=== PATIENT | male | born 1940 | race Caucasian/White ===

== ENCOUNTER → 2016-11-21 | Outpatient (CLI) | payer BC ==
[~2016-11-21] MED LIST: ACET-1311 PO; INSDGI SC; LYR25 PO; NVLGIPEN SQ; OMEP20CA9 PO; OXYC-57 PO; PREG200C PO; SUCR1TAB29 PO
--- NOTE | 2016-11-22 16:23 | DIAGNOSTIC IMAGING REPORT ---
PET/CT HISTORY: PANCREATIC CANCER TECHNIQUE: PET/CT was performed from the base of the skull through the pelvis following the intravenous administration of 13.5 mCi of F18-FDG. Non-contrast CT imaging was performed over the same range without breath-hold for attenuation correction of PET images and anatomic correlation, but not for primary interpretation as it is not of standard diagnostic quality. CT DOSE: COMPARISON: Outside hospital CT 11/03/2016. Chest abdomen and pelvis CT 08/14/2016. PET CT 03/28/2015. FINDINGS: HEAD AND NECK: Symmetric FDG uptake within the brain. A few enlarged and FDG avid left cervical and left neck base/supraclavicular lymph nodes. Dominant left cervical lymph node measures 1.6 cm and demonstrates an SUV max of 4.4. Cluster of the supraclavicular/neck base lymph nodes demonstrate an SUV max of 3.5. These are new from the prior PET/CT but remain unchanged in size from the prior outside hospital chest CT. CHEST: Moderate to large partially loculated left pleural effusion does not demonstrate abnormal FDG uptake. There are no enlarged or FDG avid mediastinal or hilar lymph nodes. Right jugular Port-A-Cath terminates in the distal SVC. No FDG avid or suspicious pulmonary nodules. Linear densities and consolidation within the left upper lobe and left lower lobe favor atelectasis. ABDOMEN/PELVIS: Postoperative changes consistent with prior Whipple procedure. No abnormal FDG uptake at the resection bed. There are no FDG avid hepatic or splenic lesions. Mild fat stranding within the right side of the omentum remains unchanged. This appears to be due to postoperative changes related to a ventral mesh repair. This demonstrate mild FDG uptake suggestive of postoperative change within the SUV max of 2. Given the stability this is unlikely to represent metastatic disease. No FDG avid or enlarged lymph nodes within the abdomen or pelvis. Small amount of ascites. The prostate gland is surgically absent. MUSCULOSKELETAL: There is no FDG-avid or destructive bone lesion. IMPRESSION: 1. Interval development of left cervical and left neck base/supraclavicular FDG avid lymphadenopathy. This favors recurrent lymphoma rather than pancreatic metastatic disease. 2. Moderate to large partially loculated left pleural effusion which does not demonstrate abnormal uptake. 3. No FDG avid or suspicious pulmonary nodules. 3. No abnormal FDG uptake within the abdomen or pelvis to suggest metastatic disease. Electronically signed by: Umesh aCrr M.D. 11/22/2016 4:21 PM Dictated Date/Time: 11/21/2016 11:50 AM
== END | disposition home or self-care (01) ==
LOC: C.PET 08:50
PROVIDERS: ATTEND Nurse Practitioner Family
DX: C25.0 Malignant neoplasm of head of pancreas (principal)

== ENCOUNTER → 2016-12-17 | Outpatient (CLI) | payer BC ==
--- NOTE | 2016-12-17 09:22 | DIAGNOSTIC IMAGING REPORT ---
CHEST 2 VIEWS ROUTINE CLINICAL HISTORY: Tachycardia carcinoma. Pleural effusion. COMPARISON STUDY: 11/12/2016 FINDINGS: There is a persistent left pleural effusion with associated left lower lobe atelectasis/consolidation. There has been no change in the position of the right-sided A-Port catheter. The right lung remains clear. No right pleural effusion is visualized.[ IMPRESSION: Persistent left pleural effusion with associated left basilar atelectasis/consolidation. Electronically signed by: Howard White M.D. 12/17/2016 9:21 AM Dictated Date/Time: 12/17/2016 9:17 AM
== END | disposition home or self-care (01) ==
LOC: C.RAD 08:42
PROVIDERS: ATTEND Nurse Practitioner Family
DX: C25.0 Malignant neoplasm of head of pancreas (principal); J90 Pleural effusion, not elsewhere classified

== ENCOUNTER → 2016-12-24 | Day surgery (SDC) | payer BC ==
--- NOTE | 2016-12-24 11:46 | DIAGNOSTIC IMAGING REPORT ---
ULTRASOUND-GUIDED FINE-NEEDLE ASPIRATION OF A LEFT CERVICAL LYMPH NODE HISTORY:. CERVICAL LYMPHADENECTOMY *REQUEST DENAE* COMPARISON: PET CT 11/21/2016. PROCEDURE: Written informed consent was obtained. The neck was prepped and draped in the usual sterile fashion. 1% lidocaine was used for local anesthesia. A total of 2 passes using a 25-gauge needle were made through a 1.4 cm left cervical lymph node under ultrasound guidance. Specimens were given to the on-site pathologist who determined adequate tissue for diagnosis. The patient tolerated the procedure well. There were no immediate complications. IMPRESSION: Successful ultrasound-guided fine-needle aspiration of a left cervical lymph node. Electronically signed by: Umesh Carr M.D. 12/24/2016 11:45 AM Dictated Date/Time: 12/24/2016 11:44 AM
== END | disposition home or self-care (01) ==
LOC: C.ULTR 10:32
PROVIDERS: ATTEND Surgery
DX: C25.9 Malignant neoplasm of pancreas, unspecified (principal); R59.0 Localized enlarged lymph nodes

== ENCOUNTER → 2016-12-31 | Outpatient (CLI) | payer BC ==
--- NOTE | 2016-12-31 10:12 | DIAGNOSTIC IMAGING REPORT ---
CHEST 2 VIEWS ROUTINE CLINICAL HISTORY: PANCREATIC CANCER COMPARISON STUDY: 12/17/2016 FINDINGS: The cardiac and mediastinal contours remain stable. There is a moderate left pleural effusion with associated left lower lobe atelectasis/consolidation. There is no right pleural effusion. The right lung is clear. The right-sided central venous catheter remains unchanged in position.[ IMPRESSION: Persistent moderate left pleural effusion with associated left lower lobe atelectasis/consolidation Electronically signed by: Howard White M.D. 12/31/2016 10:10 AM Dictated Date/Time: 12/31/2016 10:10 AM
== END | disposition home or self-care (01) ==
LOC: C.RAD 09:27
PROVIDERS: ATTEND Nurse Practitioner Family
DX: C25.0 Malignant neoplasm of head of pancreas (principal); J90 Pleural effusion, not elsewhere classified

== ENCOUNTER → 2017-01-02 | Outpatient (CLI) | payer BC | END | disposition home or self-care (01) | LOC: C.CPL 11:17 | PROVIDERS: ATTEND Surgery | DX: R59.0 Localized enlarged lymph nodes (principal); I25.10 Atherosclerotic heart disease of native coronary artery without angina pectoris ==

== ENCOUNTER 2017-01-10 08:57 | Day surgery (SDC) | payer BC ==
[2017-01-03 11:40] VITALS: BMI 26.0
[~2017-01-10] VITALS: Ht 190.5 cm; Wt 95.5 kg
[~2017-01-10 08:57] MED LIST changes: -ACET-1311 PO; +LACTATED RINGER'S 1000ML 1,000 ML IV SCH; -OXYC-57 PO; -PREG200C PO
[2017-01-10 09:15] VITALS: BP 140/73; PULSE 64; TEMP 36.9; O2SAT 97; Ht 190.5 cm; Wt 95.5 kg
[2017-01-10] MEDS ORDERED: ACET-1311 PO (10:41)
[2017-01-10] MEDS ORDERED: MIDAZOLAM HCL 1 MG/ML 2ML VIAL ONE (10:55)
[2017-01-10] MEDS ORDERED: PROPOFOL IV EMULSION 10 MG/ML 20 ML VIAL IV ONE (10:55)
[2017-01-10] MEDS ORDERED: ONDANSETRON INJ 2 MG/ML 2 ML VIAL ONE (10:55)
[2017-01-10] MEDS ORDERED: DEXAMETHASONE SOD INJ 4 MG/ML VIAL ONE (10:55)
[2017-01-10] MEDS ORDERED: FENTANYL CITRATE INJ 50 MCG/1 ML 2 ML VIAL ONE (10:55)
[2017-01-10] MEDS ORDERED: LIDOCAINE HCL 2% 2 ML VIAL (20MG/ML) ONE (10:55)
--- NOTE | 2017-01-10 11:47 | DIAGNOSTIC IMAGING REPORT ---
CT GUIDED WIRE LOCALIZATION OF LEFT LEVEL [address] DOSE: 332.34 mGycm CLINICAL HISTORY: Needle localization. COMPARISON STUDY: PET/CT November 21, 2016. PROCEDURE: The procedure, risks and benefits were discussed with the patient including the risk of bleeding, infection and injury to adjacent structures. The patient agreed to the procedure and informed written consent was obtained. The procedure was performed by Dr. Kong following a timeout. The patient was placed supine on the CT table and axial unenhanced images through the neck were obtained. These images again image demonstrated the 1.7 cm left level 2 cervical lymph node which was targeted for localization. Skin was prepped and draped in sterile fashion and local anesthesia was achieved with 1% lidocaine. Under intermittent CT guidance, a Singh 2 needle was directed into the superficial aspect of this lymph node. The needle was removed and the wire was deployed. The patient tolerated the procedure well and no immediate complications were evident. IMPRESSION: Wire localization of the left level 2 cervical lymph node. Electronically signed by: Rigo Kong M.D. 01/10/2017 11:46 AM Dictated Date/Time: 01/10/2017 11:43 AM
--- NOTE | 2017-01-10 11:54 | History & Physical Bridge Note ---
H&P Re-Evaluation Bridge Note: I have examined the patient, reviewed the History & Physical and in the interval since the performance of the History & Physical I have noted the following changes of clinical significance: No changes noted imaging with wire loc left neck mass done pt marked family at bedside
[2017-01-10] MEDS ORDERED: BUPIVACAINE 0.5 % 5 MG/1 ML MPF 30ML VIAL ONE (12:03)
[2017-01-10] MEDS ORDERED: ROCURONIUM BROMIDE 10 MG/ML 5 ML VIAL ONE (12:34)
[2017-01-10] MEDS ORDERED: HYDROmorphone INJ 1 MG/ML SYR IV PRN (12:45)
[2017-01-10] MEDS ORDERED: EpHEDrine SULFATE INJ 50 MG/ML AMP IV PRN (12:45)
[2017-01-10] MEDS ORDERED: ATROPINE SULFATE 0.1 MG/ML 5ML SYR IV PRN (12:45)
[2017-01-10] MEDS ORDERED: MEPERIDINE HCL 25 MG/ML CARP IV PRN (12:45)
[2017-01-10] MEDS ORDERED: LABETALOL HCL IV 5 MG/ML 20ML IV PRN (12:45)
[2017-01-10] MEDS ORDERED: ONDANSETRON INJ 2 MG/ML 2 ML VIAL IV PRN ×2 (12:45→13:30)
[2017-01-10] MEDS ORDERED: NEOSTIGMINE METHYLSULFATE 5 MG/5 ML SYR ONE (13:13)
[2017-01-10] MEDS ORDERED: GLYCOPYRROLATE INJ 0.2 MG/ML VIAL ONE (13:13)
--- NOTE | 2017-01-10 13:25 | [facility] Post Operative Brief Note ---
Immediate Operative Summary Operative Date January 10, 2017. Pre-Operative Diagnosis Cervical Lymphadenopathy history b-cell lymphoma Post-Operative Diagnosis Same Procedure(s) Performed Excisional Biopsy of Left Cervical Lymph Node with Prior Needle Localization By Radiology Surgeon Dr Andujar Vaccinator Surgeon(s) Gretchen Aguilar PA-C Estimated Blood Loss 5ML Findings cordell 2 cm node Specimens A. Left cervical Lymph node
[2017-01-10] MEDS ORDERED: OXYC-57 PO (13:29)
[2017-01-10] MEDS ORDERED: SODIUM CHLORIDE 0.9% 1000ML 1,000 ML IV SCH (13:30)
[2017-01-10] MEDS ORDERED: OXYCODONE/ACETAMINOPHEN 5-325 TAB PO PRN ×2 (13:30)
--- NOTE | 2017-01-10 13:38 | Discharge Instructions ---
Discharge Instructions Date of Service January 10, 2017. Admission Reason for Admission: Cervical Lymphadenopathy Discharge Discharge Diagnosis / Problem: Cervical Lymphadenopathy Discharge Goals Goal(s): Decrease discomfort Activity Recommendations Activity Limitations: as noted below Lifting Limitations: gradually increase as tolerated Exercise/Sports Limitations: gradually increase as tolerated May Resume Sexual Activity: when tolerated Shower/Bathe: tomorrow Driving or Machine Use: resume 3 days after discharge . Instructions / Follow-Up Instructions / Follow-Up Please call Dr. Andujar's office at [phone] with any questions or concerns. Please follow-up with Dr. Andujar in the office in 1-2 weeks. Please call the office at [phone] to make an appointment. Current Hospital Diet Patient's current hospital diet: Discharge Diet Recommended Diet: Regular Diet Procedures Procedures Performed: Excisional Biopsy of Left Cervical Lymph Node with Prior Needle Localization By Radiology Pending Studies Studies pending at discharge: yes List of pending studies: Pathology report. Medical Emergencies . Who to Call and When: Medical Emergencies: If at any time you feel your situation is an emergency, please call 911 immediately. . Non-Emergent Contact Non-Emergency issues call your: Primary Care Provider, Surgeon Call Non-Emergent contact if: temperature is above 101.5, your pain is not controlled, wound has increased drainage, wound has increased redness . "Provider Documentation" section prepared by Gretchen Aguilar. . VTE Core Measure Inpt VTE Proph given/why not?: SCD's
[2017-01-10] MEDS: FENTANYL CITRATE INJ 50 MCG/1 ML 2 ML VIAL IV PRN ×3 (13:43→13:58)
--- NOTE | 2017-01-10 14:26 | Anesthesiology Progress Note ---
Anesthesia Post Op Note Date & Time January 10, 2017 at 14:26 Vital Signs Pain Intensity: 4 Vital Signs Past 12 Hours Date Time Temp Pulse Resp B/P Pulse Ox O2 Delivery O2 Flow Rate FiO2 01/10/17 14:21 145/64 01/10/17 14:17 52 16 94 01/10/17 14:17 51 16 01/10/17 14:15 36.3 01/10/17 14:12 52 16 01/10/17 14:12 55 16 94 01/10/17 14:11 151/74 01/10/17 14:09 54 16 01/10/17 14:09 54 16 94 01/10/17 14:07 118/72 01/10/17 14:04 65 13 94 01/10/17 14:04 70 13 01/10/17 14:03 60 14 92 01/10/17 14:03 60 14 01/10/17 13:58 61 16 94 01/10/17 13:58 58 16 01/10/17 13:56 127/90 01/10/17 13:53 60 16 94 01/10/17 13:53 60 16 01/10/17 13:51 137/93 01/10/17 13:48 59 17 01/10/17 13:48 58 17 100 01/10/17 13:47 58 14 01/10/17 13:47 58 14 156/84 100 01/10/17 13:42 59 14 01/10/17 13:42 58 14 100 01/10/17 13:41 142/78 01/10/17 13:37 55 16 100 01/10/17 13:37 59 16 01/10/17 13:36 138/86 01/10/17 13:32 62 13 126/58 100 01/10/17 13:32 62 13 01/10/17 13:28 137/82 01/10/17 13:27 67 15 01/10/17 13:27 67 15 100 01/10/17 13:27 36.1 65 16 137/82 100 Mask 10 01/10/17 09:15 36.9 64 20 140/73 97 Room Air Notes Mental Status: alert / awake / arousable, participated in evaluation Pt Amnestic to Procedure: Yes Nausea / Vomiting: adequately controlled Pain: adequately controlled Airway Patency, RR, SpO2: stable & adequate BP & HR: stable & adequate Hydration State: stable & adequate Anesthetic Complications: no major complications apparent
[2017-01-10 14:30] VITALS: BP 145/76; PULSE 52; TEMP 36.6; O2SAT 94
[2017-01-10] MEDS ORDERED: OXYCODONE/ACETAMINOPHEN 5-325 TAB ONE (14:53)
[2017-01-10 14:59] VITALS: BP 163/76; PULSE 56; O2SAT 94
[2017-01-10 15:30] VITALS: BP 144/67; PULSE 55; TEMP 36.4; O2SAT 96
--- NOTE | 2017-01-10 15:30 | OPERATIVE REPORT ---
DATE OF OPERATION: 01/10/2017 PREOPERATIVE DIAGNOSIS: Left cervical lymphadenopathy, history of adenocarcinoma of the pancreas and B cell lymphoma. POSTOPERATIVE DIAGNOSIS: Same. PROCEDURE: Excisional biopsy of left cervical lymph node with prior needle localization by radiology. SURGEON: Dr. Andujar. CAPTAIN WAITER: Gretchen Aguilar PA-C. OPERATION AND FINDINGS: SUMMARY: The patient was taken to the radiology under ultrasound guidance, a guidewire was positioned in the submandibular area of the lymph node that was less than 2 cm in size. I reviewed the x-rays with the radiologist prior to taking the patient to surgery and this seemed to be in the submandibular area as the largest one. At this point, the patient was brought into the operating room under general anesthetic. We had taken the cap off the guidewire before and had tapered it on the skin edge, but it was still intact. We at this point, prepped the area and properly draped. We made an incision just inferior to the wire as it was going underneath just parallel to the sternocleidomastoid muscle and the anterior surface. We dissected down, we got into a little fibrous tissue in that area since we were quite high. As we followed the guidewire down we got to the point that it seemed like there was some tissues reminiscent of lymph node but nothing significant, as we were seen by CAT scan. It looks like seemed to be a lot of fatty infiltration. At this point, I elected to enlarge the incision and made it approximately an inch and a half long and stayed at the edge of the sternocleidomastoid and opened up that area more and we were able then to identify the lymph node as stated in the right submandibular area. We stayed right on the lymph node and circumferentially went around it, ligating some little vessels to it. The lymph node was pretty much about 98% removed, it was about 2 cm or a little bit less in size. It was sent fresh for permanent study. The area was then checked for hemostasis and appeared satisfactory. We then closed the wound with 2-0 Vicryl and 4-0 Monocryl. Steri-Strips applied. The procedure was tolerated well by the patient. Estimated blood loss approximately 3 mL. The patient was taken to recovery room in good condition. I attest to the content of the Intraoperative Record and any orders documented therein. Any exceptio ns are noted below.
[2017-01-10 16:10] VITALS: BP 143/72; PULSE 54; TEMP 36.4; O2SAT 94
[2017-04-30] MEDS ORDERED: PREG200C PO (07:46)
== END 2017-01-10 16:25 | disposition home or self-care (01) ==
LOC: C.ACU 08:57
PROVIDERS: ATTEND Surgery
DX: R59.1 Generalized enlarged lymph nodes (principal); C83.31 Diffuse large B-cell lymphoma, lymph nodes of head, face, and neck; I25.10 Atherosclerotic heart disease of native coronary artery without angina pectoris; E11.9 Type 2 diabetes mellitus without complications; K21.9 Gastro-esophageal reflux disease without esophagitis; E11.42 Type 2 diabetes mellitus with diabetic polyneuropathy; E11.43 Type 2 diabetes mellitus with diabetic autonomic (poly)neuropathy; K31.84 Gastroparesis; I10 Essential (primary) hypertension; I73.9 Peripheral vascular disease, unspecified; G25.81 Restless legs syndrome; E78.5 Hyperlipidemia, unspecified; Z79.4 Long term (current) use of insulin; Z83.3 Family history of diabetes mellitus; Z80.3 Family history of malignant neoplasm of breast

== ENCOUNTER → 2017-01-21 | Outpatient (CLI) | payer BC ==
[~2017-01-21] MED LIST changes: +ACET-1311 PO; -LACTATED RINGER'S 1000ML 1,000 ML IV SCH; +PREG200C PO
--- NOTE | 2017-01-21 12:14 | DIAGNOSTIC IMAGING REPORT ---
CHEST 2 VIEWS ROUTINE CLINICAL HISTORY: Pleural effusion. Pancreatic cancer. Lymphoma. COMPARISON STUDY: Chest radiograph December 31, 2016. FINDINGS: A right internal jugular [id number] is in place. There is no pneumothorax. A moderate to large left pleural effusion is unchanged since prior exam. Associated left lower lung opacity is similar to prior exam. Right lung is clear. There is no evidence of pulmonary edema. IMPRESSION: No significant change in a moderate to large left pleural effusion with associated atelectasis/consolidation. Electronically signed by: Rigo Kong M.D. 01/21/2017 12:13 PM Dictated Date/Time: 01/21/2017 12:11 PM
== END ==
LOC: C.RAD 11:19
PROVIDERS: ATTEND Nurse Practitioner Family
DX: C25.0 Malignant neoplasm of head of pancreas (principal)

== ENCOUNTER → 2017-03-25 | Outpatient (CLI) | payer BC ==
--- NOTE | 2017-03-25 11:01 | DIAGNOSTIC IMAGING REPORT ---
CHEST 2 VIEWS ROUTINE CLINICAL HISTORY: PANCREATIC CA, FOLLICULAR LYMPHOMA GRADE 3 COMPARISON STUDY: 01/21/2017 FINDINGS: The cardiac and mediastinal contours remain stable. There is a right-sided A-Port catheter. There is a persistent moderate left pleural effusion with associated left lower lobe atelectasis/consolidation. The right lung remains clear.[ IMPRESSION: Persistent moderate left pleural effusion with associated left lower lobe atelectasis/consolidation. Electronically signed by: Howard White M.D. 03/25/2017 10:59 AM Dictated Date/Time: 03/25/2017 10:58 AM
== END | disposition home or self-care (01) ==
LOC: C.RAD 10:25
PROVIDERS: ATTEND Nurse Practitioner Family
DX: C82.81 Other types of follicular lymphoma, lymph nodes of head, face, and neck (principal); J90 Pleural effusion, not elsewhere classified; J98.11 Atelectasis; C25.9 Malignant neoplasm of pancreas, unspecified

== ENCOUNTER → 2017-05-01 | Day surgery (SDC) | payer BC ==
[2017-04-30 07:47] VITALS: BMI 26.0
[~2017-05-01] VITALS: Ht 190.5 cm; Wt 95.5 kg
[~2017-05-01] MED LIST changes: +FENTANYL CITRATE INJ 50 MCG/1 ML 2 ML VIAL ONE; +LIDOCAINE HCL 2% 2 ML VIAL (20MG/ML) ONE; -LYR25 PO; +ONDANSETRON INJ 2 MG/ML 2 ML VIAL IV PRN; +PROPOFOL IV EMULSION 10 MG/ML 20 ML VIAL IV ONE
[2017-05-01 08:15] VITALS: Ht 190.5 cm; Wt 95.5 kg
--- NOTE | 2017-05-01 08:21 | Endo History and Physical ---
History & Physical Date of Service: May 01, 2017. Chief Complaint: Abnormal CT Referring Physician: Dr. Navarro History of Present Illness Patient with a history of pancreatic cancer and lymphoma found to have thickening esophagus on a prior CT. The patient has been referred for endoscopic evaluation. He denies having chest pain, shortness of breath or difficulty with swallowing. Past Medical History Diabetes, Reflux, Cancer Past Surgical History Hx Cardiac Surgery: No Hx Internal Defibrillator: No Hx Pacemaker: No Hx Abdominal Surgery: No Hx of Implantable Prosthesis: No Hx Post-Op Nausea and Vomiting: No Hx Cancer Surgery: Yes (PROSTATECTOMY, WHIPPLE PROCEDURE) Hx Thoracic Surgery: Yes (THORACENTESIS) Hx Orthopedic: Yes (LOW BACK SURGERY) Hx Urinary Tract Surgery: No Family History None Social History Smoking Status: Never Smoker Hx Substance Use: No Hx Alcohol Use: No Allergies Coded Allergies: Ezetimibe (Verified Allergy, Unknown, "JUST DIDN'T FEEL RIGHT", 04/30/17) Gabapentin (Verified Allergy, Unknown, "JUST DIDN'T FEEL RIGHT", 04/30/17) Current Medications Reported Home Medications Medications Dose Route/Sig Max Daily Dose Days Date Category Dose Instructions Lyrica (Pregabalin) 200 Mg Cap 200 Mg PO BID 04/30/17 Reported Tylenol (Acetaminophen) 325 Mg Tab 650 Mg PO Q6H PRN 01/10/17 Reported Lantus (Insulin Glargine) Unknown Strength Inj Unknown Dose SC AMPM 01/03/17 Reported STATES HE USES ONLY WHEN NEEDED AND DOES NOT KNOW HOW MUCH HE GETS Novolog Flexpen (Insulin Aspart) 100 Units/Ml Inj 1 Unit SQ UD 01/03/17 Reported SLIDING SCALE Prilosec (Omeprazole) 20 Mg Cap 20 Mg PO QAM 07/05/16 Reported Carafate (Sucralfate) 1 Gm Tab 1 Gm PO QAM 07/05/16 Reported Vital Signs Weight (Kilograms): 95.45 Height (Feet): 6 Height (Inches): 3 Physical Exam General Appearance: no apparent distress Respiratory/Chest: Auscultation: breath sounds normal, no rales/crackles Abdomen: Inspection & Palpation: soft Assessment and Plan Upper endoscopy today for evaluation of an abnormal CT scan. Discussed the risks to include bleeding, infection, aspiration, perforation and discomfort.
--- NOTE | 2017-05-01 08:54 | Discharge Instructions ---
Endoscopy Patient Instructions Date / Procedure(s) Performed May 01, 2017. EGD Allergy Information Coded Allergies: Ezetimibe (Verified Allergy, Unknown, "JUST DIDN'T FEEL RIGHT", 04/30/17) Gabapentin (Verified Allergy, Unknown, "JUST DIDN'T FEEL RIGHT", 04/30/17) Discharge Date / Findings May 01, 2017. Gastritis Small hiatal hernia Medication Instructions Reported Home Medications Medications Dose Route/Sig Max Daily Dose Days Date Category Dose Instructions Lyrica (Pregabalin) 200 Mg Cap 200 Mg PO BID 04/30/17 Reported Tylenol (Acetaminophen) 325 Mg Tab 650 Mg PO Q6H PRN 01/10/17 Reported Lantus (Insulin Glargine) Unknown Strength Inj Unknown Dose SC AMPM 01/03/17 Reported STATES HE USES ONLY WHEN NEEDED AND DOES NOT KNOW HOW MUCH HE GETS Novolog Flexpen (Insulin Aspart) 100 Units/Ml Inj 1 Unit SQ UD 01/03/17 Reported SLIDING SCALE Prilosec (Omeprazole) 20 Mg Cap 20 Mg PO QAM 07/05/16 Reported Carafate (Sucralfate) 1 Gm Tab 1 Gm PO QAM 07/05/16 Reported Provider Instructions Activity Restrictions - No exercising or heavy lifting for 24 hours. - Do not drink alcohol the day of the procedure. - Do not drive a car or operate machinery until the day after the procedure. - Do not make any important decisions or sign important papers in 24 hours after the procedure. Following Day: - Return to full activity which may include returning to work/school. Diet Start your diet with liquids and light foods (jello, soup, juice, toast). Then eat your usual diet if not nauseated. Treatment For Common After Affects For mild abdominal pain, bloating, or excessive gas: - Rest - Eat lightly - Lie on right side Follow-Up Information Follow-up with Eleanor MONIQUE as scheduled Await pathology results Follow-up with my office as needed Anesthesia Information What You Should Know You have had a procedure that required some medicine to reduce anxiety and discomfort. This treatment is called moderate sedation. After receiving the treatment, you may be sleepy, but you will be able to breathe on your own. The effects of the treatment may last for several hours. Follow these instructions along with Activity/Diet recommendations noted above: * Do NOT do anything where dizziness or clumsiness would be dangerous. * Rest quietly at home today, then you can be up and about tomorrow. * Have a responsible person stay with you the rest of today. * You may have had an I.V. today. If so, you may take the dressing off later today. Recommendations Call your doctor if: * Trouble breathing * Continuous vomiting for more than 24 hours * Temperature above 101 degrees * Severe abdominal pain or bloating * Pain not relieved by pain medicine ordered * There is increased drainage or redness from any incision * A large amount of rectal bleeding greater than 2-3 tablespoons. (If you had a polyp/s removed or have hemorrhoids, a small amount of blood - from the rectum is to be expected.) * You have any unanswered questions or concerns. IN THE EVENT OF A SERIOUS EMERGENCY, GO TO THE NEAREST EMERGENCY ROOM Your discharge instructions were prepared by provider Carrie Covington. Patient Instructions Signature Page Bo Guerra Patient (or Guardian) Signature/Date: I have read and understand the instructions given to me by my caregivers. Caregiver/RN/Doctor Signature/Date: The above-named patient and/or guardian has received patient instructions on this date. + Original Patient Signature Page (only) stays with chart. Please make copy for patient.
--- NOTE | 2017-05-01 08:59 | GI REPORT ---
Procedure Date: 05/01/2017 8:43 AM Procedure: Upper GI endoscopy Indications: Abnormal CT of the GI tract Medicines: Monitored Anesthesia Care Complications: No immediate complications. Estimated blood loss: Minimal. Estimated Blood Loss: Estimated blood loss was minimal. Procedure: Pre-Anesthesia Assessment: - Prior to the procedure, a History and Physical was performed, and patient medications, allergies and sensitivities were reviewed. The patient's tolerance of previous anesthesia was reviewed. - The patient is competent. The alternatives, risks and benefits of the procedure were discussed at length with the patient. The patient's proxy verbalized understanding of the risks as well as the alternatives and wished to proceed with the procedure. - The risks and benefits of the procedure and the sedation options and risks were discussed with the patient. All questions were answered and informed consent was obtained. - Patient identification and proposed procedure were verified prior to the procedure by the physician, the nurse and the paraprofessional aide. The procedure was verified in the procedure room. - Pre-procedure physical examination revealed no contraindications to sedation. - ASA Grade Assessment: III - A patient with severe systemic disease. - After reviewing the risks and benefits, the patient was deemed in satisfactory condition to undergo the procedure. - The anesthesia plan was to use monitored anesthesia care (MAC). - Immediately prior to administration of medications, the patient was re-assessed for adequacy to receive sedatives. - The heart rate, respiratory rate, oxygen saturations, blood pressure, adequacy of pulmonary ventilation, and response to care were monitored throughout the procedure. - The physical status of the patient was re-assessed after the procedure. After obtaining informed consent, the endoscope was passed under direct vision. Throughout the procedure, the patient's blood pressure, pulse, and oxygen saturations were monitored continuously. The Scope was introduced through the mouth, and advanced to the afferent and efferent jejunal loops. The upper GI endoscopy was accomplished without difficulty. The patient tolerated the procedure well. Findings: The examined esophagus was normal. A small hiatus hernia was found. The proximal extent of the gastric folds (end of tubular esophagus) was 39 cm from the incisors. The hiatal narrowing was 40 cm from the incisors. The Z-line was 39 cm from the incisors. Diffuse moderate inflammation characterized by congestion (edema) and erythema was found in the entire examined stomach. Biopsies were taken with a cold forceps for histology. Estimated blood loss was minimal. 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 This was characterized by healthy appearing mucosa. The examined jejunum was normal. Impression: - Normal esophagus. - Small hiatus hernia. - Bile gastritis. Biopsied. 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 - Normal examined jejunum. Recommendation: - Discharge patient to home (ambulatory). - Advance diet as tolerated today. - Await pathology results. - Return to my office PRN. Carrie Covington D.O. Carrie Covington, 05/01/2017 8:59:03 AM This report has been signed electronically. Note Initiated On: 05/01/2017 8:43 AM I attest to the content of the Intraoperative Record and orders documented therein, exceptions below
--- NOTE | 2017-05-01 09:12 | Anesthesiology Progress Note ---
Anesthesia Post Op Note Date & Time May 01, 2017 at 09:12 Vital Signs Pain Intensity: 0 Vital Signs Past 12 Hours Date Time Temp Pulse Resp B/P (MAP) Pulse Ox O2 Delivery O2 Flow Rate FiO2 05/01/17 08:54 61 16 94/58 (70) 96 Room Air 05/01/17 08:17 37.2 74 16 140/74 (96) 96 Room Air Notes Mental Status: alert / awake / arousable, participated in evaluation Pt Amnestic to Procedure: Yes Nausea / Vomiting: adequately controlled Pain: adequately controlled Airway Patency, RR, SpO2: stable & adequate BP & HR: stable & adequate Hydration State: stable & adequate Anesthetic Complications: no major complications apparent
[2017-05-01 09:24] VITALS: BP 109/74; PULSE 64; O2SAT 96
== END | disposition home or self-care (01) ==
LOC: C.GI 08:04
PROVIDERS: ATTEND Internal Medicine Gastroenterology
DX: R93.3 Abnormal findings on diagnostic imaging of other parts of digestive tract (principal); K29.50 Unspecified chronic gastritis without bleeding; K44.9 Diaphragmatic hernia without obstruction or gangrene; E11.9 Type 2 diabetes mellitus without complications; Z85.07 Personal history of malignant neoplasm of pancreas; Z79.4 Long term (current) use of insulin; Z90.79 Acquired absence of other genital organ(s)

== ENCOUNTER → 2017-05-06 | Outpatient (CLI) | payer BC ==
[~2017-05-06] MED LIST changes: -FENTANYL CITRATE INJ 50 MCG/1 ML 2 ML VIAL ONE; -LIDOCAINE HCL 2% 2 ML VIAL (20MG/ML) ONE; -ONDANSETRON INJ 2 MG/ML 2 ML VIAL IV PRN; -PROPOFOL IV EMULSION 10 MG/ML 20 ML VIAL IV ONE
[2017-05-06 08:43] LABS: ESTIMATED AVERAGE GLUCOSE 169 mg/dl; HA1C FLAG Normal (Normal)
== END | disposition home or self-care (01) ==
LOC: C.LAB 15:09
PROVIDERS: ATTEND Nurse Practitioner Family
DX: E11.9 Type 2 diabetes mellitus without complications (principal); C25.9 Malignant neoplasm of pancreas, unspecified

== ENCOUNTER → 2017-05-27 | Outpatient (CLI) | payer BC ==
--- NOTE | 2017-05-27 13:18 | DIAGNOSTIC IMAGING REPORT ---
PET/CT CLINICAL HISTORY: Pancreatic cancer. History of lymphoma and prostate cancer. TECHNIQUE: A PET/CT was performed from the skull base through the upper thighs following intravenous injection of 13.4 mCi of F 18 FDG IV. The injection was performed at 9:05 AM on May 27, 2017 and imaging began at 10:24 AM on May 27, 2017. Unenhanced CT was performed for attenuation correction purposes and anatomic localization. COMPARISON STUDY: PET/CT November 21, 2016. FINDINGS: Head and neck: The previously described index left sided cervical lymph node has been resected. The additional enlarged left cervical/supraclavicular lymph node shown on PET/CT of November 21, 2016 are now normal in size and have no significant abnormal FDG uptake. An index left supraclavicular lymph node shown on image 57 measures 7 mm in short axis diameter. It previously measured 1.1 cm. There is no cervical lymphadenopathy. A right internal jugular [id number] is in place. Chest: Bilateral gynecomastia is noted. A moderate size left pleural effusion has slightly decreased in size since prior exam. Associated pleural thickening is noted. Left lower lobe airspace opacity with volume loss suggests round atelectasis. There is no significant abnormal pleural FDG uptake. There are no suspicious pulmonary nodules. Note is made of a mildly enlarged right axillary lymph node shown image 71 measures 1.5 x 1 cm. This has mild FDG uptake with an SUV max of 2.3. This finding is new since PET/CT of November 21, 2016. Mild right infrahilar FDG uptake with an SUV max of 3.1 is noted. The SUV max previously measured 2.6. No corresponding enlarged lymph node is identified on unenhanced CT. Abdomen and Pelvis: No suspicious FDG uptake is identified within the abdomen or the pelvis. A few prominent para-aortic lymph nodes are noted. The largest is a left paraaortic lymph node located adjacent to the left renal vein shown on image 166. This node measures 1 cm in short axis diameter. This has no abnormal FDG uptake. Mild splenomegaly is similar to prior exam. A small amount of ascites is noted. There is no bowel obstruction. The prostate is surgically absent. Musculoskeletal: No suspicious skeletal uptake is identified. IMPRESSION: 1. Mildly enlarged right axillary lymph node which demonstrates mild FDG uptake, a new finding since PET/CT of November 21, 2016. While nonspecific, this favors lymphoma rather than metastatic pancreatic cancer. 2. Interval resolution of left cervical/supraclavicular lymphadenopathy since PET/CT of November 21, 2016. 3. Slight decrease in size of a moderate left pleural effusion with associated left lower lobe airspace opacity and volume loss which favors round atelectasis. 4. Slight increase in mild nonspecific right infrahilar FDG uptake. Electronically signed by: Rigo Kong M.D. 05/27/2017 1:16 PM Dictated Date/Time: 05/27/2017 11:47 AM
== END | disposition home or self-care (01) ==
LOC: C.PET 08:24
PROVIDERS: ATTEND Nurse Practitioner Family
DX: C25.9 Malignant neoplasm of pancreas, unspecified (principal)

== ENCOUNTER → 2017-08-28 | Outpatient (CLI) | payer BC ==
[~2017-08-28] MED LIST changes: +OPTIRAY 320 IV PRN
--- NOTE | 2017-08-28 15:22 | DIAGNOSTIC IMAGING REPORT ---
CHEST CT WITH CONTRAST CT DOSE: 1142.42 mGy.cm HISTORY: Pancreatic cancer. Follow-up. TECHNIQUE: Multiaxial CT images of the chest were performed following the intravenous administration of contrast. A dose lowering technique was utilized adhering to the principles of ALARA. COMPARISON: Head CT 05/27/2017. Chest CT 08/14/2016. FINDINGS: There is again noted a moderate partially loculated left pleural effusion. Mild left pleural thickening and enhancement also remains unchanged. Mild disc diffuse esophageal wall thickening is also unchanged. A few small left ventricular lymph nodes remain stable. Increase in size in a single enlarged right axillary lymph node measuring 1.8 x 1.2 cm. This previous measured 1.5 x 1.0 cm. Bilateral gynecomastia. No change in the scattered low density areas within the extrapleural space. These have a non masslike appearance. Dominant area of extrapleural density is seen adjacent to the T11 vertebral body on image 276. The heart remains mildly enlarged. The central pulmonary arteries are patent. Normal caliber thoracic aorta. Subcentimeter right anterior diaphragmatic lymph nodes remain stable. Persistent focal consolidation involving the majority of the left lower lobe. This favors round atelectasis. This remains unchanged. A few linear scarlike density seen within the lingula. The central airways are patent. No pneumothorax. No pulmonary nodules. No suspicious lytic or blastic osseous lesions. Right jugular Port-A-Cath terminates in the distal SVC. IMPRESSION: 1. Increase in size in the single enlarged right axillary lymph node. This is concerning for metastatic disease. 2. Subcentimeter left supraclavicular lymph nodes remain stable. 3. Moderate partially loculated left pleural effusion, unchanged. 4. No change in the suspected atelectasis within the majority of the left lower lobe. 5. Scattered low density areas within the left extrapleural space also remain unchanged. These have a non masslike appearance at this time. This bears watching on future examinations to exclude metastatic involvement. Electronically signed by: Umesh Carr M.D. 08/28/2017 3:21 PM Dictated Date/Time: 08/28/2017 3:09 PM
--- NOTE | 2017-08-28 15:27 | DIAGNOSTIC IMAGING REPORT ---
CT ABD/PELVIS IV AND ORAL CONT CLINICAL HISTORY: PANCREATIC CA COMPARISON STUDY: 08/14/2016 TECHNIQUE: Following the IV administration of 119 mL of Optiray-320, CT scan of the abdomen and pelvis was performed from the lung bases to the proximal femurs. Images are reviewed in the axial, sagittal, and coronal planes. IV contrast was administered without complication. A dose lowering technique was utilized adhering to the principles of ALARA. CT DOSE: FINDINGS: Lower chest: There are coronary artery calcifications present. There is a moderate left pleural effusion with left lower lobe atelectasis/consolidation. Liver: The contrast-enhanced liver is normal in size, contour, and attenuation. There is no intrahepatic biliary ductal dilatation. The hepatic veins and portal veins are patent. Gallbladder: Surgically absent Spleen: There is lower pole splenic scarring. The spleen is mildly enlarged measuring 13.8 cm. Pancreas: There are postsurgical changes of a prior Whipple's procedure. The pancreatic duct is at the upper limits of normal in diameter. The pancreas body and tail appears somewhat atrophic. There is a probable stent at the level of the pancreaticojejunostomy. Adrenal glands: Unremarkable. Kidneys: There is a 1 cm left renal hypodensity likely representing a cyst. There is no hydronephrosis. Bowel: There are no transition zones indicate bowel obstruction. There is no acute diverticulitis. There are no findings to indicate acute appendicitis. Peritoneum: There is decreasing ascites. There is no free air. Vasculature: The abdominal aorta is normal in course and caliber. Adenopathy: There are borderline enlarged para-aortic lymph nodes. In retrospect these remain similar to the preceding study. Pelvic viscera: There are postprostatectomy changes. There is bladder wall thickening. Skeletal structures: No destructive osseous lesions are seen. IMPRESSION: 1. Persistent moderate left pleural effusion with left lower lobe atelectasis/consolidation 2. Postsurgical changes of prior Whipple procedure 3. Persistent mild splenomegaly 4. Decreasing low volume ascites 5. Borderline enlarged hilar lymph nodes 6. Bladder wall thickening Electronically signed by: Howard White M.D. 08/28/2017 3:25 PM Dictated Date/Time: 08/28/2017 3:18 PM
== END | disposition home or self-care (01) ==
LOC: C.CTS 12:52
PROVIDERS: ATTEND Nurse Practitioner Family
DX: Z85.07 Personal history of malignant neoplasm of pancreas (principal); J90 Pleural effusion, not elsewhere classified; R18.8 Other ascites; N32.9 Bladder disorder, unspecified; R59.0 Localized enlarged lymph nodes; R91.8 Other nonspecific abnormal finding of lung field

== ENCOUNTER → 2017-09-10 | Outpatient (CLI) | payer BC ==
[~2017-09-10] MED LIST changes: -OPTIRAY 320 IV PRN
--- NOTE | 2017-09-10 11:49 | DIAGNOSTIC IMAGING REPORT ---
ULTRASOUND-GUIDED FINE-NEEDLE ASPIRATION CLINICAL HISTORY: 1.6 x 1.3 cm right axillary lymph node COMPARISON STUDY: CT chest 08/28/2017. PROCEDURE: The risks, benefits, and alternatives to the procedure were discussed with the patient. Written informed consent was obtained. The patient was placed supine in ultrasound, and the 1.6 x 1.3 cm lymph node in the right axilla was localized by ultrasound and selected for fine needle aspiration. The right axilla was prepped and draped in the usual sterile fashion. The lymph node was aspirated under ultrasound guidance with 5 passes utilizing 25-gauge needles. Specimens were reviewed by the pathologist in real-time and deemed adequate for diagnosis. The patient tolerated the procedure well and left the department in satisfactory condition. IMPRESSION: Completed fine-needle aspiration of a mildly enlarged right axillary lymph node as above. The above report was generated using voice recognition software. It may contain grammatical, syntax or spelling errors. Electronically signed by: Christiano Ruth M.D. 09/10/2017 11:48 AM Dictated Date/Time: 09/10/2017 11:46 AM
== END | disposition home or self-care (01) ==
LOC: C.ULTR 09:28
PROVIDERS: ATTEND Internal Medicine Hematology & Oncology
DX: Z85.07 Personal history of malignant neoplasm of pancreas (principal); C83.30 Diffuse large B-cell lymphoma, unspecified site

== ENCOUNTER 2017-10-15 08:06 | Day surgery (SDC) | payer BC ==
[2017-10-10 13:23] VITALS: BMI 28.0
[~2017-10-15] VITALS: Ht 188 cm; Wt 100.0 kg
[~2017-10-15 08:06] MED LIST changes: +LACTATED RINGER'S 1000ML 1,000 ML IV SCH; -NVLGIPEN SQ
[2017-10-15] MEDS ORDERED: PROPOFOL IV EMULSION 10 MG/ML 20 ML VIAL IV ONE (08:11)
[2017-10-15] MEDS ORDERED: LIDOCAINE HCL 2% 2 ML VIAL (20MG/ML) ONE (08:11)
[2017-10-15] MEDS ORDERED: FENTANYL CITRATE INJ 50 MCG/1 ML 2 ML VIAL ONE (08:11)
[2017-10-15] MEDS ORDERED: MIDAZOLAM HCL 1 MG/ML 2ML VIAL ONE (08:11)
[2017-10-15 08:50] VITALS: BP 131/72; PULSE 60; TEMP 36.6; O2SAT 96; Ht 188 cm; Wt 100.0 kg
--- NOTE | 2017-10-15 09:51 | History & Physical Bridge Note ---
H&P Re-Evaluation Bridge Note: I have examined the patient, reviewed the History & Physical and in the interval since the performance of the History & Physical I have noted the following changes of clinical significance: No changes notedpt marked at bedside
[2017-10-15] MEDS ORDERED: ONDANSETRON INJ 2 MG/ML 2 ML VIAL ONE (09:57)
[2017-10-15] MEDS ORDERED: BUPIVACAINE 0.5 % 5 MG/1 ML MPF 30ML VIAL ONE (09:59)
[2017-10-15] MEDS ORDERED: ATROPINE SULFATE 0.1 MG/ML 5ML SYR IV PRN (10:30)
[2017-10-15] MEDS ORDERED: EpHEDrine SULFATE INJ 50 MG/ML AMP IV PRN (10:30)
--- NOTE | 2017-10-15 10:52 | [facility] Post Operative Brief Note ---
Immediate Operative Summary Operative Date Oct 15, 2017. Pre-Operative Diagnosis right axilla enlarged lymph node; history lymphoma Post-Operative Diagnosis right axilla enlarged lymph node; history lymphoma Procedure(s) Performed Excisional Biopsy of Right Axillary Node with Frozen Section Surgeon Dr. Pawan Andujar Galley Hand Surgeon(s) Gretchen Aguilar PA-C Estimated Blood Loss 3ml Findings See Below 2 cm pathological lymph node Specimens Frozen Specimen: sent out of room to lab by Calos Rogel at 1046. -right axillary lymph node Microbiology:sent out of room to lab by Calos Rogel at 1046. -right axillary lymph node for culture (gram stain, anaerobic, aerobic, culture and sensitivity) Anesthesia Type MAC
[2017-10-15] MEDS ORDERED: SODIUM CHLORIDE 0.9% 1000ML 1,000 ML IV SCH (11:05)
[2017-10-15] MEDS ORDERED: OXYC-57 PO (11:09)
--- NOTE | 2017-10-15 11:11 | Discharge Instructions ---
Discharge Instructions Date of Service Oct 15, 2017. Admission Reason for Admission: Right Axillary Lymphadenopathy, Iddm Discharge Discharge Diagnosis / Problem: Right Axillary Lymphadenopathy, Iddm Discharge Goals Goal(s): Decrease discomfort, Improve function Activity Recommendations Activity Limitations: as noted below Lifting Limitations: no more than 10 pounds Exercise/Sports Limitations: until after follow-up appointment May Resume Sexual Activity: after follow-up appointment Shower/Bathe: tomorrow Driving or Machine Use: resume 3 days after discharge . Instructions / Follow-Up Instructions / Follow-Up Please follow-up with Dr. Andujar in 1-2 weeks in the General Surgery Clinic for incision check. Please call the office at [phone] to make an appointment. Please call the office with any questions or concerns. Current Hospital Diet Patient's current hospital diet: Discharge Diet Recommended Diet: Regular Diet Procedures Procedures Performed: Excisional Biopsy of Right Axillary Node with Frozen Section Pending Studies Studies pending at discharge: yes List of pending studies: Pathology report. Medical Emergencies . Who to Call and When: Medical Emergencies: If at any time you feel your situation is an emergency, please call 911 immediately. . Non-Emergent Contact Non-Emergency issues call your: Primary Care Provider, Surgeon Call Non-Emergent contact if: temperature is above 101.5, your pain is not controlled, wound has increased drainage, wound has increased redness . "Provider Documentation" section prepared by Gretchen Aguilar. . VTE Core Measure Inpt VTE Proph given/why not?: SCD's
[2017-10-15] MEDS ORDERED: ONDANSETRON INJ 2 MG/ML 2 ML VIAL IV PRN (11:15)
[2017-10-15] MEDS ORDERED: OXYCODONE/ACETAMINOPHEN 5-325 TAB PO PRN ×2 (11:15)
[2017-10-15 11:35] VITALS: BP 123/87; PULSE 51; TEMP 36.5; O2SAT 100
[2017-10-15 12:05] VITALS: BP 114/59; PULSE 51; TEMP 36.5; O2SAT 98
--- NOTE | 2017-10-15 12:13 | Anesthesiology Progress Note ---
Anesthesia Post Op Note Date & Time Oct 15, 2017 at 12:13 Vital Signs Pain Intensity: 0 Vital Signs Past 12 Hours Date Time Temp Pulse Resp B/P (MAP) Pulse Ox O2 Delivery O2 Flow Rate FiO2 10/15/17 11:35 36.5 51 20 123/87 100 Room Air 10/15/17 11:25 36.3 54 18 119/69 98 Room Air 10/15/17 11:15 82 24 118/80 97 Room Air 10/15/17 11:05 36.3 52 16 106/70 99 Oxymask 10 10/15/17 08:50 36.6 60 18 131/72 (91) 96 Room Air Notes Mental Status: alert / awake / arousable, participated in evaluation Pt Amnestic to Procedure: Yes Nausea / Vomiting: adequately controlled Pain: adequately controlled Airway Patency, RR, SpO2: stable & adequate BP & HR: stable & adequate Hydration State: stable & adequate Anesthetic Complications: no major complications apparent
--- NOTE | 2017-10-15 12:26 | OPERATIVE REPORT ---
DATE OF OPERATION: 10/15/2017 SURGEON: Dr. Andujar. FISHER DIP NET: Gretchen Aguilar PA-C. PREOPERATIVE DIAGNOSIS: History of lymphoma, right axillary lymph node, possible changing of lymphoma with transition. POSTOPERATIVE DIAGNOSIS: Same. PROCEDURE: Excisional biopsy of right axillary node. SUMMARY: The patient was brought into the operating room theater in supine position, we actually set him up a little bit, the right arm was placed on an arm board. We had palpated this area which was right underneath the right pectoralis area, probably a level 2 nodes. We at this point, with some IV sedation, the area was prepped with Betadine solution and properly draped. We used 0.5 Marcaine without epinephrine to infiltrate just at the edge of the pectoralis major, approximately a 2-inch area, and incision was made, deepened to subcutaneous tissue. We started at the edge of the pectoralis and went into the axilla where we could feel on the chest wall this node. We dissected it out, it was quite adherent to the chest wall. There were some nerve fibers in there but I am sure it was not related to any long thoracic nerve, we seemed to be quite anterior for that. At this point, once we freed this up, actually the lymph node came apart on its own, obviously pathologic was about 2 cm in size. We took it all out, it did come out in pieces. The area was then checked for hemostasis and appeared satisfactory. We closed with 2-0 Dexon a few interrupted bleeders and reapproximated the axillary fascia and the subcutaneous tissue and then Monocryl and Steri-Strips applied. The procedure was tolerated well by the patient. Estimated blood loss approximately 3 mL. The patient was taken to recovery room in good condition. I attest to the content of the Intraoperative Record and any orders documented therein. Any exception s are noted below.
== END 2017-10-15 12:19 | disposition home or self-care (01) ==
LOC: C.ACU 08:06
PROVIDERS: ATTEND Surgery
DX: C82.14 Follicular lymphoma grade II, lymph nodes of axilla and upper limb (principal); D64.9 Anemia, unspecified; I25.10 Atherosclerotic heart disease of native coronary artery without angina pectoris; E11.43 Type 2 diabetes mellitus with diabetic autonomic (poly)neuropathy; I10 Essential (primary) hypertension; K21.9 Gastro-esophageal reflux disease without esophagitis; M15.9 Polyosteoarthritis, unspecified; K74.60 Unspecified cirrhosis of liver; E78.5 Hyperlipidemia, unspecified; I44.7 Left bundle-branch block, unspecified; C25.9 Malignant neoplasm of pancreas, unspecified; I73.9 Peripheral vascular disease, unspecified; Z85.46 Personal history of malignant neoplasm of prostate; G25.81 Restless legs syndrome; E53.8 Deficiency of other specified B group vitamins; E55.9 Vitamin D deficiency, unspecified; Z79.4 Long term (current) use of insulin; Z79.899 Other long term (current) drug therapy

== ENCOUNTER → 2017-10-30 | Outpatient (CLI) | payer BC ==
[~2017-10-30] MED LIST changes: -LACTATED RINGER'S 1000ML 1,000 ML IV SCH
--- NOTE | 2017-10-30 10:46 | DIAGNOSTIC IMAGING REPORT ---
PET/CT SKULL-THIGH CLINICAL HISTORY: 77 years-old Male with LYPHOMA. Follow-up study in a patient with non-Hodgkin's lymphoma. Subsequent treatment strategy. Prior biopsy of enlarged right axillary lymph node. Patient also has a history of pancreatic cancer with prior Whipple procedure. Last chemotherapy treatment was 10/28/2017. History of prior prostate cancer. COMPARISON: CT chest, abdomen and pelvis 08/28/2017, PET CT 05/27/2017 TECHNIQUE: The patient was injected with 13.3 mCi of F-18 fluorodeoxyglucose (FDG) and an emission scan was performed from the skull vertex to the toes. Noncontrast CT was performed for attenuation correction and anatomic localization. The blood glucose level was 104 mg/dl. FINDINGS: HEAD AND NECK: There is a physiologic distribution of activity, with no hypermetabolic foci. Likely physiologic radiotracer uptake noted within the region of the lingual tonsils and salivary glands. CHEST: There is decreased size of the previously noted hypermetabolic and previously biopsied right axillary lymph node which measured 1.8 x 1.[address] chest dated 08/28/2017, now measuring 1.1 x 0.7 cm with SUV max measuring 1.4. No additional hypermetabolic adenopathy or hypermetabolic pulmonary foci identified. ABDOMEN AND PELVIS: There is a physiologic distribution of activity within the liver, spleen, adrenal glands, gastrointestinal and urinary tracts. No hypermetabolic adenopathy. Increased metabolic activity is noted within the descending sigmoid junction and proximal sigmoid colon with areas of hypermetabolic activity measuring up to SUV max of 9.7 within the proximal sigmoid colon as seen on image 225 of series 2. No corresponding mass or definite soft tissue thickening identified. These findings are likely physiologic. MUSCULOSKELETAL SYSTEM AND EXTREMITIES: There is a physiologic distribution of activity within the bone marrow, with no hypermetabolic foci. Mildly increased symmetric uptake about the bilateral shoulders is likely secondary to recent activity or inflammatory changes. ADDITIONAL CT FINDINGS: Right internal jugular [id number] catheter is again noted with distal tip terminating near the superior cavoatrial junction. Heart is mildly enlarged with coronary arterial disease. Bilateral moderate gynecomastia. No pathologically enlarged lymph nodes of the chest identified. Coronary arterial disease with aortic annular calcifications. No aortic aneurysm. Moderate sized partially loculated left pleural effusion again noted which appears unchanged with left basilar consolidation also unchanged suggesting atelectasis. Ill-defined areas of low-attenuation within the extrapleural space adjacent to the left lung base are unchanged. Atherosclerosis of the carotid bulbs. No suspicious pulmonary nodules identified. No pneumoperitoneum or pneumatosis. Postsurgical changes from prior Whipple procedure. The spleen does not appear to be significantly enlarged. Mild nonspecific bilateral perinephric and diffuse mesenteric stranding. Postoperative changes from prior prostatectomy. Mild wall thickening of the urinary bladder with partial distention, nonspecific. Moderate volume of formed stool throughout the colon suggest constipation. Colonic diverticulosis without diverticulitis. Normal appendix. Diastases recti. Multilevel degenerative changes about the spine. No suspicious lytic or blastic bony lesions are identified. Postsurgical changes of the lower lumbar spine. IMPRESSION: 1. Decreased size and metabolic activity of the previously biopsied right axillary lymph node, compatible with positive response to therapy. No new pathologically enlarged or hypermetabolic adenopathy. 2. Moderate sized partially loculated left pleural effusion with associated probable left basilar atelectasis is also unchanged. 3. Areas of increased radiotracer uptake about the descending sigmoid colon junction and sigmoid colon are likely physiologic without corresponding abnormality seen on the CT images. These findings could be correlated with colonoscopy. 4. Additional incidental CT findings as above. The above report was generated using voice recognition software. It may contain grammatical, syntax or spelling errors. Electronically signed by: Christiano Ruth M.D. 10/30/2017 10:45 AM Dictated Date/Time: 10/30/2017 9:44 AM
== END | disposition home or self-care (01) ==
LOC: C.PET 06:45
PROVIDERS: ATTEND Internal Medicine Hematology & Oncology
DX: C85.90 Non-Hodgkin lymphoma, unspecified, unspecified site (principal); Z85.07 Personal history of malignant neoplasm of pancreas

== ENCOUNTER → 2018-03-18 | Outpatient (CLI) | payer BC | END | disposition home or self-care (01) | LOC: C.LABSPEC 10:34 | PROVIDERS: ATTEND Nurse Practitioner Family | DX: R35.0 Frequency of micturition (principal); R32 Unspecified urinary incontinence ==

== ENCOUNTER 2018-08-18 10:10 | Inpatient (IN) ==
[2018-08-18] MEDS ORDERED: GLUCAGON FOR INJ 1 MG VIAL SQ PRN (11:54)
[2018-08-18] MEDS ORDERED: DEXTROSE 50% 50 ML SYRINGE IV PRN (11:54)
[2018-08-18] MEDS ORDERED: ACETAMINOPHEN 325 MG TAB PO PRN (11:54)
[2018-08-18] MEDS ORDERED: GLUCOSE 40% GEL 15 GM TUBE PO PRN (11:54)
[2018-08-18] MEDS ORDERED: GLUCOSE 10 TABS/TUBE PO PRN (11:54)
[2018-08-18] MEDS ORDERED: LACTATED RINGER'S 1,000 ML IV SCH (12:00)
--- NOTE | 2018-08-18 12:12 | History & Physical Report ---
Date of Service August 18, 2018 Assessment & Plan (1) Hypokalemia: Patient with longstanding diarrhea, acutely worsening over the last few days as well as poor PO intake. Hypokalemia with K=2.5. He was administered 40mEq in clinic * Check EKG * Administer 60mEq potassium now * Repeat BMP at 16:00 today, provide additional K supplementation as needed * Patient may benefit from daily K supplement on discharge * Present on Admission?: Yes (2) Diarrhea: Patient reports chronic diarrhea over the last year with acute worsening over the last few days. Denies fever, abdominal pain or bloating. No dietary changes, no sick contacts. Infectious, vs chemotherapy induced, vs malabsorption * Check stool culture * Check stool for c.diff * If negative infectious workup may consider adding anti-diarrhea agents * Present on Admission?: Yes (3) Diabetes: Well controlled on Lantus 30u qHS. Last AIC=5.9 on 06/09/18. Blood sugar on labs [id number] * Contiue Lantus 30u qHS * CC diet as tolerated * ISS * Continue to monitor * Present on Admission?: Yes (4) GERD (gastroesophageal reflux disease): Patient with history of GERD. Has Omeprazole and Carafate as outpatient which he does not routinely use * Protonix 40mg po daily * Present on Admission?: Yes (5) HTN (hypertension): Blood pressure 122/71 in office. Patient is presently not on any anti- hypertensive agents. * Continue to monitor * Present on Admission?: Yes (6) Lymphoma: Patient with NHL presently on chemotherapy. Follows with Oncology * Oncology consultation - appreciate assistance with this case * Present on Admission?: Yes (7) H/O malignant neoplasm of pancreas: Patient s/p Whipple. * Oncology consult as above * F/E/N - LR at 80mL/hr x 1 liter, Potassium x 60mEq now, repeat BMP at 16:00 with additional supplementation as needed. Check BMP, Mg and PO4 in AM, CC diet as tolerated Ppx - Lovenox for DVT ppx, Protonix daily Code - Full per discussion with patient Dispo - Admit to medical floor Present on Admission?: Yes History of Present Illness Chief Complaint: Weakness Primary Care Provider: NO PCP Mr. 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 Patient is s/p Whipple 08/05/15. He is presently receiving Paclitaxel, Gemcitabine chemotherapy and follows with Dr. Bev Braga from Oncology. Patient reports chronic diarrhea for years. Reports that over the last few days his diarrhea worsened - became green in color, foul smelling with mucus. He reports approximately 6 episodes per day of watery stool as well as night time episodes with incontinence. Stools are explosive at times. He denies abdominal pain or bloating. Denies fevers/chills or sweats. He reports poor appetite and decreased PO intake. Additionally patient is complaining of diffuse weakness, feeling that he "lost his power". He was seen in clinic today and had labs drawn - significant for hypokalemia, K=2.5. He was administered Magnesium x 2gm and Potassium x 40mEq and sent to [facility] for direct admission for continued repletion and monitoring. Patient is presently without additional complaints. Specifically denies fevers , chills, sweats, dizziness, presyncope, CP, palpitations, SOB, cough, wheeze, abdominal pain, dysuria, numbness/weakness or loss of balance. Allergies Allergy/AdvReac Type Severity Reaction Status Date / Time ezetimibe Allergy Unknown "JUST Verified 06/08/18 15:03 DIDN'T FEEL RIGHT" gabapentin Allergy Unknown "JUST Verified 06/08/18 15:03 DIDN'T FEEL RIGHT" Home Medications Home Medications Medication Instructions Recorded Confirmed Type insulin glargine [Lantus U-100 30 unit SUBCUT HS 04/30/18 06/08/18 History Insulin] omeprazole 20 mg PO DAILY PRN 04/30/18 06/08/18 History pregabalin [Lyrica] 200 mg PO BID 04/30/18 06/08/18 History sucralfate [Carafate] 1 dose PO QAM 04/30/18 06/08/18 History Past Med/Surg History Social History Current Living Situation: Spouse Feels Safe at Home: Yes Smoking Status: Former smoker Second Hand Exposure: No Hx Alcohol Use: No Hx Substance Use: No Beliefs That Will Affect Care: None Preferred Language: Yoruba Visual Impairment: No Limitations Review of Systems All systems reviewed & are unremarkable except as noted in HPI & below Physical Exam 2 Physical Exam: General: patient resting comfortably, NAD, non-toxic in appearance but appears fatigued and weak, AA&O x 4 Skin: warm, dry, intact, no rashes or lesions, multiple well healed abdominal surgical scars HEENT: NC/AT, PERRL, EOMI, anicteric sclera, conjunctiva without injection, external ear normal to inspection and nontender, nares patent, moist mucus membranes, dentition intact, no oropharyngeal lesions, neck supple, trachea midline, no LAD, no thyromegaly, no JVD Heart: +S1/S2, regular, no m/r/g, Mediport present right chest, non-tender, no erythema, edema or drainage Lungs: equal air entry bilaterally, no rales/rhonchi/wheezes Abd: +BS, soft, NT/ND, no masses/organomegaly/ascites Ext: warm, 2+ pulses in UE/LE bilaterally, no clubbing/cyanosis or edema Neuro: nonfocal, patient AA&O x 4, speech intact, no facial droop, moving all extremities on command with equal strength 5/5 Results & Data Laboratory Results Lab Results 08/18/18 Range/Units 12:22 POC Glucose 127 H (70-99) From Clinic 08/18/18: WBC=5.2 Hg=9.5 Hct=29.6 Plt=96 Ng=613 K=2.5 Ci=297 HCO3=26 BN=7 Cr=0.9 Ca=7.8 Mg=2.2 Alb=2.3 Code Status & VTE Plan Code Status Full per discussion with patient VTE Prophylaxis Plan VTE Prophylaxis will be ordered: Yes Critical Care Time Critical Care Time: No _ (1) Diarrhea Diarrhea type: unspecified type Qualified Code(s): R19.7 - Diarrhea, unspecified (2) Diabetes Diabetes mellitus type: type 2 Diabetes mellitus [facility] insulin use: with [facility] use Diabetes mellitus complication status: without complication Diabetes mellitus complication detail: Diabetic retinopathy severity: Proliferative retinopathy type: Diabetes mellitus macular edema: Laterality : Chronic kidney disease stage: Qualified Code(s): E11.9 - Type 2 diabetes mellitus without complications; Z79.4 - [facility] (current) use of insulin (3) GERD (gastroesophageal reflux disease) Esophagitis presence: esophagitis presence not specified Qualified Code(s): K21.9 - Gastro-esophageal reflux disease without esophagitis (4) HTN (hypertension) Hypertension type: essential hypertension Qualified Code(s): I10 - Essential (primary) hypertension (5) Lymphoma B-cell lymphoma type: Follicular lymphoma grade: Follicular lymphoma type : Hodgkin lymphoma type: Lymphoma site: Lymphoma type: non-Hodgkin Mature NK/T-cell lymphoma type: Non-Hodgkin lymphoma type: follicular Non- follicular lymphoma type: Other specified types of NK/T-cell lymphoma:
[2018-08-18] MEDS ORDERED: POTASSIUM CHLORIDE 20 MEQ TABCR PO ONE ×2 (12:15→21:00)
[2018-08-18] MEDS: INSULIN ASPART 100 UNITS/ML 3 ML PEN SC SCH ×3 (13:08→21:20)
[2018-08-18 16:43] LABS: INR 1.3 (0.9-1.1); Partial Thromboplastin Ratio 1.5; Partial Thromboplastin Time 38.1 Seconds (21.0-31.0); Prothrombin Time 12.5 Seconds (9.0-12.0)
[2018-08-18 16:48] LABS: BUN Creatinine Ratio 8.9 (10-20); Calcium 7.2 mg/dl (8.5-10.1); Creatinine Clr Calc Pharmacy 92.2 ml/min; Est GFR (African American) 100.9; Est GFR (Non-African American) 87.1; Potassium 2.8 mmol/L (3.5-5.1)
[2018-08-18] MEDS: MAGNESIUM SULFATE / D5W 1 GM/100 ML BAG IV SCH ×2 (21:19→22:23)
[2018-08-18] MEDS: PREGABALIN 100 MG CAP PO SCH (21:19)
[2018-08-18] MEDS: ENOXAPARIN INJ 40 MG/0.4 ML SYR SQ SCH (21:20)
[2018-08-18] MEDS: INSULIN GLARGINE SOLOSTAR 100 UNITS/ML 3 ML PEN SC SCH (21:22)
[2018-08-19 05:45] LABS: Hematocrit (blood only) 24.7 % (42-52); Hemoglobin 7.9 g/dL (14.0-18.0); Mean Corpuscular Volume 79.2 fL (80-100); RDW Standard Deviation 51.9 fL (36.4-46.3); Red Blood Count 3.12 M/uL (4.7-6.1)
[2018-08-19 06:04] LABS: Mean Platelet Volume 9.1 fL (7.4-10.4); Platelet Count 96 K/uL (130-400)
[2018-08-19 06:08] LABS: Basophils # (auto) 0.01 K/uL (0-0.2); Basophils % (auto) 0.3 %; Eosinophils # (auto) 0.05 K/uL (0-0.5); Eosinophils % (auto) 1.3 %; Immature Granulocytes # (auto) 0.02 K/uL (0.00-0.02); Immature Granulocytes % (auto) 0.5 %; Lymphocytes # (auto) 1.21 K/uL (1.2-3.4); Lymphocytes % (auto) 30.3 %; Monocytes # (auto) 0.44 K/uL (0.11-0.59); Neutrophils # (auto) 2.27 K/uL (1.4-6.5); Neutrophils % (auto) 56.6 %; RBC Morphology Unremarkable
[2018-08-19 06:22] LABS: BUN Creatinine Ratio 10.4 (10-20); Calcium 7.3 mg/dl (8.5-10.1); Creatinine Clr Calc Pharmacy 114.2 ml/min; Est GFR (African American) 110.2; Est GFR (Non-African American) 95.1; Magnesium 2.4 mg/dl (1.8-2.4); Potassium 3.2 mmol/L (3.5-5.1)
[2018-08-19] MEDS ORDERED: HEPARIN 100 UNIT/ML 5ML FLUSH FLUSH PRN (06:26)
[2018-08-19] MEDS: PANTOprazole 40 MG TAB PO SCH (08:13)
[2018-08-19] MEDS: PREGABALIN 100 MG CAP PO SCH ×2 (08:13→20:47)
[2018-08-19] MEDS ORDERED: POTASSIUM CHLORIDE 10 MEQ TABCR PO STA (08:18)
[2018-08-19] MEDS: INSULIN ASPART 100 UNITS/ML 3 ML PEN SC SCH ×4 (08:58→20:50)
[2018-08-19] MEDS ORDERED: POTASSIUM CHLORIDE / WTR 20 MEQ/100 ML PLCT IV ONE (09:00)
--- NOTE | 2018-08-19 09:01 | Hospitalist Progress Note ---
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 Patient is s/p Whipple 08/05/15. He is presently receiving Paclitaxel, Gemcitabine chemotherapy and follows with Dr. Moran from Oncology. chronic diarrhea Getting worse in the last few days, Seems minimal improving, will continue supportive care, GI consult if needed, follow-up lab study results and stool study results Hypokalemia today's potassium 3.2, magnesium 2.4, replace and continue to watch Up on scheduled potassium supplementation daily upon discharge, Well-controlled diabetic continueon Lantus 30u qHS. Last AIC=5.9 on 06/09/18. Continue insulin sliding scale gastroesophageal reflux disease, continue Protonix 40mg po daily HTN, stable continue current medication, NHL presently on chemotherapy. Follows with Oncology H/O malignant neoplasm of pancreas, s/p Whipple. 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 Subjective Generally doing okay, pleasant, minimal fatigue, Reported continue has diarrhea, which is not new, he cannot control stools came out after recent stent placement 6 months ago Review of Systems Constitutional: Positive weakness, or fatigue Respiratory: no cough, sputum, wheezing, or dyspnea on exertion Cardiac: No chest pain, No orthopnea, No PND, No claudication, No palpitations , Abdomen: No pain, No nausea, No vomiting, No constipation, No GI bleeding Musculoskeletal: No joint pain, No muscle pain, No swelling, No calf pain, No problem reported : No dysuria, No urinary frequency, No incontinence, No hematuria Neurologic: No paralysis, No weakness, No numbness/tingling, No vertigo, No balance problems Psychiatric: No depression symptoms, No anhedonism, No anxiety, No insomnia, No substance abuse Heme: No abnormal bleeding/bruising, No clotting problems, No swollen lymph nodes, No night sweats Skin: No rash, No itch, No new/changing skin lesions, No color change, No bleeding Physical Exam 2 Vital Signs (Past 24 Hours): Last Vital Signs Temp 36.5 C 08/19/18 07:59 Pulse 71 08/19/18 07:59 Resp 20 08/19/18 07:59 BP 119/65 08/19/18 07:59 Pulse Ox 96 08/19/18 07:59 Physical Exam: General Appearance: WD/WN, no apparent distress, Eyes: normal inspection, PERRL, EOMI, sclerae normal ENT: normal ENT inspection, hearing grossly normal, pharynx normal Neck: supple, no adenopathy, thyroid normal, no JVD, no carotid bruits, trachea midline Respiratory/Chest: chest non-tender, normal breath sounds, no respiratory distress, no accessory muscle use, breath sounds, rales, wheezing Cardiovascular: regular rate, rhythm, no JVD, no murmur Abdomen: Hyper active bowel sounds, non tender, soft, no organomegaly, Extremities: normal range of motion, non-tender, normal inspection, no pedal edema, Neurologic/Psychiatric: acquisitions analyst II-XII nml as tested, no motor/sensory deficits, alert, normal mood/affect, oriented x 3 Skin: normal color, warm/dry, no rash Lymphatic: no adenopathy Results & Data Laboratory Results Laboratory Results - last 24 hr 08/18/18 08/18/18 08/18/18 12:22 16:21 16:21 WBC RBC Hgb Hct MCV MCH MCHC RDW Std Deviation RDW Coeff of Hortencia Plt Count MPV Immature Gran % (Auto) Neut % (Auto) Lymph % (Auto) Pine % (Auto) Eos % (Auto) Baso % (Auto) Immature Gran # (Auto) Neut # (Auto) Lymph # (Auto) Pine # (Auto) Eos # (Auto) Baso # (Auto) RBC Morphology PT 12.5 H INR 1.3 H APTT 38.1 H PTT Ratio 1.5 Sodium 137 Potassium 2.8 L Chloride 103 Carbon Dioxide 27 Anion Gap 7.0 BUN 7 Creatinine 0.78 Est Cr Clr Drug Dosing 92.2 Est GFR ( Amer) 100.9 Est GFR (Non-Af Amer) 87.1 BUN/Creatinine Ratio 8.9 L Glucose 125 H POC Glucose 127 H Calcium 7.2 L Ionized Calcium Magnesium 08/18/18 08/18/18 08/19/18 16:30 20:45 05:34 WBC RBC Hgb Hct MCV MCH MCHC RDW Std Deviation RDW Coeff of Hortencia Plt Count MPV Immature Gran % (Auto) Neut % (Auto) Lymph % (Auto) Pine % (Auto) Eos % (Auto) Baso % (Auto) Immature Gran # (Auto) Neut # (Auto) Lymph # (Auto) Pine # (Auto) Eos # (Auto) Baso # (Auto) RBC Morphology PT INR APTT PTT Ratio Sodium Potassium Chloride Carbon Dioxide Anion Gap BUN Creatinine Est Cr Clr Drug Dosing Est GFR ( Amer) Est GFR (Non-Af Amer) BUN/Creatinine Ratio Glucose POC Glucose 134 H 136 H Calcium Ionized Calcium 1.07 L Magnesium 08/19/18 08/19/18 08/19/18 05:34 05:34 07:44 WBC 4.00 L RBC 3.12 L Hgb 7.9 L Hct 24.7 L MCV 79.2 L MCH 25.3 MCHC 32.0 RDW Std Deviation 51.9 H RDW Coeff of Hortencia 19.0 H Plt Count 96 L MPV 9.1 Immature Gran % (Auto) 0.5 Neut % (Auto) 56.6 Lymph % (Auto) 30.3 Pine % (Auto) 11.0 Eos % (Auto) 1.3 Baso % (Auto) 0.3 Immature Gran # (Auto) 0.02 Neut # (Auto) 2.27 Lymph # (Auto) 1.21 Pine # (Auto) 0.44 Eos # (Auto) 0.05 Baso # (Auto) 0.01 RBC Morphology Unremarkable PT INR APTT PTT Ratio Sodium 140 Potassium 3.2 L Chloride 107 Carbon Dioxide 31 Anion Gap 2.0 L BUN 7 Creatinine 0.63 Est Cr Clr Drug Dosing 114.2 Est GFR ( Amer) 110.2 Est GFR (Non-Af Amer) 95.1 BUN/Creatinine Ratio 10.4 Glucose 64 L POC Glucose 75 Calcium 7.3 L Ionized Calcium Magnesium 2.4 _ (1) Diarrhea Diarrhea type: unspecified type Qualified Code(s): R19.7 - Diarrhea, unspecified (2) Diabetes Diabetes mellitus type: type 2 Diabetes mellitus 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 Diabetes mellitus complication status: without complication Diabetes mellitus complication detail: Diabetic retinopathy severity: Proliferative retinopathy type: Diabetes mellitus macular edema: Laterality : Chronic kidney disease stage: Qualified Code(s): E11.9 - Type 2 diabetes mellitus without complications; Z79.4 - [facility] (current[facility] use of insulin (3) GERD (gastroesophageal reflux disease) Esophagitis presence: esophagitis presence not specified Qualified Code(s): K21.9 - Gastro-esophageal reflux disease without esophagitis (4) HTN (hypertension) Hypertension type: essential hypertension Qualified Code(s): I10 - Essential (primary) hypertension (5) Lymphoma B-cell lymphoma type: Follicular lymphoma grade: Follicular lymphoma type : Hodgkin lymphoma type: Lymphoma site: Lymphoma type: non-Hodgkin Mature NK/T-cell lymphoma type: Non-Hodgkin lymphoma type: follicular Non- follicular lymphoma type: Other specified types of NK/T-cell lymphoma:
--- NOTE | 2018-08-19 09:58 | Oncology Consultation ---
Date of Consultation August 19, 2018 Assessment & Plan (1) Pancreatic cancer: Mr. Guerra has received 2 cycles of gemcitabine and Abraxane and his tolerance was reasonable until this episode. He will be due of restaging scans soon, so we will get a clearer sense of whether his treatment is working. In the meantime, we can check a CA 19-9, which will give us some sense of his disease status. Present on Admission?: Yes (2) Diarrhea: I suspect this is infectious, given the sudden onset and severity, but I cannot rule out chemotherapy-induced diarrhea. I would send stool cultures and studies for C diff. If these are negative, we can start imodium. In the meantime , I woud continue with supportive care and electrolyte repletion. Present on Admission?: Yes (3) Pancytopenia: Due to chemotherapy. His drop in hemoglobin may be dilutional given the hydration he's receiving, though he was incontinent overnight and is using the toilet, so we don't really have accurate I&O data. Still, I would consider a PRBC transfusion since he is below 8 and is very weak. Present on Admission?: Yes History of Present Illness Reason for Consultation: Metastatic pancreatic cancer Profuse diarrhea Attending Physician: Bharath Guzman MD, PhD, [facility] History of Present Illness Mr. Guerra is a 78 year old man with a history of multiple cancers. He was diagnosed in early 2014 with diffuse large B cell lymphoma. He was treated with R-EPOCH and had a complete metabolic remission. During the workup for the lymphoma, in Dec, 2014, he was found to have a pancreatic head adenocarcinoma. In July,, he had a Whipple procedure which revealed a T1 N0 cancer with negative margins. He was treated with adjuvant gemcitabine through May. He was then found to have a low-grade follicular lymphoma in an enlarged right axillary lymph node in November,. He was treated with 4 cycles of bendamustine and rituxan, with a complete response, followed by maintenance Rituxan. He has had a steadily rising CA 19-9 since late 2016. A PET/CT from March, demonstrated some uptake in his rectum. Several attempts to schedule a colonoscopy were made, though they were unsuccessful for various reasons. 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 He started gemcitabine and Abraxane for stage IV pancreatic cancer on 07/07/18. He came for treatment yesterday and was looking ill and very weak. He reported 3-4 days of profuse, watery, foul- smelling, green-colored diarrhea. He had up to 6 or more bowel movements per day in that time. He was hypokalemic in my office. He also was concerned about going home due to his weakness. I arranged for a direct admission as a result. Allergies Allergy/AdvReac Type Severity Reaction Status Date / Time ezetimibe Allergy Unknown "JUST Verified 06/08/18 15:03 DIDN'T FEEL RIGHT" gabapentin Allergy Unknown "JUST Verified 06/08/18 15:03 DIDN'T FEEL RIGHT" Home Medications Home Medications Medication Instructions Recorded Confirmed Type insulin glargine [Lantus U-100 30 unit SUBCUT HS 04/30/18 06/08/18 History Insulin] omeprazole 20 mg PO DAILY PRN 04/30/18 06/08/18 History pregabalin [Lyrica] 200 mg PO BID 04/30/18 06/08/18 History sucralfate [Carafate] 1 dose PO QAM 04/30/18 06/08/18 History Patient History Medical History Intractable pain (Acute 10/06/14) GERD (gastroesophageal reflux disease) (Chronic) HTN (hypertension) (Chronic) Non-occlusive coronary artery disease (Chronic) Febrile neutropenia (Resolved) Neutropenic fever (Acute) Diabetes (Chronic) NHL (non-Hodgkin's lymphoma) (Chronic 10/06/14) Pancreatic abnormality (Acute) IPMN (intraductal papillary mucinous neoplasm) (Chronic) Prostate cancer (Resolved) Diabetic gastroparesis (Chronic) Pancreatic cancer (Chronic) Obstructive jaundice (Chronic) Chemotherapy-induced neuropathy (Chronic) LBBB (left bundle branch block) (Chronic) [place] (acute kidney injury) (Chronic) Ascites (Chronic) Cirrhosis of liver (Chronic) Hypokalemia (Chronic) PVCs (premature ventricular contractions) (Chronic) Prolonged QT interval (Chronic) SBP (spontaneous bacterial peritonitis) (Chronic) Traumatic hematuria (Resolved) UTI (urinary tract infection) (Resolved) Iron deficiency anemia (Chronic) Hypotension (Resolved) Pancytopenia (Chronic) Neutropenia (Chronic) Back pain (Acute) Cholangitis (Chronic) Diarrhea Elevated lipase (Acute) Fever and chills (Acute) Hypokalemia (Acute) Lactic acidosis (Acute) Neutropenic fever (Acute) Right wrist pain (Acute) Sepsis (Acute) Wound drainage (Acute) Cancer PANCREATIC CANCER LYMPHOMA-CHEMO CURRENTLY (LAST 04/14/18) PROSTATE Diabetes mellitus, type 2 GERD (gastroesophageal reflux disease) Peripheral neuropathy Surgical History History of cardiac cath 5 YEARS AGO/NO STENTS History of cataract surgery History of colonoscopy History of pancreatic surgery Whipple procedure History of prostatectomy History of tooth extraction Social History Current Living Situation: Spouse Other Information That Helps Us Care for You: No Feels Safe at Home: Yes Safety Concerns: Feels Safe At This Time Smoking Status: Former smoker Do You Dip or Chew Tobacco: No Smoking End Date: 1994 Second Hand Exposure: No Tobacco Cessation Education Requested by Patient: No Hx Alcohol Use: No Hx Substance Use: No Beliefs That Will Affect Care: None Communication Ability: Effective Review of Systems Constitutional: + fatigue, + weakness and + anorexia; no fever Ear, Nose, Mouth, Throat: + dry mouth; no epistaxis and no bleeding gums Respiratory: no cough and no dyspnea Cardiovascular: no chest pain, no palpitations and no edema Gastrointestinal: as per Subjective / HPI Genitourinary (Male): no dysuria and no hematuria Musculoskeletal: + muscle weakness (generalized); no back pain Integumentary: no rash and no bleeding lesions Neurologic: + generalized weakness; no falls and no headache(s) Hematologic / Lymphatic: no easy bleeding and no easy bruising Physical Exam 2 Vital Signs (Past 24 Hours): Last Vital Signs Temp 36.5 C 08/19/18 07:59 Pulse 71 08/19/18 07:59 Resp 20 08/19/18 07:59 BP 119/65 08/19/18 07:59 Pulse Ox 96 08/19/18 07:59 Constitutional: + ill appearing; no acute distress Eyes: + anicteric sclerae and EOM intact bilaterally ENMT: Nose: + dry nasal mucous membranes Mouth: no oropharynx abnormality Respiratory: normal respiratory effort, lungs clear to auscultation Cardiovascular: RRR, no murmur, no edema Gastrointestinal (Abdomen): normal bowel sounds, soft, nontender, no hepatosplenomegaly Musculoskeletal: no cyanosis or clubbing, extremities motor strength 5/5 Lymphatic: no cervical or axillary lymphadenopathy Results & Data Laboratory Results Abnormal lab results 08/18/18 08/18/18 08/18/18 Range/Units 12:22 16:21 16:21 WBC (4.8-10.8) K/uL RBC (4.7-6.1) M/uL Hgb (14.0-18.0) g/dL Hct (42-52) % MCV (80-100) fL RDW Std Deviation (36.4-46.3) fL RDW Coeff of Hortencia (11.5-14.5) % Plt Count (130-400) K/uL PT 12.5 H (9.0-12.0) Seconds INR 1.3 H (0.9-1.1) APTT 38.1 H (21.0-31.0) Seconds Potassium 2.8 L (3.5-5.1) mmol/L Anion Gap (3-11) BUN/Creatinine Ratio 8.9 L (10-20) Glucose 125 H (70-99) mg/dl POC Glucose 127 H (70-99) Calcium 7.2 L (8.5-10.1) mg/dl Ionized Calcium (1.12-1.32) mmol/L 08/18/18 08/18/18 08/19/18 Range/Units 16:30 20:45 05:34 WBC (4.8-10.8) K/uL RBC (4.7-6.1) M/uL Hgb (14.0-18.0) g/dL Hct (42-52) % MCV (80-100) fL RDW Std Deviation (36.4-46.3) fL RDW Coeff of Hortencia (11.5-14.5) % Plt Count (130-400) K/uL PT (9.0-12.0) Seconds INR (0.9-1.1) APTT (21.0-31.0) Seconds Potassium (3.5-5.1) mmol/L Anion Gap (3-11) BUN/Creatinine Ratio (10-20) Glucose (70-99) mg/dl POC Glucose 134 H 136 H (70-99) Calcium (8.5-10.1) mg/dl Ionized Calcium 1.07 L (1.12-1.32) mmol/L 08/19/18 08/19/18 Range/Units 05:34 05:34 WBC 4.00 L (4.8-10.8) K/uL RBC 3.12 L (4.7-6.1) M/uL Hgb 7.9 L (14.0-18.0) g/dL Hct 24.7 L (42-52) % MCV 79.2 L (80-100) fL RDW Std Deviation 51.9 H (36.4-46.3) fL RDW Coeff of Hortencia 19.0 H (11.5-14.5) % Plt Count 96 L (130-400) K/uL PT (9.0-12.0) Seconds INR (0.9-1.1) APTT (21.0-31.0) Seconds Potassium 3.2 L (3.5-5.1) mmol/L Anion Gap 2.0 L (3-11) BUN/Creatinine Ratio (10-20) Glucose 64 L (70-99) mg/dl POC Glucose (70-99) Calcium 7.3 L (8.5-10.1) mg/dl Ionized Calcium (1.12-1.32) mmol/L _ (1) Pancreatic cancer Pancreatic malignancy location: head of pancreas Qualified Code(s): C25.0 - Malignant neoplasm of head of pancreas (2) Diarrhea Diarrhea type: unspecified type Qualified Code(s): R19.7 - Diarrhea, unspecified
[2018-08-19] MEDS: CARBOHYDRATES FOR HYPOGLYCEMIA PO PRN ×2 (11:55→12:30)
[2018-08-19] MEDS ORDERED: ONDANSETRON INJ 2 MG/ML 2 ML VIAL IV PRN (17:44)
[2018-08-19] MEDS: ENOXAPARIN INJ 40 MG/0.4 ML SYR SQ SCH (20:48)
[2018-08-19] MEDS: INSULIN GLARGINE SOLOSTAR 100 UNITS/ML 3 ML PEN SC SCH (20:50)
[2018-08-20 06:46] LABS: Hematocrit (blood only) 23.7 % (42-52); Hemoglobin 7.5 g/dL (14.0-18.0); Mean Corpuscular Hgb Conc 31.6 g/dL (32-36); Mean Corpuscular Volume 80.6 fL (80-100); Platelet Count 129 K/uL (130-400); RDW Coefficient of Variation 19.8 % (11.5-14.5); RDW Standard Deviation 56.3 fL (36.4-46.3); Red Blood Count 2.94 M/uL (4.7-6.1); White Blood Count 3.23 K/uL (4.8-10.8)
[2018-08-20 06:52] LABS: Calcium 7.2 mg/dl (8.5-10.1); Est GFR (African American) 108.1; Est GFR (Non-African American) 93.3; Phosphorus 1.8 mg/dl (2.5-4.9); Potassium 2.8 mmol/L (3.5-5.1)
[2018-08-20] MEDS: CARBOHYDRATES FOR HYPOGLYCEMIA PO PRN (06:59)
[2018-08-20 07:23] LABS: ALC (manual) 0.54 K/uL (1.2-3.4); Lymphocytes # (manual) 0.54 K/uL (1.2-3.4); Lymphocytes % (manual) 16.7 %; Microcytosis Present; Monocytes # (manual) 0.34 K/uL (0.11-0.59); Monocytes % (manual) 10.5 %; Neutrophils % (manual) 72.8 %
[2018-08-20] MEDS: INSULIN ASPART 100 UNITS/ML 3 ML PEN SC SCH ×4 (08:16→20:50)
[2018-08-20] MEDS: PREGABALIN 100 MG CAP PO SCH ×2 (08:19→20:48)
[2018-08-20] MEDS: PANTOprazole 40 MG TAB PO SCH (08:19)
[2018-08-20] MEDS ORDERED: POTASSIUM CHLORIDE 20 MEQ TABCR PO STA (09:09)
[2018-08-20] MEDS ORDERED: POTASSIUM PHOS 3 MMOL/1 ML INFUSION IV STA (09:10)
--- NOTE | 2018-08-20 09:40 | Hospitalist Progress Note ---
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 Patient is s/p Whipple 08/05/15. He is presently receiving Paclitaxel, Gemcitabine chemotherapy and follows with Dr. Moran from Oncology. chronic diarrhea Getting worse in the last few days prior to admission Improving however patient has obvious abnormal electrolytes will continue supportive care, So far stool culture CD4 negative, Hypokalemia/hypophosphatemia/hypomagnesemia Electrolytes checked and replaced, continue monitoring Episodes of hypoglycemic blood glucose at 40 , well-controlled diabetic continueon Lantus 30u qHS. Last AIC=5.9 on 06/09/18. Continue insulin sliding scale, hold Lantus this morning , following this afternoon blood glucose around 130, will continue hold Lantus gastroesophageal reflux disease, continue Protonix 40mg po daily HTN, stable continue current medication, NHL presently on chemotherapy. Follows with Oncology H/O malignant neoplasm of pancreas, s/p Whipple. Oncology consult as above Ppx - Lovenox for DVT ppx, Protonix daily Full code, Increase activity, PT OT, corrections caseworker for discharge plan Subjective Generally doing okay, pleasant, minimal fatigue, One bowel movement today, yesterday has 1-2 bowel movement, eating well no nausea vomiting, Nursing staff reported hypoglycemic and 40s improved later, Lantus on hold, Review of Systems Constitutional: Positive weakness, or fatigue Respiratory: no cough, sputum, wheezing, or dyspnea on exertion Cardiac: No chest pain, No orthopnea, No PND, No claudication, No palpitations , Abdomen: No pain, No nausea, No vomiting, No constipation, No GI bleeding Musculoskeletal: No joint pain, No muscle pain, No swelling, : No dysuria, No urinary frequency, No incontinence, No hematuria Neurologic: No paralysis, No weakness, No numbness/tingling, No vertigo, No balance problems Psychiatric: No depression symptoms, No anhedonism, No anxiety, Heme: No abnormal bleeding/bruising, No clotting problems, Skin: No rash, No itch, No new/changing skin lesions, No color change, No bleeding Physical Exam 2 Vital Signs (Past 24 Hours): Last Vital Signs Temp 36.2 C L 08/20/18 07:11 Pulse 67 08/20/18 07:11 Resp 16 08/20/18 07:11 BP 112/56 L 08/20/18 07:11 Pulse Ox 94 08/20/18 07:11 Physical Exam: General Appearance: WD/WN, no apparent distress, Eyes: normal inspection, PERRL, EOMI, sclerae normal ENT: normal ENT inspection, hearing grossly normal, pharynx normal Neck: supple, no adenopathy, thyroid normal, no JVD, no carotid bruits, trachea midline Respiratory/Chest: chest non-tender, normal breath sounds, no respiratory distress, Cardiovascular: regular rate, rhythm, no JVD, no murmur Abdomen: Hyper active bowel sounds, non tender, soft, no organomegaly, Extremities: normal range of motion, non-tender, normal inspection, no pedal edema, Neurologic/Psychiatric: testing consultant II-XII nml as tested, no motor/sensory deficits, alert, normal mood/affect, oriented x 3 Skin: normal color, warm/dry, no rash Lymphatic: no adenopathy Results & Data Laboratory Results Laboratory Results - last 24 hr 08/19/18 08/20/18 08/20/18 20:38 05:44 05:44 WBC 3.23 L RBC 2.94 L Hgb 7.5 L Hct 23.7 L MCV 80.6 MCH 25.5 MCHC 31.6 L RDW Std Deviation 56.3 H RDW Coeff of Hortencia 19.8 H Plt Count 129 L MPV 10.0 Neutrophils % (Manual) 72.8 Lymphocytes % (Manual) 16.7 Monocytes % (Manual) 10.5 Neutrophils # (Manual) 2.35 Total Absolute Neuts 2.35 Lymphocytes # (Manual) 0.54 L Total Abs Lymphocytes 0.54 L Monocytes # (Manual) 0.34 Microcytosis Present Acanthocytes (Spur) 1+ Sodium 138 Potassium 2.8 L Chloride 107 Carbon Dioxide 27 Anion Gap 4.0 BUN 7 Creatinine 0.66 Est Cr Clr Drug Dosing 109.0 Est GFR ( Amer) 108.1 Est GFR (Non-Af Amer) 93.3 BUN/Creatinine Ratio 10.0 Glucose 43 L* POC Glucose 148 H Calcium 7.2 L Phosphorus 1.8 L Magnesium 08/20/18 08/20/18 08/20/18 05:44 06:54 07:10 WBC RBC Hgb Hct MCV MCH MCHC RDW Std Deviation RDW Coeff of Hortencia Plt Count MPV Neutrophils % (Manual) Lymphocytes % (Manual) Monocytes % (Manual) Neutrophils # (Manual) Total Absolute Neuts Lymphocytes # (Manual) Total Abs Lymphocytes Monocytes # (Manual) Microcytosis Acanthocytes (Spur) Sodium Potassium Chloride Carbon Dioxide Anion Gap BUN Creatinine Est Cr Clr Drug Dosing Est GFR ( Amer) Est GFR (Non-Af Amer) BUN/Creatinine Ratio Glucose POC Glucose 62 L* 71 Calcium Phosphorus Magnesium 2.3 08/20/18 08/20/18 08/20/18 07:38 11:23 16:52 WBC RBC Hgb Hct MCV MCH MCHC RDW Std Deviation RDW Coeff of Hortencia Plt Count MPV Neutrophils % (Manual) Lymphocytes % (Manual) Monocytes % (Manual) Neutrophils # (Manual) Total Absolute Neuts Lymphocytes # (Manual) Total Abs Lymphocytes Monocytes # (Manual) Microcytosis Acanthocytes (Spur) Sodium Potassium Chloride Carbon Dioxide Anion Gap BUN Creatinine Est Cr Clr Drug Dosing Est GFR ( Amer) Est GFR (Non-Af Amer) BUN/Creatinine Ratio Glucose POC Glucose 100 H 127 H 130 H Calcium Phosphorus Magnesium Microbiology 08/19/18 15:05 Stool Escherichia coli Shiga Toxins - Preliminary 08/19/18 15:05 Stool Stool Culture - Preliminary No Salmonella isolated to date, No Shigella isolated to date, No Campylobacter jejuni isolated to date. 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: with regional intermodal truck driver use Diabetes mellitus macular edema: Diabetes mellitus type: type 2 Diabetic retinopathy severity: Laterality: Proliferative retinopathy type: Qualified Code(s): E11.9 - Type 2 diabetes mellitus without complications; Z79.4 - penitentiary (current) use of insulin (2) Diarrhea Diarrhea type: unspecified type Qualified Code(s): R19.7 - Diarrhea, unspecified (3) Lymphoma B-cell lymphoma type: Follicular lymphoma grade: Follicular lymphoma type : Hodgkin lymphoma type: Lymphoma site: Lymphoma type: non-Hodgkin Mature NK/T-cell lymphoma type: Non-Hodgkin lymphoma type: follicular Non- follicular lymphoma type: Other specified types of NK/T-cell lymphoma: (4) GERD (gastroesophageal reflux disease) Esophagitis presence: esophagitis presence not specified Qualified Code(s): K21.9 - Gastro-esophageal reflux disease without esophagitis (5) HTN (hypertension) Hypertension type: essential hypertension Qualified Code(s): I10 - Essential (primary) hypertension
[2018-08-20] MEDS ORDERED: POTASSIUM PHOSPHATE 21 MMOL in SODIUM CHLORIDE 0.9% 500 ML IV ONE ×2 (10:00→15:00)
[2018-08-20] MEDS: POTASSIUM CHLORIDE / WTR 20 MEQ/100 ML PLCT IV SCH ×2 (10:24→12:40)
[2018-08-20] MEDS: ENOXAPARIN INJ 40 MG/0.4 ML SYR SQ SCH (20:50)
[2018-08-21 07:54] LABS: Basophils # (auto) 0.01 K/uL (0-0.2); Basophils % (auto) 0.3 %; Eosinophils # (auto) 0.06 K/uL (0-0.5); Hematocrit (blood only) 25.1 % (42-52); Hemoglobin 7.8 g/dL (14.0-18.0); Immature Granulocytes # (auto) 0.03 K/uL (0.00-0.02); Lymphocytes # (auto) 0.87 K/uL (1.2-3.4); Lymphocytes % (auto) 29.2 %; Mean Corpuscular Hgb Conc 31.1 g/dL (32-36); Mean Corpuscular Volume 81.5 fL (80-100); Mean Platelet Volume 8.6 fL (7.4-10.4); Monocytes % (auto) 16.8 %; Neutrophils # (auto) 1.51 K/uL (1.4-6.5); Neutrophils % (auto) 50.7 %; Platelet Count 140 K/uL (130-400); RDW Coefficient of Variation 20.8 % (11.5-14.5); RDW Standard Deviation 59.6 fL (36.4-46.3); Red Blood Count 3.08 M/uL (4.7-6.1); White Blood Count 2.98 K/uL (4.8-10.8)
[2018-08-21] MEDS: PREGABALIN 100 MG CAP PO SCH ×2 (08:15→22:05)
[2018-08-21] MEDS: PANTOprazole 40 MG TAB PO SCH (08:15)
[2018-08-21 08:16] LABS: Anisocytosis Present; Poikilocytosis Present; Spherocytes 1+
[2018-08-21 08:44] LABS: BUN Creatinine Ratio 12.3 (10-20); Calcium 7.6 mg/dl (8.5-10.1); Est GFR (African American) 108.1; Est GFR (Non-African American) 93.3; Magnesium 2.2 mg/dl (1.8-2.4); Phosphorus 2.7 mg/dl (2.5-4.9)
[2018-08-21] MEDS: INSULIN ASPART 100 UNITS/ML 3 ML PEN SC SCH ×4 (08:50→22:05)
--- NOTE | 2018-08-21 09:53 | Hospitalist Progress Note ---
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 Patient is s/p Whipple 08/05/15. He is presently receiving Paclitaxel, Gemcitabine chemotherapy and follows with Dr. Moran from Oncology. chronic diarrhea Getting worse in the last few days prior to admission Improving however patient has obvious abnormal electrolytes will continue supportive care, So far stool culture Cdiff negative, Hypokalemia/hypophosphatemia/hypomagnesemia Electrolytes checked and replaced, continue monitoring Episodes of hypoglycemic blood glucose at 40 yesterday, well-controlled diabetic was on Lantus 30u qHS, continue to hold Last AIC=5.9 on 06/09/18. Continue insulin sliding scale, hold Lantus this morning , following this afternoon blood glucose around 130, will continue hold Lantus gastroesophageal reflux disease, continue Protonix 40mg po daily HTN, stable continue current medication, NHL presently on chemotherapy. Follows with Oncology H/O malignant neoplasm of pancreas, s/p Whipple. Oncology consult as above Ppx - Lovenox for DVT ppx, Protonix daily Full code, Increase activity, PT OT, Today want to out of bed to the chair, up and walk in the hallway, preparing going home tomorrow, Subjective Generally doing okay, pleasant, minimal fatigue, possible returning to baseline at home Number of bowel movement or diarrhea is quite the same when he was at home, eating well no nausea vomiting, Blood glucose was around 100-170, Lantus on hold because of hypoglycemia episodes yesterday, Review of Systems Constitutional: weakness, or fatigue is better Respiratory: no cough, sputum, wheezing, or dyspnea on exertion Cardiac: No chest pain, No orthopnea, No PND, No claudication, No palpitations , Abdomen: No pain, No nausea, No vomiting, No constipation, No GI bleeding Musculoskeletal: No joint pain, No muscle pain, No swelling, : No dysuria, No urinary frequency, No incontinence, No hematuria Neurologic: No paralysis, No weakness, No numbness/tingling, No vertigo, No balance problems Psychiatric: No depression symptoms, No anhedonism, No anxiety, Heme: No abnormal bleeding/bruising, No clotting problems, Skin: No rash, No itch, No new/changing skin lesions, No color change, No bleeding Physical Exam 2 Vital Signs (Past 24 Hours): Last Vital Signs Temp 36 C L 08/21/18 07:42 Pulse 63 08/21/18 07:42 Resp 18 08/21/18 07:42 BP 106/61 08/21/18 07:42 Pulse Ox 96 08/21/18 07:42 Results & Data Laboratory Results Laboratory Results - last 24 hr 08/20/18 08/21/18 08/21/18 20:16 07:26 07:44 WBC 2.98 L RBC 3.08 L Hgb 7.8 L Hct 25.1 L MCV 81.5 MCH 25.3 MCHC 31.1 L RDW Std Deviation 59.6 H RDW Coeff of Hortencia 20.8 H Plt Count 140 MPV 8.6 Immature Gran % (Auto) 1.0 Neut % (Auto) 50.7 Lymph % (Auto) 29.2 [place] % (Auto) 16.8 Eos % (Auto) 2.0 Baso % (Auto) 0.3 Immature Gran # (Auto) 0.03 H Neut # (Auto) 1.51 Lymph # (Auto) 0.87 L [place] # (Auto) 0.50 Eos # (Auto) 0.06 Baso # (Auto) 0.01 Poikilocytosis Present Anisocytosis Present Spherocytes 1+ Sodium Potassium Chloride Carbon Dioxide Anion Gap BUN Creatinine Est Cr Clr Drug Dosing Est GFR ( Amer) Est GFR (Non-Af Amer) BUN/Creatinine Ratio Glucose POC Glucose 170 H 91 Calcium Phosphorus Magnesium 08/21/18 08/21/18 08/21/18 07:44 11:35 16:46 WBC RBC Hgb Hct MCV MCH MCHC RDW Std Deviation RDW Coeff of Hortencia Plt Count MPV Immature Gran % (Auto) Neut % (Auto) Lymph % (Auto) [place] % (Auto) Eos % (Auto) Baso % (Auto) Immature Gran # (Auto) Neut # (Auto) Lymph # (Auto) [place] # (Auto) Eos # (Auto) Baso # (Auto) Poikilocytosis Anisocytosis Spherocytes Sodium 139 Potassium 4.0 D Chloride 107 Carbon Dioxide 25 Anion Gap 7.0 BUN 8 Creatinine 0.66 Est Cr Clr Drug Dosing 109.0 Est GFR ( Amer) 108.1 Est GFR (Non-Af Amer) 93.3 BUN/Creatinine Ratio 12.3 Glucose 91 POC Glucose 120 H 147 H Calcium 7.6 L Phosphorus 2.7 Magnesium 2.2 Microbiology 08/19/18 15:05 Stool Escherichia coli Shiga Toxins - Preliminary 08/19/18 15:05 Stool Stool Culture - Preliminary No Salmonella isolated to date, No Shigella isolated to date, No Campylobacter jejuni isolated to date. 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 insulin (2) Diarrhea Diarrhea type: unspecified type Qualified Code(s): R19.7 - Diarrhea, unspecified (3) Lymphoma B-cell lymphoma type: Follicular lymphoma grade: Follicular lymphoma type : Hodgkin lymphoma type: Lymphoma site: Lymphoma type: non-Hodgkin Mature NK/T-cell lymphoma type: Non-Hodgkin lymphoma type: follicular Non- follicular lymphoma type: Other specified types of NK/T-cell lymphoma: (4) GERD (gastroesophageal reflux disease) Esophagitis presence: esophagitis presence not specified Qualified Code(s): K21.9 - Gastro-esophageal reflux disease without esophagitis (5) HTN (hypertension) Hypertension type: essential hypertension Qualified Code(s): I10 - Essential (primary) hypertension
[2018-08-21] MEDS: ENOXAPARIN INJ 40 MG/0.4 ML SYR SQ SCH (22:05)
[2018-08-22 05:39] LABS: Basophils # (auto) 0.01 K/uL (0-0.2); Basophils % (auto) 0.3 %; Eosinophils # (auto) 0.07 K/uL (0-0.5); Eosinophils % (auto) 2.3 %; Hematocrit (blood only) 23.5 % (42-52); Hemoglobin 7.4 g/dL (14.0-18.0); Immature Granulocytes # (auto) 0.04 K/uL (0.00-0.02); Immature Granulocytes % (auto) 1.3 %; Lymphocytes % (auto) 35.9 %; Mean Corpuscular Hgb Conc 31.5 g/dL (32-36); Mean Corpuscular Volume 81.6 fL (80-100); Mean Platelet Volume 8.9 fL (7.4-10.4); Monocytes # (auto) 0.63 K/uL (0.11-0.59); Monocytes % (auto) 20.6 %; Neutrophils # (auto) 1.21 K/uL (1.4-6.5); Neutrophils % (auto) 39.6 %; Platelet Count 164 K/uL (130-400); RDW Coefficient of Variation 20.9 % (11.5-14.5); RDW Standard Deviation 61.5 fL (36.4-46.3); Red Blood Count 2.88 M/uL (4.7-6.1); White Blood Count 3.06 K/uL (4.8-10.8)
[2018-08-22 05:59] LABS: Anisocytosis Present; Ovalocytes 1+
[2018-08-22 06:16] LABS: BUN Creatinine Ratio 15.2 (10-20); Calcium 7.4 mg/dl (8.5-10.1); Creatinine Clr Calc Pharmacy 105.8 ml/min; Est GFR (African American) 106.8; Est GFR (Non-African American) 92.1; Phosphorus 2.5 mg/dl (2.5-4.9)
[2018-08-22] MEDS: PREGABALIN 100 MG CAP PO SCH (08:30)
[2018-08-22] MEDS: PANTOprazole 40 MG TAB PO SCH (08:30)
[2018-08-22] MEDS: INSULIN ASPART 100 UNITS/ML 3 ML PEN SC SCH ×2 (08:32→12:47)
--- NOTE | 2018-08-22 14:21 | Discharge Summary ---
Date of Service August 22, 2018 Admission HPI Per Admitting Provider Mr. 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 Patient is s/p Whipple 08/05/15. He is presently receiving Paclitaxel, Gemcitabine chemotherapy and follows with Dr. Bev Braga from Oncology. Patient reports chronic diarrhea for years. Reports that over the last few days his diarrhea worsened - became green in color, foul smelling with mucus. He reports approximately 6 episodes per day of watery stool as well as night time episodes with incontinence. Stools are explosive at times. He denies abdominal pain or bloating. Denies fevers/chills or sweats. He reports poor appetite and decreased PO intake. Additionally patient is complaining of diffuse weakness, feeling that he "lost his power". He was seen in clinic today and had labs drawn - significant for hypokalemia, K=2.5. He was administered Magnesium x 2gm and Potassium x 40mEq and sent to [facility] for direct admission for continued repletion and monitoring. Patient is presently without additional complaints. Specifically denies fevers , chills, sweats, dizziness, presyncope, CP, palpitations, SOB, cough, wheeze, abdominal pain, dysuria, numbness/weakness or loss of balance. Principal Diagnosis 35 Discharge Data Allergies Allergy/AdvReac Type Severity Reaction Status Date / Time ezetimibe Allergy Unknown "JUST Verified 06/08/18 15:03 DIDN'T FEEL RIGHT" gabapentin Allergy Unknown "JUST Verified 06/08/18 15:03 DIDN'T FEEL RIGHT" Consultations 08/18/18 11:54 Consult Hematology Routine Hospital Course (1) Hypokalemia: (2) Diarrhea: (3) Diabetes: (4) GERD (gastroesophageal reflux disease): (5) HTN (hypertension): (6) Lymphoma: (7) H/O malignant neoplasm of pancreas: 78 yo male was admitted on August 18, 2018 because of diarrhea, dehydration,, stable/ improving history of multiple malignancies to include diffuse large B cell lymphoma initially diagnosed 09/24/14, 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 Patient is s/p Whipple 08/05/15. He is presently receiving Paclitaxel, Gemcitabine chemotherapy and follows with Dr. Moran from Oncology. chronic diarrhea diarrhea, generally has not improving, tolerate clear liquid diet, has been advanced to regular diet yesterday , tolerate clear liquid diet, So far stool culture Cdiff negative, Hypokalemia/hypophosphatemia/hypomagnesemia: Monitor electrolytes checked and replaced, continue monitoring Episodes of hypoglycemic blood glucose at 40, has hold insulin. Has told him not to resume before seen by PCP well-controlled diabetic was on Lantus 30u qHS, continue to hold Last AIC=5.9 on 06/09/18. Continue insulin sliding scale, hold Lantus this morning , following this afternoon blood glucose gastroesophageal reflux disease, continue Protonix 40mg po daily HTN, stable continue current medication, NHL presently on chemotherapy. Follows with Oncology H/O malignant neoplasm of pancreas, s/p Whipple. Oncology consult as above Ppx - Lovenox for DVT ppx, Protonix daily Full code, Increase activity, PT OT, Today want to out of bed to the chair, up and walk in the hallway, preparing going home tomorrow, Total Time Total Time Spent Total Time Spent (In Minutes): 35 min Total Time Includes: Examination of the Patient, Discharge Planning, Medication Reconciliation and Communication With Other Providers Discharge Plan Discharge Items Patient Disposition: Home - Self-Care Reason For Visit: HYPOKALEMIA, DIARRHEA Discharge Diagnosis: diarrhea secondary to colon stent, or chemotherapy Condition: Fair Discharge Goals: Decrease discomfort, Diagnostic testing, Improve disease control, Improve function and Increase independence Activity: Resume your previous activity Non-emergency contact: Primary Care Provider and Oncologist Call non-emergency contact if: you have any medication questions Follow-up/Referrals: Dwain Gutierrez III, CRNP [Family Provider] - 09/02/18 11:00 am (Please, follow up with Dwain MONIQUE on SaturdaySeptember 02 at 11:00 am. *If you need to change this appointment, call the office at [phone].) Diet: Carb Count or DM1 Addtl Provider Instructions: you have diarrhea secondary to colon stent or chemotherapy you have history of diffuse large B cell lymphoma and pancreatic adenocarcinoma , you need to follow up with Dr. Mclean or Dr. Moran in 1 week you was having Hypokalemia/hypophosphatemia/hypomagnesemia you was having low blood sugar , your Lantus is on hold you need to eat balance diet, potassium rich diet you need to follow up with your primary care physician in 1 week, labs of bmp, mg , phos in the follow up visit - take medication as instructed, never overdose or any misuse, or take with alcohol, because misuse of medicine may cause organ damage or , call me , or your primary care physician if have questions of discharge medicaitons. - call your primary care physician, or go to local emergency room if has any fever/chill, chest pain, shortness of breathing, nausea/vomiting/abdominal pain , facial droop/slurry speech/local weakness, or if has any questions. - fall precaution - diet as instructed - you need to follow up with your subspecialist, such as Dr. Mclean Prescriptions: New magnesium oxide 400 mg capsule 400 mg PO BID Qty: 10 RF: 0 potassium chloride 20 mEq tablet extended release 20 meq PO DAILY Qty: 10 RF: 0 calcium carbonate-vitamin D3 [Calcium 500 With D] 500 mg(1,250mg) -400 unit tablet 1 tab PO DAILY Qty: 30 RF: 0 Continue sucralfate [Carafate] 100 mg/mL Suspension 1 dose PO QAM RF: 0 pregabalin [Lyrica] 200 mg Capsule 200 mg PO BID RF: 0 omeprazole 20 mg Tablet,Delayed Release (Dr/Ec) 20 mg PO DAILY PRN (Reason: Indigestion) RF: 0 Discontinued insulin glargine [Lantus U-100 Insulin] 100 unit/mL Solution 30 unit SUBCUT HS RF: 0 Visit Report Forms: My [facility] Stand-Alone Forms: My [facility]/Other Patient Handouts: Diabetes Resources, Diabetes Keep Feet Healthy Discharge Orders: Discharge Order (Routine); Ordered 08/22/18 Ordered By: Bharath Guzman Admission Data Admit Date/Time: 08/18/18 10:50 Attending Provider: Bharath Guzman Admit Provider: Bibi Marie Primary Care Provider: PCP,NO Other Providers: Yessenia Fisher ; Jesse Moran ; Frank,Bibi M Service: Medical Other Interventions: Discharge Summary Assessment (RN) Last Done: 08/22/18 10:56 DC Date/Time DO NOT enter until pt leaves facility: 08/22/18 14:01
== END 2018-08-22 14:01 | disposition home or self-care (01) | DRG 393 ==
LOC: SUATTDRO 10:50 → 4E 10:50

== ENCOUNTER 2018-09-24 15:43 | Inpatient (IN) ==
[2018-09-24] MEDS ORDERED: ACETAMINOPHEN 325 MG TAB PO PRN (15:53)
[2018-09-24] MEDS ORDERED: POLYETHYLENE (MIRALAX) 17 GM PACK PO PRN (15:58)
--- NOTE | 2018-09-24 16:08 | History & Physical Report ---
Date of Service September 24, 2018 Assessment & Plan (1) Cancer: Failure to thrive in the setting of pancreatic cancer and lymphoma - Gentle hydration with NSS @ 80 ml/hr - Boost TID - cbc, prp am - consult heme/onc - discussed possible palliative consult, patient unsure he is interested in discussing goals at this time - PT/OT (2) Peripheral neuropathy: continue home Lyrica (3) Diabetes mellitus, type 2: Bsgs ac & hs SS (4) GERD (gastroesophageal reflux disease): Protonix daily (5) Anemia: secondary to lymphoma and chemotherapy - normocytic -hgb 8.8, appears to be around baseline - cbc am (6) Diarrhea: check C.diff and cultures, if negative, will order Imodium (7) Urinary incontinence: check urinalysis with reflex to micro and culture (8) DVT prophylaxis: Enoxaprin, SCDs History of Present Illness Primary Care Provider: Dwain Gutierrez III, TRANSMISSION WORKER Mr. Guerra has been undergoing chemo for pancreatic cancer. He was to have chemo on Saturday but was too weak to undergo it and so it has been postponed indefinitely. He has been weak and unable to control his bowels or bladder since his last admission in early August. He has been very weak. He denies any pain or more specific complaints. He presents for general failure to thrive in the setting of cancer. 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 Family medical history: non contributory Allergies Allergy/AdvReac Type Severity Reaction Status Date / Time ezetimibe Allergy Unknown "JUST Verified 06/08/18 15:03 DIDN'T FEEL RIGHT" gabapentin Allergy Unknown "JUST Verified 06/08/18 15:03 DIDN'T FEEL RIGHT" Home Medications Home Medications Medication Instructions Recorded Confirmed Type omeprazole 20 mg PO DAILY PRN 04/30/18 06/08/18 History pregabalin [Lyrica] 200 mg PO BID 04/30/18 06/08/18 History sucralfate [Carafate] 1 dose PO QAM 04/30/18 06/08/18 History calcium carbonate-vitamin D3 1 tab PO DAILY #30 tab 08/22/18 Rx [Calcium 500 With D 500 mg (1,250 mg)-400 unit tablet] magnesium oxide 400 mg PO BID #10 cap 08/22/18 Rx potassium chloride 20 meq PO DAILY #10 tab 08/22/18 Rx Past Med/Surg History Social History Current Living Situation: Spouse Feels Safe at Home: Yes Safety Concerns: Feels Safe At This Time Smoking Status: Never smoker Do You Dip or Chew Tobacco: No Second Hand Exposure: No Hx Alcohol Use: No Hx Substance Use: No Beliefs That Will Affect Care: None Preferred Language: Greenlandic Communication Ability: Effective Awning Hanger Supervisor Required: No Review of Systems All systems reviewed & are unremarkable except as noted in HPI & below Physical Exam 2 Physical Exam: General: no distress Eyes: normal inspection, PERLL Respiratory: chest non tender, clear to auscultation, normal breath sounds, no respiratory distress, no accessory muscle use Cardiac: regular rate and rhythm, no rub or gallop, no murmur, no edema, no jvd GI/: active bowel sounds, no abd pain or tenderness, soft, non distended Extremities: normal range of motion, normal strength, non tender Neuro:oriented x 3, moves all extremities Psych: alert, normal mood and affect Skin: pale, dry Code Status & VTE Plan Code Status full code Supervising Physician Co-Signing Physician Notes FISHER DIVER NET Physician Supervision Note: I discussed with Rosalinda Vieyra NP and agree with findings and plan as documented in the note. Any exceptions or clarifications are listed here: None Patient was independently seen and examined he is here because of increasing weakness that occurred after his recent chemotherapy. His weakness is mostly focused in his lower extremities although there is no pain associated with it or radicular type symptoms which is overall global weakness. Currently are pending a urinalysis and also testing of his chronic diarrhea for C. difficile. Vitals are stable He is awake alert and oriented his heart is regular without murmurs his abdomen is normoactive bowel sounds soft his extremities are weak he can barely lift against gravity there is absent reflexes at the patella but he has sensation intact Global decline in general weakness with a workup for metabolic sources, hydration due to presentation of clinical dehydration. Documented By: Celso Armendariz _ (1) Diarrhea Diarrhea type: unspecified type Qualified Code(s): R19.7 - Diarrhea, unspecified
[2018-09-24] MEDS ORDERED: PATIENT'S HEIGHT AND/OR WEIGHT NEEDED SCH (16:15)
[2018-09-24] MEDS: SODIUM CHLORIDE 0.9% 1000ML 1,000 ML IV SCH (17:47)
--- NOTE | 2018-09-24 18:57 | XRay Report ---
XR lumbar spine 2-3V CLINICAL HISTORY: leg weakness pain. Neuropathy. COMPARISON STUDY: 04/21/2015 FINDINGS: Considerable degenerative disc change throughout the entire lumbar region. Sclerosis and re active osteophytic change throughout the entire lumbar region. No evidence for compression deformity. No lytic or blastic process. No change from the prior exam. IMPRESSION: 1. Considerable degenerative disc change throughout the entire lumbar spine. 2. No acute process. 3. No change from the study of 2014 The above report was generated using voice recognition software. It may contain grammatical, syntax or spelling errors. Electronically signed by: Miko Joseph M.D. 09/24/2018 6:56 PM
[2018-09-24] MEDS ORDERED: ENOXAPARIN INJ 40 MG/0.4 ML SYR SQ SCH (20:00)
[2018-09-24] MEDS: PREGABALIN 100 MG CAP PO SCH (20:02)
[2018-09-24] MEDS: MAGNESIUM OXIDE 400 MG TAB PO SCH (20:02)
[2018-09-24] MEDS: INSULIN ASPART 100 UNITS/ML 3 ML PEN SC SCH (20:03)
[2018-09-25] MEDS: ONDANSETRON INJ 2 MG/ML 2 ML VIAL IV PRN ×2 (06:29→14:18)
[2018-09-25] MEDS: SODIUM CHLORIDE 0.9% 1000ML 1,000 ML IV SCH (06:35)
[2018-09-25 07:52] LABS: Hematocrit (blood only) 23.1 % (42-52); Hemoglobin 7.1 g/dL (14.0-18.0); Mean Corpuscular Hgb Conc 30.7 g/dL (32-36); Mean Corpuscular Volume 82.5 fL (80-100); Mean Platelet Volume 9.3 fL (7.4-10.4); Nucleated RBC # (auto) 0.03 K/uL (0-0); Nucleated RBC % (auto) 0.6 %; Platelet Count 145 K/uL (130-400); RDW Coefficient of Variation 20.1 % (11.5-14.5); RDW Standard Deviation 57.8 fL (36.4-46.3); White Blood Count 5.22 K/uL (4.8-10.8)
[2018-09-25] MEDS: PREGABALIN 100 MG CAP PO SCH ×2 (08:14→20:27)
[2018-09-25] MEDS: MAGNESIUM OXIDE 400 MG TAB PO SCH ×2 (08:16→20:27)
[2018-09-25 08:19] LABS: BUN Creatinine Ratio 21.5 (10-20); Calcium 7.1 mg/dl (8.5-10.1); Creatinine Clr Calc Pharmacy 94.8 ml/min; Est GFR (African American) 100.9; Est GFR (Non-African American) 87.1; Potassium 3.7 mmol/L (3.5-5.1)
[2018-09-25 08:43] LABS: Anisocytosis Present; Basophils # (auto) 0.02 K/uL (0-0.2); Basophils % (auto) 0.4 %; Eosinophils # (auto) 0.01 K/uL (0-0.5); Eosinophils % (auto) 0.2 %; Immature Granulocytes # (auto) 0.18 K/uL (0.00-0.02); Immature Granulocytes % (auto) 3.4 %; Lymphocytes # (auto) 1.33 K/uL (1.2-3.4); Lymphocytes % (auto) 25.5 %; Monocytes # (auto) 0.86 K/uL (0.11-0.59); Monocytes % (auto) 16.5 %; Neutrophils # (auto) 2.82 K/uL (1.4-6.5); Tear Drop Cells 1+; Toxic Granulation 1+; Toxic Vacuolation 1+
[2018-09-25] MEDS: INSULIN ASPART 100 UNITS/ML 3 ML PEN SC SCH ×3 (08:53→17:59)
[2018-09-25] MEDS ORDERED: POTASSIUM CHLORIDE 20 MEQ TABCR PO SCH (09:00)
[2018-09-25] MEDS ORDERED: PANTOprazole 40 MG TAB PO SCH (09:00)
[2018-09-25] MEDS ORDERED: SUCRALFATE 1 GM/10 ML UDC PO SCH (09:00)
[2018-09-25] MEDS ORDERED: CALCIUM 600MG + VIT D 400 IU TAB PO SCH (09:00)
[2018-09-25] MEDS ORDERED: PROMETHAZINE HCL 12.5 MG in SODIUM CHLORIDE 0.9% 50 ML IV PRN (10:01)
[2018-09-25] MEDS ORDERED: IOVERSOL 100ml IV PRN (13:34)
--- NOTE | 2018-09-25 13:52 | Hospitalist Progress Note ---
Date of Service September 25, 2018 Assessment & Plan (1) Cancer: Failure to thrive in the setting of pancreatic cancer and lymphoma - Gentle hydration with NSS @ 80 ml/hr - Boost TID - cbc, prp am - consult heme/onc - discussed possible palliative consult, patient unsure he is interested in discussing goals at this time - PT/OT (2) Peripheral neuropathy: continue home Lyrica (3) Diabetes mellitus, type 2: Bsgs ac & hs SS (4) GERD (gastroesophageal reflux disease): Protonix daily (5) Anemia: secondary to lymphoma and chemotherapy - normocytic -hgb 7.1 - will give 2 units - cbc am (6) Diarrhea: C.diff negative, stool cultures negative CT - patient unable to tolerate po contrast, will order with IV contrast Patient does have history of SBO with stenting May want to add bulking agent such as metamucil but will wait for CT results (7) Urinary incontinence: check urinalysis with reflex to micro and culture (8) DVT prophylaxis: Enoxaprin, SCDs Subjective Mr. Guerra continues to feel tired and weak. He is nauseas and not taking in much. He denies any pain Review of Systems All systems reviewed & are unremarkable except as noted in HPI & below Physical Exam 2 Vital Signs (Past 24 Hours): Last Vital Signs Temp 36.6 C 09/25/18 11:31 Pulse 74 09/25/18 11:31 Resp 18 09/25/18 11:31 BP 110/72 09/25/18 11:31 Pulse Ox 98 09/25/18 11:31 Physical Exam: General: no distress Eyes: normal inspection, PERLL Respiratory: chest non tender, clear to auscultation, normal breath sounds, no respiratory distress, no accessory muscle use Cardiac: regular rate and rhythm, no rub or gallop, no murmur, no edema, no jvd GI/: active bowel sounds, no abd pain or tenderness, soft, non distended Extremities: normal range of motion, normal strength, non tender Neuro/Psych: alert and oriented x 3, normal mood and affect Skin: normal pale, dry Results & Data Laboratory Results Abnormal lab results 09/24/18 09/25/18 09/25/18 Range/Units 19:49 07:35 07:39 RBC 2.80 L (4.7-6.1) M/uL Hgb 7.1 L (14.0-18.0) g/dL Hct 23.1 L (42-52) % MCHC 30.7 L (32-36) g/dL RDW Std Deviation 57.8 H (36.4-46.3) fL RDW Coeff of Hortencia 20.1 H (11.5-14.5) % Immature Gran # (Auto) 0.18 H (0.00-0.02) K/uL [place] # (Auto) 0.86 H (0.11-0.59) K/uL Absolute Nucleated RBC 0.03 H (0-0) K/uL BUN/Creatinine Ratio (10-20) Glucose (70-99) mg/dl POC Glucose 180 H 155 H (70-99) Calcium (8.5-10.1) mg/dl Crossmatch 09/25/18 09/25/18 09/25/18 Range/Units 07:39 11:43 12:58 RBC (4.7-6.1) M/uL Hgb (14.0-18.0) g/dL Hct (42-52) % MCHC (32-36) g/dL RDW Std Deviation (36.4-46.3) fL RDW Coeff of Hortencia (11.5-14.5) % Immature Gran # (Auto) (0.00-0.02) K/uL [place] # (Auto) (0.11-0.59) K/uL Absolute Nucleated RBC (0-0) K/uL BUN/Creatinine Ratio 21.5 H (10-20) Glucose 130 H (70-99) mg/dl POC Glucose 179 H (70-99) Calcium 7.1 L (8.5-10.1) mg/dl Crossmatch See Detail _ (1) Diarrhea Diarrhea type: unspecified type Qualified Code(s): R19.7 - Diarrhea, unspecified
--- NOTE | 2018-09-25 14:03 | CT Scan Report ---
CT abd pelvis IV con only CLINICAL HISTORY: 78 years-old Male presenting with diarrhea, metastatic cancer . TECHNIQUE: Multidetector CT of the abdomen and pelvis was performed after the administration of intra venous contrast. IV contrast: 94 mL of Optiray 320. One or more dose lowering techniques were used co nsistent with the principles of ALARA (as low as reasonably achievable), including automatic exposure control, mA or kV adjustment to individual patient size, and/or use of iterative reconstruction. COMPARISON: 06/08/2018. CT DOSE (mGy.cm): The estimated cumulative dose is 1185.82 mGycm. FINDINGS: Menagerie Caretaker topogram: Cholecystectomy clips and extensive pelvic surgical clips likely relating to prostate ctomy. Mild gaseous distention of bowel. Moderate left pleural effusion. Lung bases: Persistent rounded atelectasis of the left lower lobe in the setting of the moderate to l arge left pleural effusion. Persistent left pleural thickening. Minimal dependent atelectasis in the right lung base. A tip of a catheter is noted. Coronary artery calcification. Normal heart size. No p ericardial effusion. Liver: Macronodular contour of the liver. No focal lesion allowing for the single phase of contrast. Patent hepatic vasculature. Biliary: Pneumobilia as on prior exam. Postsurgical changes of hepaticojejunostomy. Gallbladder surgi salty absent. Pancreas: Postsurgical changes of resection of the pancreatic head and pancreaticojejunostomy. Modera te atrophy of the pancreatic parenchyma. Spleen: Normal. Adrenal glands: Nodular thickening of the medial limb of the left adrenal gland similar to prior. Rig ht adrenal gland normal. Kidneys and ureters: Normal. No hydronephrosis. Bladder: Circumferential wall thickening. The bladder contains intraluminal gas. The gas and debris c ontaining collection abuts the posterior bladder dome. Continuity of this collection with the bladder is suspected (series 3 image 424). Pelvic organs: Postsurgical changes of prostatectomy. Numerous surgical clips in place. Bowel: Stent noted in the lower rectum, which is displaced from the expected position. Significant ci rcumferential wall thickening of the mid to distal sigmoid colon to the upper rectum. Mesorectal fat infiltration and thickening of the mesorectal fascia. The collection likely is contiguous with the re ctosigmoid junction. Fluid noted in the more proximal colon, which is not pathologically distended. N o bowel obstruction. The appendix is grossly normal allowing for surrounding edema and fluid, which a re diffuse findings. Postsurgical changes of Whipple procedure with gastric antrectomy, duodenectomy, gastrojejunostomy, and distal enteroenteric anastomosis. Significant bowel wall thickening of the ga strojejunostomy with ulcer formation along the posterior wall (series 3 image 171). Associated surrou nding inflammatory change. Small bowel wall thickening of the pancreaticobiliary limb without patholo gic distention. Peritoneal cavity: Small volume of abdominopelvic ascites and extensive mesenteric infiltration. No f ree intraperitoneal gas. Extraluminal gas in the pelvic collection. Lymph nodes: Numerous scattered subcentimeter retroperitoneal lymph nodes. Vasculature: Atherosclerosis of the normal caliber abdominal aorta. IVC patent. Abdominal wall: Body wall edema. Gynecomastia. Musculoskeletal: Degenerative changes of the spine. No destructive osseous lesion. IMPRESSION: 1. Pelvic abscess with suspected fistulous connections to the rectosigmoid colon and bladder. 2. Displacement of the colonic stent, which is now in the lower rectum. Gastroenterology consultatio n recommended. 3. Circumferential wall thickening of the mid sigmoid colon to the upper rectum. Differential consid erations include underlying neoplasm, or infectious or inflammatory colitis. Postradiation change is another diagnostic consideration. 4. Postsurgical changes of prostatectomy. 5. Postsurgical changes of Whipple procedure. Interval development of a severe ulcer at the gastroje junostomy site. There is suspected perforation in this region with extensive surrounding inflammatory change. 6. Wall thickening of the pancreaticobiliary limb secondarily reactive to abdominopelvic inflammator y change elsewhere or indicate a superimposed enteritis. No obstruction. 7. Large loculated left pleural effusion with chronic left lung rounded atelectasis. 8. Possible underlying liver fibrosis/cirrhosis. The report will be called/faxed according to standard departmental protocol. Electronically signed by: Tom Graham M.D. 09/25/2018 2:02 PM
[2018-09-25] MEDS ORDERED: PIPERACILLIN/TAZOBACTAM 4.5 GM in DEXTROSE 5% 100 ML IV STA (14:35)
[2018-09-25] MEDS ORDERED: PIPERACILL/TAZOBAC CONSULT ACTIVE PRN (14:35)
[2018-09-25] MEDS ORDERED: GLUCOSE 40% GEL 15 GM TUBE PO PRN (14:40)
[2018-09-25] MEDS ORDERED: DEXTROSE 50% 50 ML SYRINGE IV PRN (14:40)
[2018-09-25] MEDS ORDERED: CARBOHYDRATES FOR HYPOGLYCEMIA PO PRN (14:40)
[2018-09-25] MEDS ORDERED: GLUCOSE 10 TABS/TUBE PO PRN (14:40)
[2018-09-25] MEDS ORDERED: GLUCAGON FOR INJ 1 MG VIAL IM PRN (14:40)
[2018-09-25] MEDS ORDERED: PIPERACILLIN/TAZOBACTAM 3.375 GM in DEXTROSE 5% 100 ML IV ONE (15:00)
--- NOTE | 2018-09-25 16:45 | Oncology Consultation ---
Date of Consultation September 25, 2018 Assessment & Plan (1) Pancreatic cancer: His CT shows a pelvic abscess with fistulae to the bowel and possibly the bladder. This is a devastating outcome. Consultation has been made with surgeons at [facility], where he had his original Whipple, and he will be transferred there for consideration of further management. I think that is reasonable, but I would caution that any decisions regarding surgery take into account both his deconditioned state and his multiple malignancies. His CA 19-9 has been falling since he started chemotherapy, but he has also has tolerated treatment very poorly. I worry not only about his tolerance of surgery and the recovery after, but also the delay in treatment that would result. I think it is lubin to meet with surgeons at [facility] to discuss this in more detail, but this may end up proving to be a reason to shift toward hospice care. Present on Admission?: Yes History of Present Illness Reason for Consultation: Metastatic pancreatic cancer Attending Physician: Celso Armendariz MD History of Present Illness Mr. Guerra is a 78 year old man with a history of multiple cancers. Briefly, he came to attention with extensive abdominal and retroperitoneal lymphadenopathy in early 2014. 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 He was treated with R-EPOCH and had a complete metabolic remission. During the workup for that cancer, he was found to have a small mass in the head of the pancreas. An EUS in Dec, 2014 discovered a pancreatic adenocarcinoma. His treatment was delayed until he completed chemo for his lymphoma. In July,, he had a Whipple procedure which revealed a T1 N0 moderately differentiated pancreatic adenocarcinoma with negative margins. He was treated with adjuvant gemcitabine through May,. He was found to have an enlarged right axillary lymph node in November,. 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 He had no other sites of disease, but given that this was a relapse of an element of his DLBCL, he was treated with bendamustine and rituxan. He received 4 cycles and again had a complete response. He was started on maintenance Rituxan subsequently. However, he has had persistently positive disease in the right axilla ever since and a scan in March demonstrated both growth and increased FDG-avidity in nodes there, again with no other sites of disease. He also had a steadily rising CA 19-9 starting in late 2016. The PET/CT from March did not reveal an obvious site of recurrent pancreatic cancer but did demonstrate some uptake in his rectum. Several attempts to schedule a colonoscopy were made, though they were unsuccessful for various reasons. He was admitted to [facility] 06/08/18 with a colonic obstruction. Flexible sigmoidoscopy 06/10 revealed a malignant stricture in his rectum (10-18 cm from the anal verge). A stent was placed, relieving the obstruction. Biopsies of the stricture revealed a metastatic carcinoma that had an immunophenotype consistent with pancreatic cancer. He started gemcitabine and Abraxane for stage IV pancreatic cancer on 07/07/18. Since that time, he has struggled with toxicities of treatment, particularly dehydration and diarrhea. His third dose of his third cycle was due on 09/22 but it was held due to worsening dehydration and fatigue. He came for a hydration visit yesterday and reported being unable to walk. We arranged for a direct admission. Since then, he's looked increasingly ill. He had a CT of his abdomen and pelvis earlier today that reveals a pelvic abscess with apparent fistulae to his rectum and bladder. There were also a number of other inflammatory-appearing changes. Allergies Allergy/AdvReac Type Severity Reaction Status Date / Time ezetimibe Allergy Unknown "JUST Verified 06/08/18 15:03 DIDN'T FEEL RIGHT" gabapentin Allergy Unknown "JUST Verified 06/08/18 15:03 DIDN'T FEEL RIGHT" Home Medications Home Medications Medication Instructions Recorded Confirmed Type omeprazole 20 mg PO DAILY PRN 04/30/18 06/08/18 History pregabalin [Lyrica] 200 mg PO BID 04/30/18 06/08/18 History sucralfate [Carafate] 1 dose PO QAM 04/30/18 06/08/18 History calcium carbonate-vitamin D3 1 tab PO DAILY #30 tab 08/22/18 Rx [Calcium 500 With D 500 mg (1,250 mg)-400 unit tablet] magnesium oxide 400 mg PO BID #10 cap 08/22/18 Rx potassium chloride 20 meq PO DAILY #10 tab 08/22/18 Rx Patient History Medical History Intractable pain (Acute 10/06/14) GERD (gastroesophageal reflux disease) (Chronic) HTN (hypertension) (Chronic) Non-occlusive coronary artery disease (Chronic) Febrile neutropenia (Resolved) Neutropenic fever (Acute) Diabetes (Chronic) NHL (non-Hodgkin's lymphoma) (Chronic 10/06/14) Pancreatic abnormality (Acute) IPMN (intraductal papillary mucinous neoplasm) (Chronic) Prostate cancer (Resolved) Diabetic gastroparesis (Chronic) Pancreatic cancer (Chronic) Obstructive jaundice (Chronic) Chemotherapy-induced neuropathy (Chronic) LBBB (left bundle branch block) (Chronic) [place] (acute kidney injury) (Chronic) Ascites (Chronic) Cirrhosis of liver (Chronic) Hypokalemia (Chronic) PVCs (premature ventricular contractions) (Chronic) Prolonged QT interval (Chronic) SBP (spontaneous bacterial peritonitis) (Chronic) Traumatic hematuria (Resolved) UTI (urinary tract infection) (Resolved) Iron deficiency anemia (Chronic) Hypotension (Resolved) Pancytopenia (Chronic) Neutropenia (Chronic) Back pain (Acute) Cholangitis (Chronic) Diarrhea Elevated lipase (Acute) Fever and chills (Acute) Hypokalemia (Acute) Lactic acidosis (Acute) Neutropenic fever (Acute) Right wrist pain (Acute) Sepsis (Acute) Wound drainage (Acute) Cancer PANCREATIC CANCER LYMPHOMA-CHEMO CURRENTLY (LAST 04/14/18) PROSTATE Diabetes mellitus, type 2 GERD (gastroesophageal reflux disease) Peripheral neuropathy Social History Current Living Situation: Spouse Feels Safe at Home: Yes Safety Concerns: Feels Safe At This Time Smoking Status: Never smoker Do You Dip or Chew Tobacco: No Second Hand Exposure: No Hx Alcohol Use: No Hx Substance Use: No Beliefs That Will Affect Care: None Communication Ability: Effective Review of Systems Constitutional: as per Subjective / HPI Eyes: no worsening vision Respiratory: no cough and no dyspnea Cardiovascular: no chest pain and no palpitations Gastrointestinal: as per Subjective / HPI Musculoskeletal: no back pain and no joint pain Integumentary: no rash and no bleeding lesions Neurologic: no localized weakness and no headache(s) Hematologic / Lymphatic: no easy bleeding and no night sweats Physical Exam 2 Vital Signs (Past 24 Hours): Last Vital Signs Temp 36.9 C 09/25/18 16:20 Pulse 79 09/25/18 16:20 Resp 18 09/25/18 16:20 BP 119/74 09/25/18 16:20 Pulse Ox 95 09/25/18 16:20 Constitutional: + ill appearing, + frail appearing and + lethargic Eyes: + anicteric sclerae and EOM intact bilaterally Respiratory: normal respiratory effort, lungs clear to auscultation Cardiovascular: RRR, no murmur, no edema Gastrointestinal (Abdomen): Inspection/Auscultation: + abdomen distended Percussion/Palpation: abdomen soft; abdomen nontender Lymphatic: no cervical or axillary lymphadenopathy Results & Data Laboratory Results Abnormal Labs 09/24/18 09/25/18 09/25/18 19:49 07:35 07:39 RBC 2.80 L Hgb 7.1 L Hct 23.1 L MCHC 30.7 L RDW Std Deviation 57.8 H RDW Coeff of Hortencia 20.1 H Immature Gran # (Auto) 0.18 H [place] # (Auto) 0.86 H Absolute Nucleated RBC 0.03 H BUN/Creatinine Ratio Glucose POC Glucose 180 H 155 H Calcium Crossmatch 09/25/18 09/25/18 09/25/18 07:39 11:43 12:58 RBC Hgb Hct MCHC RDW Std Deviation RDW Coeff of Hortencia Immature Gran # (Auto) [place] # (Auto) Absolute Nucleated RBC BUN/Creatinine Ratio 21.5 H Glucose 130 H POC Glucose 179 H Calcium 7.1 L Crossmatch See Detail Diagnostic Findings CT A/P, 09/25/18: IMPRESSION: 1. Pelvic abscess with suspected fistulous connections to the rectosigmoid colon and bladder. 2. Displacement of the colonic stent, which is now in the lower rectum. Gastroenterology consultation recommended. 3. Circumferential wall thickening of the mid sigmoid colon to the upper rectum. Differential considerations include underlying neoplasm, or infectious or inflammatory colitis. Postradiation change is another diagnostic consideration. 4. Postsurgical changes of prostatectomy. 5. Postsurgical changes of Whipple procedure. Interval development of a severe ulcer at the gastrojejunostomy site. There is suspected perforation in this region with extensive surrounding inflammatory change. 6. Wall thickening of the pancreaticobiliary limb secondarily reactive to abdominopelvic inflammatory change elsewhere or indicate a superimposed enteritis. No obstruction. 7. Large loculated left pleural effusion with chronic left lung rounded atelectasis. 8. Possible underlying liver fibrosis/cirrhosis. _ (1) Pancreatic cancer Pancreatic malignancy location: head of pancreas Qualified Code(s): C25.0 - Malignant neoplasm of head of pancreas
--- NOTE | 2018-09-25 17:20 | XRay Report ---
XR KUB CLINICAL HISTORY: NG tube placement tube position COMPARISON STUDY: No previous studies for comparison. FINDINGS: Nasogastric tube placed within the mid stomach. Mild nonobstructive ileus. Contrast within the urinary tracts. Stent within the rectum. IMPRESSION: Nasogastric tube placed in the mid stomach. The above report was generated using voice recognition software. It may contain grammatical, syntax or spelling errors. Electronically signed by: Miko Joseph M.D. 09/25/2018 5:19 PM
[2018-09-25] MEDS: PANCREAZE (LIPASE 10,500U) CAP PO SCH ×2 (18:05→20:27)
--- NOTE | 2018-09-25 18:40 | Discharge Summary ---
Date of Service September 25, 2018 Admission HPI Per Admitting Provider Mr. Guerra has been undergoing chemo for pancreatic cancer. He was to have chemo on Saturday but was too weak to undergo it and so it has been postponed indefinitely. He was receiving Paclitaxel, Gemcitabine chemotherapy and follows with Dr. Moran from Oncology. He has been weak and unable to control his bowels or bladder since his last admission in early August. He denies any pain or more specific complaints. He presents for general failure to thrive in the setting of cancer. 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 Family medical history: non contributory Principal Diagnosis Pelvic abscess Discharge Exam Constitutional + ill appearing Respiratory normal respiratory effort, lungs clear to auscultation Cardiovascular RRR, no murmur, no edema Gastrointestinal (Abdomen) mild distention, no abdominal tenderness to palpation Musculoskeletal generalized weakness Skin no rashes, warm and dry + pallor Neurologic moves all extremities and awake Psychiatric A+Ox3, euthymic affect Discharge Data Allergies Allergy/AdvReac Type Severity Reaction Status Date / Time ezetimibe Allergy Unknown "JUST Verified 06/08/18 15:03 DIDN'T FEEL RIGHT" gabapentin Allergy Unknown "JUST Verified 06/08/18 15:03 DIDN'T FEEL RIGHT" Consultations 09/24/18 15:53 Consult Hematology Routine 09/24/18 15:58 Consult Case Management - Discharge Planning Routine 09/25/18 15:51 Burn CD for patient Routine Ordered Studies 09/25/18 11:45 CT abd pelvis IV con only Routine Hospital Course (1) Pelvic abscess: CT with contrast of abdomen performed due to ongoing diarrhea and showed: IMPRESSION: 1. Pelvic abscess with suspected fistulous connections to the rectosigmoid colon and bladder. 2. Displacement of the colonic stent, which is now in the lower rectum. 3. Circumferential wall thickening of the mid sigmoid colon to the upper rectum. Differential considerations include underlying neoplasm, or infectious or inflammatory colitis. Postradiation change is another diagnostic consideration. 4. Postsurgical changes of prostatectomy. 5. Postsurgical changes of Whipple procedure. Interval development of a severe ulcer at the gastrojejunostomy site. There is suspected perforation in this region with extensive surrounding inflammatory change. 6. Wall thickening of the pancreaticobiliary limb secondarily reactive to abdominopelvic inflammatory change elsewhere or indicate a superimposed enteritis. No obstruction. 7. Large loculated left pleural effusion with chronic left lung rounded atelectasis. 8. Possible underlying liver fibrosis/cirrhosis. Patient will be transferred to [facility]. NG placed per Dr. Son at [facility]'s request. Patient's vital signs have been stable, he has been nauseas today but otherwise did not have any abdominal pain or new complaints. (2) Cancer: Failure to thrive in the setting of pancreatic cancer and lymphoma - Gentle hydration with NSS @ 80 ml/hr provided - Boost TID - consulted heme/onc - discussed possible palliative consult, patient unsure he is interested in discussing goals at this time - PT/OT ordered but patient not feeling well enough for participation today (3) Diarrhea: C.diff negative, stool cultures pending CT as above (4) Anemia: secondary to lymphoma and chemotherapy - normocytic -hgb 7.1 - given 1 unit before transfer (5) Peripheral neuropathy: continue home Lyrica (6) Diabetes mellitus, type 2: Bsgs ac & hs SS (7) GERD (gastroesophageal reflux disease): Protonix daily (8) Urinary incontinence: check urinalysis with reflex to micro and culture - pending at time of transfer (9) DVT prophylaxis: Enoxaprin, SCDs Total Time Total Time Spent Total Time Spent (In Minutes): greater than 30 minutes Discharge Plan Discharge Items Patient Disposition: Transfer Acute Care Hospital Reason For Visit: FAILURE TO THRIVE Discharge Diagnosis: Pelvic abscess Discharge Goals: Diagnostic testing and Improve disease control Activity: As commented below Activity Comment: per dc instructions from [facility] Non-emergency contact: Primary Care Provider Call non-emergency contact if: you have a fever Follow-up/Referrals: Dwain Gutierrez III, CRNP [Primary Care Provider] - Diet: Carb Consistent or DM2 Addtl Provider Instructions: . Prescriptions: New [id number] [Pancreaze] 10,500-35,500- 61,500 unit Capsule, Delayed Release(Dr/Ec) 1 cap PO QID 30 Days Qty: 120 RF: 0 Continue sucralfate [Carafate] 100 mg/mL Suspension 1 dose PO QAM RF: 0 pregabalin [Lyrica] 200 mg Capsule 200 mg PO BID RF: 0 omeprazole 20 mg Tablet,Delayed Release (Dr/Ec) 20 mg PO DAILY PRN (Reason: Indigestion) RF: 0 magnesium oxide 400 mg capsule 400 mg PO BID Qty: 10 RF: 0 potassium chloride 20 mEq tablet extended release 20 meq PO DAILY Qty: 10 RF: 0 calcium carbonate-vitamin D3 [Calcium 500 With D] 500 mg(1,250mg) -400 unit tablet 1 tab PO DAILY Qty: 30 RF: 0 Stand-Alone Forms: [facility] Discharge Orders: Discharge Order (Routine); Ordered 09/25/18 Ordered By: Rosalinda Vieyra Admission Data Admit Date/Time: 09/24/18 15:46 Attending Provider: Celso Armendariz Admit Provider: Reji Arvizu Primary Care Provider: Dwain Gutierrez III Other Providers: Jesse Moran ; Reji Arvizu Service: Medical
[2018-09-25] MEDS ORDERED: ACETAMINOPHEN 65 ML IV ONE (19:15)
[2018-09-25] MEDS ORDERED: PIPERACILLIN/TAZOBACTAM 3.375 GM in DEXTROSE 5% 100 ML IV SCH (20:00)
[2018-09-25] MEDS ORDERED: Nursing to Pharmacy Communication ONE (21:34)
[2018-09-26] MEDS ORDERED: INSULIN ASPART 100 UNITS/ML 3 ML PEN SC SCH
== END 2018-09-26 00:30 | disposition short-term general hospital (02) | DRG 640 ==
LOC: 4E 15:46 → SUATTDRO 15:46

== ENCOUNTER 2018-10-05 19:16 | Inpatient (IN) ==
[2018-10-05] MEDS ORDERED: ONDANSETRON INJ 2 MG/ML 2 ML VIAL IV STA ×2 (19:31→21:11)
[2018-10-05] MEDS ORDERED: HYDROmorphone INJ 0.5 MG/0.5 ML SYR IV STA (19:31)
[2018-10-05] MEDS ORDERED: SODIUM CHLORIDE 0.9% 1000ML 2,000 ML IV SCH (19:45)
[2018-10-05 19:55] LABS: Basophils # (auto) 0.01 K/uL (0-0.2); Basophils % (auto) 0.1 %; Eosinophils # (auto) 0.02 K/uL (0-0.5); Eosinophils % (auto) 0.2 %; Hematocrit (blood only) 33.3 % (42-52); Hemoglobin 10.5 g/dL (14.0-18.0); Immature Granulocytes # (auto) 0.25 K/uL (0.00-0.02); Immature Granulocytes % (auto) 1.9 %; Lymphocytes # (auto) 2.64 K/uL (1.2-3.4); Lymphocytes % (auto) 20.3 %; Mean Corpuscular Hgb Conc 31.5 g/dL (32-36); Mean Corpuscular Volume 84.7 fL (80-100); Mean Platelet Volume 9.3 fL (7.4-10.4); Monocytes # (auto) 1.07 K/uL (0.11-0.59); Monocytes % (auto) 8.2 %; Neutrophils # (auto) 9.04 K/uL (1.4-6.5); Neutrophils % (auto) 69.3 %; Platelet Count 211 K/uL (130-400); RDW Coefficient of Variation 19.1 % (11.5-14.5); RDW Standard Deviation 58.7 fL (36.4-46.3); Red Blood Count 3.93 M/uL (4.7-6.1); White Blood Count 13.03 K/uL (4.8-10.8)
[2018-10-05 20:12] LABS: Albumin Level 1.6 gm/dl (3.4-5.0); BUN Creatinine Ratio 35.8 (10-20); Calcium 7.3 mg/dl (8.5-10.1); Est GFR (African American) 112.4; Potassium 3.3 mmol/L (3.5-5.1)
[2018-10-05 20:15] LABS: Albumin Globulin Ratio 0.5 (0.9-2); Bilirubin,Total 0.4 mg/dl (0.2-1); Globulin 3.1 gm/dl (2.5-4.0); Total Protein 4.7 gm/dl (6.4-8.2)
[2018-10-05] MEDS ORDERED: IOVERSOL 100ml IV PRN (20:37)
--- NOTE | 2018-10-05 21:04 | CT Scan Report ---
CT abd pelvis IV con only CLINICAL HISTORY: General is abdominal pain COMPARISON STUDY: 09/25/2018 TECHNIQUE: The patient was scanned in a dynamic helical fashion during intravenous administration of 90 cc of Optiray 320. A dose lowering technique was utilized adhering to the principles of ALARA. CT DOSE: 568.84 mGy.cm FINDINGS: Lower chest: There is a persistent left pleural effusion with associated left lower lobe atelectasis/ consolidation. Liver: The liver has a cirrhotic morphology. No focal hepatic masses are visualized. There is pneumob mic. Gallbladder: Surgically absent. Spleen: The spleen is mildly enlarged measuring 14 cm. Pancreas: The pancreas is atrophic. No focal masses are visualized. The patient is status post a panc reatic head resection. Adrenal glands: Unremarkable. Kidneys: There is symmetric renal cortical enhancement. The kidneys are normal in size without hydron ephrosis. Bowel: There are postsurgical changes of a choledochojejunostomy. There are no transition zones indic ate bowel obstruction. There is mild diffuse colonic wall thickening nonspecific finding which could be secondary to an enteritis or secondary to the patient's presumed cirrhosis. There is no acute dive rticulitis. There are no findings to indicate acute appendicitis. There is interval decrease in the s ize of the perigastric abscess. 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 Peritoneum: There is increasing low volume ascites. No free intraperitoneal air is visualized Vasculature: The abdominal aorta is normal in course and caliber. Adenopathy: None. Pelvic viscera: There are surgical clips in the pelvis, likely secondary to a prior prostatectomy. Th ere is a fluid and gas collection which appears to abut the bladder. This appears smaller than the pr ior study, and likely represents interval decrease in the size of the previously described abscess. Skeletal structures: Postsurgical changes are present within the spine. No destructive lesions are vi sualized. IMPRESSION: 1. Persistent left pleural effusion and presumed left lower lobe rounded atelectatic changes 2. Cirrhotic morphology of the liver. Mild splenomegaly 3. Postsurgical pneumobilia 4. Postsurgical changes of a pancreatic head resection and choledochojejunostomy 5. Increasing low volume ascites 6. Suspected interval decrease in the size of the pelvic abscess abutting the bladder. A fistula to t he bladder and sigmoid must be considered. 7. Evidence for prior prostatectomy 8. Diffuse colonic wall thickening. The findings could be secondary to an enteritis or secondary to c irrhosis. 9. Interval decrease in the size of the perigastric abscess. 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 Electronically signed by: Howard White M.D. 10/05/2018 9:01 PM
[2018-10-05] MEDS ORDERED: HYDROmorphone INJ 1 MG/ML SYRINGE IV STA (21:11)
[2018-10-05] MEDS ORDERED: METOCLOPRAMIDE HCL INJ 5 MG/ML 2 ML VIAL IV STA (22:01)
[2018-10-05] MEDS ORDERED: PROMETHAZINE HCL 25 MG in SODIUM CHLORIDE 0.9% 50 ML IV STA (23:48)
--- NOTE | 2018-10-05 23:49 | History & Physical Report ---
Date of Service October 05, 2018 Assessment & Plan (1) Abdominal pain: Patient with 2-3 days of lower abdominal pain, burning in nature. He states that he is passing gas and liquid stools. CT Abdomen performed with no obstruction, stable findings from previous study. Post-surgical changes. He does have decrease in the size of the pelvic abscess abutting the bladder. Fistula to the bladder and sigmoid again considered. ?enteritis with diffuse colonic wall thickening. Unclear etiology of abdominal pain. As patient describes transient distention would be concerned for possible obstruction. His colonic stent was removed at [facility]. His abdomen is presently not distended, +BS. -Zofran PRN -Reglan PRN -Morphine PRN -Tylenol PRN -Palliative Care consult - appreciate assistance with this case (2) Pancreatic cancer: Patient is presently not on chemotherapy. He has decided to pursue home hospice services. Hospice is to come to the home on Saturday. -Palliative Consult inpatient - appreciate assistance -Case management consult -Consider Oncology consultation (3) Diabetes: Blood sugar well controlled at present, 132. Patient is not eating much. Has history of gastroparesis -ISS -CC diet -Reglan as above -Continue Lyrica -Check EKG - patient with history of prolonged QT (4) HTN (hypertension): Blood pressure fairly well controlled at present -Continue to monitor (5) GERD (gastroesophageal reflux disease): Stable at present -Will give Protonix 40mg IV daily -Sucralfate daily (6) Hypokalemia: K-3.3 at present -LR at 80mL/hr with 30mEq K -Repeat chemistry in AM F/E/N- LR at 80mL/hr with K 30mEq, check Mg level and replete IV as needed, CC full liquid diet as tolerated, Boost supplements, consider Megace for appetite stimulation Ppx - Lovenox, Protonix as above Code - DNR Dispo - Admit to medical floor History of Present Illness Chief Complaint: abdominal pain Primary Care Provider: Dwain Gutierrez, KEVIN, KAYDEN Mr. Guerra is an unfortunate 78yo male with history of multiple malignancies. 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 Diagnosed with pancreatic adenocarcinoma in December 2014 s/p Whipple in July 2015 with adjuvant gemcitabine. 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 A stent was placed. Biopsies consistent wtih metastatic pancreatic cancer. He was treated with gemcitabine and Abraxane but has been having difficulties tolerating treatment secondary to dehydration and diarrhea. Patient was recently admitted to [facility] 09/24/18 with failure to thrive and weakness. 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 He was subsequently transferred to [facility] for possible surgical intervention. While at [facility] he had his bowel stent removed. No further surgical intervention was pursued. He was discharged to home 8 days ago. Since then he has been doing fairly well, although he has been weak and not eating. He had some mild abdominal bloating but that has resolved. He is passing stools but describes them more as a "thick slime" which is relatively unchanged for the last few months. He denies fevers/chills/nausea/vomiting/CP/sob. He presents today with 2-3 days of abdominal discomfort. He describes it as bandlike burning and discomfort across the lower portion of his abdomen. He first experienced this discomfort after his Whipple. As above, he has not been eating much. He will occasionally drink Boost or Ensure but states that his appetite is quite poor. He developed nausea in the ER after receiving Dilaudid with multiple episodes of small volume vomiting. Patient is presently not undergoing chemotherapy. He has decided to stop chemo and pursue home hospice services. Hospice was scheduled to come to their home on Saturday. ER Course: Dilaudid, Reglan, Zofran, NSS x 2 liters Allergies Allergy/AdvReac Type Severity Reaction Status Date / Time ezetimibe Allergy Intermediate "JUST Verified 10/05/18 20:05 DIDN'T FEEL RIGHT" gabapentin Allergy Intermediate "JUST Verified 10/05/18 20:05 DIDN'T FEEL RIGHT" Home Medications Home Medications Medication Instructions Recorded Confirmed Type omeprazole 20 mg PO DAILY PRN 04/30/18 10/05/18 History calcium carbonate-vitamin D3 1 tab PO DAILY #30 tab 08/22/18 10/05/18 Rx [Calcium 500 With D] magnesium oxide 400 mg PO BID #10 cap 08/22/18 10/05/18 Rx insulin glargine [Lantus U-100 0 unit SUBCUT HS PRN 10/05/18 10/05/18 History Insulin] potassium chloride 20 meq PO DAILY PRN 10/05/18 10/05/18 History pregabalin [Lyrica] 225 mg PO BID 10/05/18 10/05/18 History sucralfate [Carafate] 1 g PO QDB 10/05/18 10/05/18 History Past Med/Surg History Social History Current Living Situation: Spouse Feels Safe at Home: Yes Smoking Status: Never smoker Second Hand Exposure: No Hx Alcohol Use: No Hx Substance Use: No Beliefs That Will Affect Care: None Preferred Language: Beninese Review of Systems All systems reviewed & are unremarkable except as noted in HPI & below Physical Exam 2 Vital Signs (Past 24 Hours): Last Vital Signs Temp 36.6 C 10/05/18 19:17 Pulse 70 10/05/18 23:31 Resp 13 10/05/18 22:31 BP 123/80 10/05/18 23:31 Pulse Ox 92 10/05/18 23:31 Physical Exam: General: patient resting comfortably, NAD, chronically ill in appearance, non-toxic Skin: warm, dry, intact, no rashes or lesions HEENT: NC/AT, PERRL, EOMI, anicteric sclera, conjunctiva without injection, external ear normal to inspection and nontender, nares patent, moist mucus membranes, poor dentition, no oropharyngeal lesions, neck supple, trachea midline, no LAD, no thyromegaly, no JVD Heart: +S1/S2, regular, no m/r/g Lungs: equal air entry bilaterally, no rales/rhonchi/wheezes Abd: Diminished bowel sounds, soft, non-distended, diffusely tender in lower abdomen, no rebound/guarding/peritoneal signs Ext: warm, 2+ pulses in UE/LE bilaterally, no clubbing/cyanosis, 1+ pitting edema of bilateral LE Neuro: nonfocal, patient AA&O x 4, speech intact, no facial droop, moving all extremities on command with equal strength 5/5 Results & Data Laboratory Results Lab Results 10/05/18 10/05/18 Range/Units 19:40 19:40 WBC 13.03 H (4.8-10.8) K/uL RBC 3.93 L (4.7-6.1) M/uL Hgb 10.5 L (14.0-18.0) g/dL Hct 33.3 L (42-52) % MCV 84.7 (80-100) fL MCH 26.7 (25-34) pg MCHC 31.5 L (32-36) g/dL RDW Std Deviation 58.7 H (36.4-46.3) fL RDW Coeff of Hortencia 19.1 H (11.5-14.5) % Plt Count 211 (130-400) K/uL MPV 9.3 (7.4-10.4) fL Immature Gran % (Auto) 1.9 % Neut % (Auto) 69.3 % Lymph % (Auto) 20.3 % [place] % (Auto) 8.2 % Eos % (Auto) 0.2 % Baso % (Auto) 0.1 % Immature Gran # (Auto) 0.25 H (0.00-0.02) K/uL Neut # (Auto) 9.04 H (1.4-6.5) K/uL Lymph # (Auto) 2.64 (1.2-3.4) K/uL [place] # (Auto) 1.07 H (0.11-0.59) K/uL Eos # (Auto) 0.02 (0-0.5) K/uL Baso # (Auto) 0.01 (0-0.2) K/uL Sodium 140 (136-145) mmol/L Potassium 3.3 L (3.5-5.1) mmol/L Chloride 109 H (98-107) mmol/L Carbon Dioxide 22 (21-32) mmol/L Anion Gap 10.0 (3-11) BUN 22 H (7-18) mg/dl Creatinine 0.60 (0.6-1.4) mg/dl Est Cr Clr Drug Dosing 121.0 ml/min Est GFR ( Amer) 112.4 Est GFR (Non-Af Amer) 97.0 BUN/Creatinine Ratio 35.8 H (10-20) Glucose 132 H (70-99) mg/dl Calcium 7.3 L (8.5-10.1) mg/dl Total Bilirubin 0.4 (0.2-1) mg/dl AST 17 (15-37) U/L ALT 11 L (12-78) U/L Alkaline Phosphatase 140 H (45-117) U/L Total Protein 4.7 L (6.4-8.2) gm/dl Albumin 1.6 L (3.4-5.0) gm/dl Globulin 3.1 (2.5-4.0) gm/dl Albumin/Globulin Ratio 0.5 L (0.9-2) Lipase 35 L (73-393) U/L Diagnostic Findings CT abd pelvis IV con only CLINICAL HISTORY: General is abdominal pain COMPARISON STUDY: 09/25/2018 TECHNIQUE: The patient was scanned in a dynamic helical fashion during intravenous administration of 90 cc of Optiray 320. A dose lowering technique was utilized adhering to the principles of ALARA. CT DOSE: 568.84 mGy.cm FINDINGS: Lower chest: There is a persistent left pleural effusion with associated left lower lobe atelectasis/consolidation. Liver: The liver has a cirrhotic morphology. No focal hepatic masses are visualized. There is pneumobilia. Gallbladder: Surgically absent. Spleen: The spleen is mildly enlarged measuring 14 cm. Pancreas: The pancreas is atrophic. No focal masses are visualized. The patient is status post a pancreatic head resection. Adrenal glands: Unremarkable. Kidneys: There is symmetric renal cortical enhancement. The kidneys are normal in size without hydronephrosis. Bowel: There are postsurgical changes of a choledochojejunostomy. There are no transition zones indicate bowel obstruction. There is mild diffuse colonic wall thickening nonspecific finding which could be secondary to an enteritis or secondary to the patient's presumed cirrhosis. There is no acute diverticulitis. There are no findings to indicate acute appendicitis. There is interval decrease in the size of the perigastric abscess. 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 Peritoneum: There is increasing low volume ascites. No free intraperitoneal air is visualized Vasculature: The abdominal aorta is normal in course and caliber. Adenopathy: None. Pelvic viscera: There are surgical clips in the pelvis, likely secondary to a prior prostatectomy. There is a fluid and gas collection which appears to abut the bladder. This appears smaller than the prior study, and likely represents interval decrease in the size of the previously described abscess. Skeletal structures: Postsurgical changes are present within the spine. No destructive lesions are visualized. IMPRESSION: 1. Persistent left pleural effusion and presumed left lower lobe rounded atelectatic changes 2. Cirrhotic morphology of the liver. Mild splenomegaly 3. Postsurgical pneumobilia 4. Postsurgical changes of a pancreatic head resection and choledochojejunostomy 5. Increasing low volume ascites 6. Suspected interval decrease in the size of the pelvic abscess abutting the bladder. A fistula to the bladder and sigmoid must be considered. 7. Evidence for prior prostatectomy 8. Diffuse colonic wall thickening. The findings could be secondary to an enteritis or secondary to cirrhosis. 9. Interval decrease in the size of the perigastric abscess. 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 Electronically signed by: Howard White M.D. 10/05/2018 9:01 PM Dictated: 10/05/[id number] Transcribed: 10/05/182047 Code Status & VTE Plan Code Status DNR per discussion with patient and family VTE Prophylaxis Plan VTE Prophylaxis will be ordered: Yes Critical Care Time Critical Care Time: No _ (1) Pancreatic cancer Pancreatic malignancy location: head of pancreas Qualified Code(s): C25.0 - Malignant neoplasm of head of pancreas (2) Diabetes Diabetes mellitus type: type 2 Diabetes mellitus terminal manager insulin use: with terminal manager use Diabetes mellitus complication status: without complication Diabetes mellitus complication detail: Diabetic retinopathy severity: Proliferative retinopathy type: Diabetes mellitus macular edema: Laterality : Chronic kidney disease stage: Qualified Code(s): E11.9 - Type 2 diabetes mellitus without complications; Z79.4 - alf (current) use of insulin (3) HTN (hypertension) Hypertension type: essential hypertension Qualified Code(s): I10 - Essential (primary) hypertension (4) GERD (gastroesophageal reflux disease) Esophagitis presence: esophagitis presence not specified Qualified Code(s): K21.9 - Gastro-esophageal reflux disease without esophagitis (5) Abdominal pain Abdominal location: lower abdomen, unspecified Qualified Code(s): R10.30 - Lower abdominal pain, unspecified
[2018-10-05] MEDS ORDERED: PROMETHAZINE 25 MG/51 ML NSS IV ONE (23:54)
--- NOTE | 2018-10-06 01:02 | Emergency Department Note ---
Entered by Titus Short acting as a scribe for Apolinar Lopez DO History of Present Illness General Chief complaint: Abdominal Pain Stated complaint: cancer-will explain Source: patient and family History of Present Illness Provider complaint: Abdominal Pain Onset (ago): hour(s) Location: abdomen Severity: severe Pain Consistency: + constant Maximum Pain Intensity: 9 Quality: + constant Relieved By: + none Associated symptoms: + denies other symptoms (pain with urination) Treatments prior to arrival: NSAID (Tylenol) The patient is a 78 year old male who presents to the Emergency Room with complaints of abdominal pain beginning a few days ago. Per the patient's family , the patient has had cramping in his stomach. They add that the patient has pancreatic cancer and has recently undergone chemotherapy, but they had to stop because the patient became too weak. Additionally, they add that Hospice will be coming to the patient's house in 2 days The patient reports that he has a burning sensation in his abdomen that started 3 days ago. The patient rates his pain as a 9/10. He adds that he takes Tylenol for this pain. The patient notes that his cancer doctor has stopped treating his cancer. The patient adds that he "cannot take this pain at home" The patient denies pain with urination. Home Medications Home Medications Medication Instructions Recorded Confirmed Type omeprazole 20 mg PO DAILY PRN 04/30/18 10/05/18 History calcium carbonate-vitamin D3 1 tab PO DAILY #30 tab 08/22/18 10/05/18 Rx [Calcium 500 With D] magnesium oxide 400 mg PO BID #10 cap 08/22/18 10/05/18 Rx insulin glargine [Lantus U-100 0 unit SUBCUT HS PRN 10/05/18 10/05/18 History Insulin] potassium chloride 20 meq PO DAILY PRN 10/05/18 10/05/18 History pregabalin [Lyrica] 225 mg PO BID 10/05/18 10/05/18 History sucralfate [Carafate] 1 g PO QDB 10/05/18 10/05/18 History Allergies Allergy/AdvReac Type Severity Reaction Status Date / Time ezetimibe Allergy Intermediate "JUST Verified 10/05/18 20:05 DIDN'T FEEL RIGHT" gabapentin Allergy Intermediate "JUST Verified 10/05/18 20:05 DIDN'T FEEL RIGHT" Past Med/Surg History Medical History Intractable pain (Acute 10/06/14) GERD (gastroesophageal reflux disease) (Chronic) HTN (hypertension) (Chronic) Non-occlusive coronary artery disease (Chronic) Febrile neutropenia (Resolved) Neutropenic fever (Acute) Diabetes (Chronic) NHL (non-Hodgkin's lymphoma) (Chronic 10/06/14) Pancreatic abnormality (Acute) IPMN (intraductal papillary mucinous neoplasm) (Chronic) Prostate cancer (Resolved) Diabetic gastroparesis (Chronic) Pancreatic cancer (Chronic) Obstructive jaundice (Chronic) Chemotherapy-induced neuropathy (Chronic) LBBB (left bundle branch block) (Chronic) [place] (acute kidney injury) (Chronic) Ascites (Chronic) Cirrhosis of liver (Chronic) Hypokalemia (Chronic) PVCs (premature ventricular contractions) (Chronic) Prolonged QT interval (Chronic) SBP (spontaneous bacterial peritonitis) (Chronic) Traumatic hematuria (Resolved) UTI (urinary tract infection) (Resolved) Iron deficiency anemia (Chronic) Hypotension (Resolved) Pancytopenia (Chronic) Neutropenia (Chronic) Back pain (Acute) Cholangitis (Chronic) Diarrhea Elevated lipase (Acute) Fever and chills (Acute) Hypokalemia (Acute) Lactic acidosis (Acute) Neutropenic fever (Acute) Right wrist pain (Acute) Sepsis (Acute) Wound drainage (Acute) Cancer PANCREATIC CANCER LYMPHOMA-CHEMO CURRENTLY (LAST 04/14/18) PROSTATE Diabetes mellitus, type 2 GERD (gastroesophageal reflux disease) Peripheral neuropathy Surgical History History of cardiac cath 5 YEARS AGO/NO STENTS History of cataract surgery History of colonoscopy History of pancreatic surgery Whipple procedure History of prostatectomy History of tooth extraction Family History Mother Family history of diabetes mellitus Social History Current Living Situation: Spouse Feels Safe at Home: Yes Smoking Status: Never smoker Second Hand Exposure: No Hx Alcohol Use: No Hx Substance Use: No Beliefs That Will Affect Care: None Preferred Language: Bulgarian Review of Systems See HPI for pertinent positives & negatives. and A total of 10 systems reviewed and were otherwise negative Physical Exam Vital Signs Vital Signs - 24 hr 10/05/18 19:17 10/05/18 20:22 10/05/18 21:16 Temperature 36.6 C Temperature Source Oral Sepsis Action Taken by Nursing No Action Required Pulse Rate 99 H 70 Pulse Rate [Finger] 80 Respiratory Rate 20 20 13 Respiratory Effort / Characteristics Non-Labored Respiratory Depth Normal Blood Pressure 141/84 H Blood Pressure [Right Arm] 123/73 Blood Pressure Mean 103 Blood Pressure Mean [Right Arm] 89 Pulse Oximetry 97 96 Oxygen Delivery Method Room Air Room Air 10/05/18 21:20 10/05/18 21:30 10/05/18 21:40 Temperature Temperature Source Sepsis Action Taken by Nursing Pulse Rate 68 69 72 Pulse Rate [Finger] Respiratory Rate 10 L 14 19 Respiratory Effort / Characteristics Respiratory Depth Blood Pressure Blood Pressure [Right Arm] Blood Pressure Mean Blood Pressure Mean [Right Arm] Pulse Oximetry Oxygen Delivery Method 10/05/18 21:50 10/05/18 22:00 10/05/18 22:01 Temperature Temperature Source Sepsis Action Taken by Nursing Pulse Rate 65 67 69 Pulse Rate [Finger] Respiratory Rate 12 8 L 3 L Respiratory Effort / Characteristics Respiratory Depth Blood Pressure 138/75 Blood Pressure [Right Arm] Blood Pressure Mean 96 Blood Pressure Mean [Right Arm] Pulse Oximetry 94 95 Oxygen Delivery Method 10/05/18 22:03 10/05/18 22:31 10/05/18 23:01 Temperature Temperature Source Sepsis Action Taken by Nursing Pulse Rate 76 67 Pulse Rate [Finger] 91 H Respiratory Rate 23 13 Respiratory Effort / Characteristics Respiratory Depth Blood Pressure 139/86 118/77 Blood Pressure [Right Arm] 138/75 Blood Pressure Mean 103 90 Blood Pressure Mean [Right Arm] 96 Pulse Oximetry 95 92 93 Oxygen Delivery Method Room Air 10/05/18 23:31 10/05/18 23:32 10/06/18 00:01 Temperature Temperature Source Sepsis Action Taken by Nursing Pulse Rate 70 68 67 Pulse Rate [Finger] Respiratory Rate Respiratory Effort / Characteristics Respiratory Depth Blood Pressure 123/80 123/64 Blood Pressure [Right Arm] Blood Pressure Mean 94 83 Blood Pressure Mean [Right Arm] Pulse Oximetry 92 95 Oxygen Delivery Method 10/06/18 00:31 Temperature Temperature Source Sepsis Action Taken by Nursing Pulse Rate 68 Pulse Rate [Finger] Respiratory Rate Respiratory Effort / Characteristics Respiratory Depth Blood Pressure 131/63 Blood Pressure [Right Arm] Blood Pressure Mean 85 Blood Pressure Mean [Right Arm] Pulse Oximetry 98 Oxygen Delivery Method GENERAL: Sitting up in bed, alert, ill appearing, well nourished, moderate distress, non-toxic EYE EXAM: normal conjunctiva. OROPHARYNX: no exudate, no erythema, lips, buccal mucosa, and tongue normal and mucous membranes are moist NECK: supple, no nuchal rigidity, no adenopathy, non-tender LUNGS: Clear to auscultation. Normal chest wall mechanics HEART: no murmurs, S1 normal and S2 normal ABDOMEN: abdomen, normo-active bowel, sounds, no masses, no rebound or guarding. Abd is distended tender and old midline incision si noted. BACK: Back is symmetrical on inspection and there is no deformity, no midline tenderness, no CVA tenderness. SKIN: no rashes and no bruising UPPER EXTREMITIES: upper extremities are grossly normal. LOWER EXTREMITIES: No pitting edema. NEURO EXAM: Normal sensorium, cranial nerves II-XII grossly intact, normal speech, no gross weakness of arms, no gross weakness of legs. Course ED COURSE: Vital signs were reviewed and showed normal. The patients medical record was reviewed The above diagnostic studies were performed and reviewed. ED treatments and interventions as stated above. 1921: The patient was evaluated in room B09. A complete history and physical examination was performed. Based on the patients age, coexisting illnesses, exam and lab findings the decision to treat as an inpatient was made. The patient remained stable while under my care. The patient will be evaluated for further management. Administered Medications Ioversol (Optiray 320 100ml) 90 ml IV ONCE PRN PRN Reason: Interaction Checking Stop: 10/09/18 20:36 Last Admin: 10/05/18 20:38 Dose: 90 ml Discontinued Medications Hydromorphone HCl (Dilaudid) 0.5 mg IV NOW STA Stop: 10/05/18 19:32 Last Admin: 10/05/18 19:50 Dose: 0.5 mg Hydromorphone HCl (Dilaudid) 1 mg IV NOW STA Stop: 10/05/18 21:12 Last Admin: 10/05/18 21:31 Dose: 1 mg Sodium Chloride (Nss 1000ml) 2,000 mls @ 999 mls/hr IV .Q2H1M RUI Stop: 10/05/18 21:45 Last Infusion: 10/05/18 22:15 Dose: 0 mls/hr Admin: 10/05/18 19:50 Dose: 999 mls/hr Promethazine HCl 25 mg/ Sodium (Chloride) 51 mls @ 204 mls/hr IV NOW STA Stop: 10/06/18 00:02 Last Infusion: 10/06/18 00:12 Dose: 0 mls/hr Admin: 10/05/18 23:56 Dose: 204 mls/hr Metoclopramide HCl (Reglan) 10 mg IV NOW STA Stop: 10/05/18 22:02 Last Admin: 10/05/18 22:12 Dose: 10 mg Ondansetron HCl (Zofran) 4 mg IV NOW STA Stop: 10/05/18 19:32 Last Admin: 10/05/18 19:50 Dose: 4 mg Ondansetron HCl (Zofran) 4 mg IV NOW STA Stop: 10/05/18 21:12 Last Admin: 10/05/18 21:31 Dose: 4 mg Promethazine HCl (Phenergan) Confirm Administered Dose 25 mg IV .STK-MED ONE Stop: 10/05/18 23:55 Last Admin: 10/05/18 23:56 Dose: Not Given Medical Decision Making Differential Diagnosis Differential diagnosis: Etiologies such as appendicitis, diverticulitis, PUD, biliary pathology, UTI, pancreatitis, obstruction, mesenteric ischemia, aortic pathology, infections, inflammatory bowel disease, renal colic, as well as others were entertained. Medical Records Attestation: I reviewed the patient's medical records. Home Medications Current Medication List: was personally reviewed by me Laboratory Data Attestation: I reviewed the patient's lab results. Result diagrams: 10/05/18 19:40 10/05/18 19:40 Lab Results 10/05/18 10/05/18 Range/Units 19:40 19:40 WBC 13.03 H (4.8-10.8) K/uL RBC 3.93 L (4.7-6.1) M/uL Hgb 10.5 L (14.0-18.0) g/dL Hct 33.3 L (42-52) % MCV 84.7 (80-100) fL MCH 26.7 (25-34) pg MCHC 31.5 L (32-36) g/dL RDW Std Deviation 58.7 H (36.4-46.3) fL RDW Coeff of Hortencia 19.1 H (11.5-14.5) % Plt Count 211 (130-400) K/uL MPV 9.3 (7.4-10.4) fL Immature Gran % (Auto) 1.9 % Neut % (Auto) 69.3 % Lymph % (Auto) 20.3 % [place] % (Auto) 8.2 % Eos % (Auto) 0.2 % Baso % (Auto) 0.1 % Immature Gran # (Auto) 0.25 H (0.00-0.02) K/uL Neut # (Auto) 9.04 H (1.4-6.5) K/uL Lymph # (Auto) 2.64 (1.2-3.4) K/uL [place] # (Auto) 1.07 H (0.11-0.59) K/uL Eos # (Auto) 0.02 (0-0.5) K/uL Baso # (Auto) 0.01 (0-0.2) K/uL Sodium 140 (136-145) mmol/L Potassium 3.3 L (3.5-5.1) mmol/L Chloride 109 H (98-107) mmol/L Carbon Dioxide 22 (21-32) mmol/L Anion Gap 10.0 (3-11) BUN 22 H (7-18) mg/dl Creatinine 0.60 (0.6-1.4) mg/dl Est Cr Clr Drug Dosing 121.0 ml/min Est GFR ( Amer) 112.4 Est GFR (Non-Af Amer) 97.0 BUN/Creatinine Ratio 35.8 H (10-20) Glucose 132 H (70-99) mg/dl Calcium 7.3 L (8.5-10.1) mg/dl Total Bilirubin 0.4 (0.2-1) mg/dl AST 17 (15-37) U/L ALT 11 L (12-78) U/L Alkaline Phosphatase 140 H (45-117) U/L Total Protein 4.7 L (6.4-8.2) gm/dl Albumin 1.6 L (3.4-5.0) gm/dl Globulin 3.1 (2.5-4.0) gm/dl Albumin/Globulin Ratio 0.5 L (0.9-2) Lipase 35 L (73-393) U/L Imaging Data Radiologist's Impression: Radiology results as stated below per my review and the radiologist's interpretation: CT abd pelvis IV con only CLINICAL HISTORY: General is abdominal pain COMPARISON STUDY: 09/25/2018 TECHNIQUE: The patient was scanned in a dynamic helical fashion during intravenous administration of 90 cc of Optiray 320. A dose lowering technique was utilized adhering to the principles of ALARA. CT DOSE: 568.84 mGy.cm FINDINGS: Lower chest: There is a persistent left pleural effusion with associated left lower lobe atelectasis/consolidation. Liver: The liver has a cirrhotic morphology. No focal hepatic masses are visualized. There is pneumobilia. Gallbladder: Surgically absent. Spleen: The spleen is mildly enlarged measuring 14 cm. Pancreas: The pancreas is atrophic. No focal masses are visualized. The patient is status post a pancreatic head resection. Adrenal glands: Unremarkable. Kidneys: There is symmetric renal cortical enhancement. The kidneys are normal in size without hydronephrosis. Bowel: There are postsurgical changes of a choledochojejunostomy. There are no transition zones indicate bowel obstruction. There is mild diffuse colonic wall thickening nonspecific finding which could be secondary to an enteritis or secondary to the patient's presumed cirrhosis. There is no acute diverticulitis. There are no findings to indicate acute appendicitis. There is interval decrease in the size of the perigastric abscess. 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 Peritoneum: There is increasing low volume ascites. No free intraperitoneal air is visualized Vasculature: The abdominal aorta is normal in course and caliber. Adenopathy: None. Pelvic viscera: There are surgical clips in the pelvis, likely secondary to a prior prostatectomy. There is a fluid and gas collection which appears to abut the bladder. This appears smaller than the prior study, and likely represents interval decrease in the size of the previously described abscess. Skeletal structures: Postsurgical changes are present within the spine. No destructive lesions are visualized. IMPRESSION: 1. Persistent left pleural effusion and presumed left lower lobe rounded atelectatic changes 2. Cirrhotic morphology of the liver. Mild splenomegaly 3. Postsurgical pneumobilia 4. Postsurgical changes of a pancreatic head resection and choledochojejunostomy 5. Increasing low volume ascites 6. Suspected interval decrease in the size of the pelvic abscess abutting the bladder. A fistula to the bladder and sigmoid must be considered. 7. Evidence for prior prostatectomy 8. Diffuse colonic wall thickening. The findings could be secondary to an enteritis or secondary to cirrhosis. 9. Interval decrease in the size of the perigastric abscess. 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 Electronically signed by: Howard White M.D. 10/05/2018 9:01 PM Blood Pressure Blood Pressure Findings: Elevated blood pressure Blood Pressure Disposition: elevated BP felt to be situational MDM Narrative Patient is a 78-year-old male with a past medical history of pancreatic cancer that was discharged from [facility] week ago who recently stopped chemo and radiation has hospice coming to the home on Saturday. He has been having worsening abdominal pain over the past 3 days. IV was established and labs were obtained and showed a leukocytosis of 13,000. No significant anemia. BMP with mild hypokalemia. LFTs and lipase was unremarkable. CT shows no significant acute pathology. IV was established patient was given IV fluids, multiple doses of IV Zofran, Reglan and Phenergan. He still has some intermittent persistent vomiting. He was given multiple dose of IV Dilaudid. Patient was monitored closely. Long conversation with both the patient and family members. He is for the time being and DNR/DNI. I discussed with him hospice. He will likely need to discuss with palliative care for additional information prior home treatment. Patient, and son were updated at bedside as well. Impression & Plan Vomiting, Intractable pain, Pancreatic cancer, Ascites Discharge Plan Visit Data Chief Complaint: Abdominal Pain Stated Complaint: cancer-will explain ED Provider: Apolinar Lopez Discharge Problem: Vomiting, Intractable pain, Pancreatic cancer, Ascites Discharge Instructions Interventions: ED Discharge Assessment Last Done: 10/06/18 00:46 The scribe's documentation has been prepared under my direction and personally reviewed by me in its entirety. I confirm that the note above accurately reflects all work, treatment, procedures, and medical decision making performed by me.
[2018-10-06] MEDS ORDERED: ACETAMINOPHEN 65 ML IV PRN (01:05)
[2018-10-06] MEDS ORDERED: GLUCOSE 40% GEL 15 GM TUBE PO PRN (01:05)
[2018-10-06] MEDS ORDERED: GLUCAGON FOR INJ 1 MG VIAL SQ PRN (01:05)
[2018-10-06] MEDS ORDERED: GLUCOSE 10 TABS/TUBE PO PRN (01:05)
[2018-10-06] MEDS ORDERED: DEXTROSE 50% 50 ML SYRINGE IV PRN (01:05)
[2018-10-06] MEDS ORDERED: ONDANSETRON INJ 2 MG/ML 2 ML VIAL IV PRN (01:05)
[2018-10-06] MEDS ORDERED: MoRPHine SULFATE 4 MG/ML 1 ML CARP\\VIAL IV PRN (01:05)
[2018-10-06] MEDS ORDERED: CARBOHYDRATES FOR HYPOGLYCEMIA PO PRN (01:05)
[2018-10-06 01:26] LABS: Magnesium 1.9 mg/dl (1.8-2.4); Phosphorus 2.6 mg/dl (2.5-4.9)
[2018-10-06] MEDS ORDERED: CALCIUM GLUCONATE 10% 1,000 MG in SODIUM CHLORIDE 0.9% 50 ML IV ONE (01:45)
[2018-10-06] MEDS ORDERED: POTASSIUM CHLORIDE 30 MEQ in LACTATED RINGER'S 1,000 ML IV SCH (01:45)
[2018-10-06 02:42] LABS: INR 1.1 (0.9-1.1); Prothrombin Time 11.4 Seconds (9.0-12.0)
[2018-10-06 06:22] LABS: Basophils # (auto) 0.02 K/uL (0-0.2); Basophils % (auto) 0.2 %; Eosinophils # (auto) 0.01 K/uL (0-0.5); Eosinophils % (auto) 0.1 %; Hematocrit (blood only) 31.5 % (42-52); Hemoglobin 9.7 g/dL (14.0-18.0); Immature Granulocytes # (auto) 0.19 K/uL (0.00-0.02); Immature Granulocytes % (auto) 1.8 %; Lymphocytes # (auto) 1.98 K/uL (1.2-3.4); Lymphocytes % (auto) 18.6 %; Mean Corpuscular Hgb Conc 30.8 g/dL (32-36); Mean Corpuscular Volume 85.6 fL (80-100); Mean Platelet Volume 9.1 fL (7.4-10.4); Monocytes # (auto) 0.83 K/uL (0.11-0.59); Monocytes % (auto) 7.8 %; Neutrophils % (auto) 71.5 %; Platelet Count 176 K/uL (130-400); RDW Coefficient of Variation 19.2 % (11.5-14.5); RDW Standard Deviation 60.4 fL (36.4-46.3); Red Blood Count 3.68 M/uL (4.7-6.1); White Blood Count 10.63 K/uL (4.8-10.8)
[2018-10-06 06:42] LABS: BUN Creatinine Ratio 37.5 (10-20); Calcium 7.2 mg/dl (8.5-10.1); Est GFR (African American) 120.2; Est GFR (Non-African American) 103.7; Potassium 3.5 mmol/L (3.5-5.1)
[2018-10-06] MEDS: INSULIN ASPART 100 UNITS/ML 3 ML PEN SC SCH ×4 (08:44→20:34)
[2018-10-06] MEDS: PREGABALIN 75 MG CAP PO SCH ×2 (08:49→20:49)
[2018-10-06] MEDS: ENOXAPARIN INJ 40 MG/0.4 ML SYR SQ SCH (08:49)
[2018-10-06] MEDS: METOCLOPRAMIDE HCL INJ 5 MG/ML 2 ML VIAL IV SCH ×3 (08:50→20:49)
[2018-10-06] MEDS: HEPARIN 100 UNIT/ML 5ML FLUSH FLUSH PRN ×2 (08:51→15:06)
[2018-10-06] MEDS: SUCRALFATE 1 GM TAB PO SCH (09:48)
--- NOTE | 2018-10-06 10:05 | Palliative Care Consultation ---
Date of Consultation October 06, 2018 Assessment & Plan (1) Goals of care, counseling/discussion: -78 year old male with PMH multiple cancers including diffuse large B- cell lymphoma in 2015 and pancreatic adenocarcinoma s/p Whipple in 2014. In May 2018 he was admitted to [facility] with bowel obstruction and rectal stricture which was found to be metastatic prostate ca. He was treated with gemcitabine and Abraxane but has been having difficulties tolerating treatment secondary to dehydration and diarrhea. Patient was recently admitted to [facility] 09/24 with failure to thrive and weakness. 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 He was subsequently transferred to [facility] for possible surgical intervention. While at [facility] he had his bowel stent removed, but no other intervention done. He was discharged home with his . He apparently had decided that he would forego any further chemotherapy and was referred to hospice. Hospice agency was to meet with patient and family on Saturday 10/07, but he developed acute abdominal pain at home and had to come to ED. He was not on any pain medications at home. CT abd/pelvis shows persistent but somewhat improved abdominal abscess, many surgical changes, and metastatic disease; no obstruction. Patient continues to pass stool and urin through his urinary tract. He was given one dose of IV Dilaudid in ED, one dose of IV morphine today and pain is improved from 9/10 to 5/10. Palliative care is consulted for pain management and to provide supportive care in transitioning to hospice. -Met with patient in room 407. He is awake, alert and oriented x4. He states his pain is much better. The pain is a constant burning and tightness around the bottom of his abdomen. He is passing gas and stool. Was nauseated last night when pain severe, but no long has N/V. -Discussed goals of care. Patient states he plans to go home with hospice. He confirmed that he was to meet with them tomorrow 10/07, but had to come in because of pain. He gave me permission to call his . Called patient's but no answer. -Case management following who was able to speak with patient's . Referral to [facility] hospice. Will get this set up for home. -Switch IV morphine to Roxanol 5mg PO/SL Q3h PRN pain or SOB. If frequent PRN doses are needed, can start long-acting pain medication. (2) Abdominal pain: Abdominal location: lower abdomen, unspecified Qualified Code(s) : R10.30 - Lower abdominal pain, unspecified (3) Pancreatic cancer: Pancreatic malignancy location: unspecified Qualified Code(s): C25.9 - Malignant neoplasm of pancreas, unspecified Supervising Physician Co-Signing Physician Notes Chart reviewed, patient seen and examined, at bedside. Patient drowsy, but did indicate that he could hear our conversation, would only nod to simple questions. PE: Appears comfortable HEENT: Normal hearing Respirations: Unlabored CV: Regular rate Abdomen: Not distended Neuro: Somnolent Agree with above note, assessment and plan as per FANNY Li Discussed at length with patient's ID is to increase patient's nutrition as this is 1 of her main concerns. We will continue to follow and assist with any medical decision making as needed. History of Present Illness Attending Physician: Celso Armendariz MD History of Present Illness This 78 year old male with PMH multiple cancers including diffuse large B-cell lymphoma in 2014 and pancreatic adenocarcinoma s/p Whipple in 2014. In May 2018 he was admitted to [facility] with bowel obstruction and rectal stricture which was found to be metastatic prostate ca. He was treated with gemcitabine and Abraxane but has been having difficulties tolerating treatment secondary to dehydration and diarrhea. Patient was recently admitted to [facility] 09/24/18 with failure to thrive and weakness. 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 He was subsequently transferred to [facility] for possible surgical intervention. While at [facility] he had his bowel stent removed, but no other intervention done. He was discharged home with his . He apparently had decided that he would forego any further chemotherapy and was referred to hospice. Hospice agency was to meet with patient and family on Saturday 10/07, but he developed acute abdominal pain at home and had to come to ED. He was not on any pain medications at home. CT abd/pelvis shows persistent but somewhat improved abdominal abscess, many surgical changes, and metastatic disease; no obstruction. Patient continues to pass stool and urin through his urinary tract. He was given one dose of IV Dilaudid in ED, one dose of IV morphine today and pain is improved from 9/10 to 5/10. Palliative care is consulted for pain management and to provide supportive care in transitioning to hospice. Thank you kindly for this consult. I will follow. Allergies Allergy/AdvReac Type Severity Reaction Status Date / Time ezetimibe Allergy Intermediate "JUST Verified 10/05/18 20:05 DIDN'T FEEL RIGHT" gabapentin Allergy Intermediate "JUST Verified 10/05/18 20:05 DIDN'T FEEL RIGHT" Home Medications Home Medications Medication Instructions Recorded Confirmed Type omeprazole 20 mg PO DAILY PRN 04/30/18 10/05/18 History calcium carbonate-vitamin D3 1 tab PO DAILY #30 tab 08/22/18 10/05/18 Rx [Calcium 500 With D] magnesium oxide 400 mg PO BID #10 cap 08/22/18 10/05/18 Rx insulin glargine [Lantus U-100 0 unit SUBCUT HS PRN 10/05/18 10/05/18 History Insulin] potassium chloride 20 meq PO DAILY PRN 10/05/18 10/05/18 History pregabalin [Lyrica] 225 mg PO BID 10/05/18 10/05/18 History sucralfate [Carafate] 1 g PO QDB 10/05/18 10/05/18 History Patient History Medical History Intractable pain (Acute 10/06/14) GERD (gastroesophageal reflux disease) (Chronic) HTN (hypertension) (Chronic) Non-occlusive coronary artery disease (Chronic) Febrile neutropenia (Resolved) Neutropenic fever (Acute) Diabetes (Chronic) NHL (non-Hodgkin's lymphoma) (Chronic 10/06/14) Pancreatic abnormality (Acute) IPMN (intraductal papillary mucinous neoplasm) (Chronic) Prostate cancer (Resolved) Diabetic gastroparesis (Chronic) Pancreatic cancer (Chronic) Obstructive jaundice (Chronic) Chemotherapy-induced neuropathy (Chronic) LBBB (left bundle branch block) (Chronic) [place] (acute kidney injury) (Chronic) Ascites (Chronic) Cirrhosis of liver (Chronic) Hypokalemia (Chronic) PVCs (premature ventricular contractions) (Chronic) Prolonged QT interval (Chronic) SBP (spontaneous bacterial peritonitis) (Chronic) Traumatic hematuria (Resolved) UTI (urinary tract infection) (Resolved) Iron deficiency anemia (Chronic) Hypotension (Resolved) Pancytopenia (Chronic) Neutropenia (Chronic) Back pain (Acute) Cholangitis (Chronic) Diarrhea Elevated lipase (Acute) Fever and chills (Acute) Hypokalemia (Acute) Lactic acidosis (Acute) Neutropenic fever (Acute) Right wrist pain (Acute) Sepsis (Acute) Wound drainage (Acute) Cancer PANCREATIC CANCER LYMPHOMA-CHEMO CURRENTLY (LAST 04/14/18) PROSTATE Diabetes mellitus, type 2 GERD (gastroesophageal reflux disease) Peripheral neuropathy Surgical History History of cardiac cath 5 YEARS AGO/NO STENTS History of cataract surgery History of colonoscopy History of pancreatic surgery Whipple procedure History of prostatectomy History of tooth extraction Family History Mother Family history of diabetes mellitus Social History Current Living Situation: Spouse Feels Safe at Home: Yes Safety Concerns: Feels Safe At This Time Smoking Status: Never smoker Second Hand Exposure: No Hx Alcohol Use: No Hx Substance Use: No Beliefs That Will Affect Care: None Communication Ability: Effective Review of Systems Constitutional: + weakness Ear, Nose, Mouth, Throat: no dysphagia Respiratory: no cough and no dyspnea Cardiovascular: no chest pain and no edema Gastrointestinal: + abdominal pain; no nausea and no vomiting Genitourinary (Male): as per Subjective / HPI Musculoskeletal: no back pain Neurologic: no confusion Psychiatric: no anxiety Physical Exam 2 Vital Signs (Past 24 Hours): Last Vital Signs Temp 36.3 C L 10/06/18 07:34 Pulse 64 10/06/18 07:34 Resp 18 10/06/18 07:34 BP 98/63 L 10/06/18 07:34 Pulse Ox 94 10/06/18 07:34 Constitutional: + thin and + frail appearing ENMT: Ears: no hearing impairment Neck: normal visual inspection and trachea midline Respiratory: normal respiratory effort, lungs clear to auscultation Cardiovascular: RRR, no murmur, no edema Gastrointestinal (Abdomen): Inspection/Auscultation: + abdomen distended (mild ) Percussion/Palpation: + abdomen tender (firm) Skin: no rashes, warm and dry Neurologic: awake; not confused Psychiatric: A+Ox3, euthymic affect Time Spent Midlevel 50 minutes with >50% of time spent at bedside with patient discussing condition and GOC.
--- NOTE | 2018-10-06 10:06 | Hospitalist Progress Note ---
Date of Service October 06, 2018 Assessment & Plan (1) Abdominal pain: Patient with 2-3 days of lower abdominal pain, CT Abdomen performed with no obstruction, stable findings from previous study. Post-surgical changes. He does have decrease in the size of the pelvic abscess abutting the bladder. Fistula to the bladder and sigmoid again considered. ?enteritis with diffuse colonic wall thickening. Unclear etiology of abdominal pain. As patient describes transient distention would be concerned for possible obstruction. His colonic stent was removed at [facility]. His abdomen is presently not distended, +BS. -Zofran PRN -Reglan PRN -Morphine PRN -Tylenol PRN -Palliative Care consult - appreciate assistance with this case (2) Pancreatic cancer: Patient is presently not on chemotherapy. He has decided to pursue home hospice services. Hospice is to come to the home on Saturday. -Palliative Consult inpatient - appreciate assistance -Case management consult -Consider Oncology consultation (3) Diabetes: Blood sugar well controlled at present, 132. Patient is not eating much. Has history of gastroparesis -ISS -CC diet -Reglan as above -Continue Lyrica -Check EKG - patient with history of prolonged QT (4) HTN (hypertension): Blood pressure fairly well controlled at present -Continue to monitor (5) GERD (gastroesophageal reflux disease): Stable at present -Will give Protonix 40mg IV daily -Sucralfate daily (6) Hypokalemia: F/E/N- LR at 80mL/hr with K 30mEq, check Mg level and replete IV as needed , CC full liquid diet as tolerated, Boost supplements, consider Megace for appetite stimulation Ppx - Lovenox, Protonix as above Code - DNR Subjective pt is slightly confused but is agreeable to hospice care, this has previoulsy been coordinated to start as an outpt on 10/07. He has less abdominal bloating. he has good pain control . Constitutional: + fatigue and + weakness Respiratory: no cough, no chest congestion and no dyspnea Cardiovascular: no chest pain and no dyspnea on exertion Gastrointestinal: + abdominal pain (mild); no nausea and no vomiting Musculoskeletal: no joint pain and no swelling Integumentary: no rash and no lesions Physical Exam 2 Vital Signs (Past 24 Hours): Last Vital Signs Temp 36.3 C L 10/06/18 07:34 Pulse 64 10/06/18 07:34 Resp 18 10/06/18 07:34 BP 98/63 L 10/06/18 07:34 Pulse Ox 94 10/06/18 07:34 Constitutional: well developed, average body habitus and + lethargic Eyes: no conjunctival abnormality and no scleral abnormality Neck: normal visual inspection and trachea midline Respiratory: normal respiratory effort, + respiratory distress and + labored breathing Auscultation: lungs clear to auscultation bilaterally Cardiovascular: RRR, no murmur, no edema Gastrointestinal (Abdomen): Inspection/Auscultation: + abnormal bowel sounds Musculoskeletal: no cyanosis or clubbing, extremities motor strength 5/5 _ (1) Pancreatic cancer Pancreatic malignancy location: unspecified Qualified Code(s): C25.9 - Malignant neoplasm of pancreas, unspecified (2) Diabetes Chronic kidney disease stage: Diabetes mellitus complication detail: Diabetes mellitus complication status: without complication Diabetes mellitus precast worker insulin use: with senior care use Diabetes mellitus macular edema: Diabetes mellitus type: type 2 Diabetic retinopathy severity: Laterality: Proliferative retinopathy type: Qualified Code(s): E11.9 - Type 2 diabetes mellitus without complications; Z79.4 - access clerk (current) use of insulin (3) GERD (gastroesophageal reflux disease) Esophagitis presence: esophagitis presence not specified Qualified Code(s): K21.9 - Gastro-esophageal reflux disease without esophagitis (4) Abdominal pain Abdominal location: lower abdomen, unspecified Qualified Code(s): R10.30 - Lower abdominal pain, unspecified (5) HTN (hypertension) Hypertension type: essential hypertension Qualified Code(s): I10 - Essential (primary) hypertension
[2018-10-06] MEDS: PANTOprazole 40 MG in SYRINGE 0 ML IV SCH (11:08)
[2018-10-06] MEDS ORDERED: MoRPHine SULFATE 5 MG/0.25 ML UDP PO PRN (12:28)
[2018-10-07] MEDS: ENOXAPARIN INJ 40 MG/0.4 ML SYR SQ SCH (08:21)
[2018-10-07] MEDS: SUCRALFATE 1 GM TAB PO SCH (08:21)
[2018-10-07] MEDS: PREGABALIN 75 MG CAP PO SCH (08:21)
[2018-10-07] MEDS: METOCLOPRAMIDE HCL INJ 5 MG/ML 2 ML VIAL IV SCH ×2 (08:21→13:34)
[2018-10-07] MEDS: INSULIN ASPART 100 UNITS/ML 3 ML PEN SC SCH ×2 (08:22→12:55)
[2018-10-07] MEDS: PANTOprazole 40 MG in SYRINGE 0 ML IV SCH (11:14)
[2018-10-07] MEDS: HEPARIN 100 UNIT/ML 5ML FLUSH FLUSH PRN ×2 (11:14→13:26)
--- NOTE | 2018-10-07 17:09 | Discharge Summary ---
Date of Service October 07, 2018 Admission HPI Per Admitting Provider Mr. Guerra is an unfortunate 78yo male with history of multiple malignancies. 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 Diagnosed with pancreatic adenocarcinoma in December 2014 s/p Whipple in July 2015 with adjuvant gemcitabine. 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 He was admitted to [facility] in May 2018 with colonic obstruction and found to have a malignant stricture in his rectum. A stent was placed. Biopsies consistent wtih metastatic pancreatic cancer. He was treated with gemcitabine and Abraxane but has been having difficulties tolerating treatment secondary to dehydration and diarrhea. Patient was recently admitted to [facility] 09/24/18 with failure to thrive and weakness. 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 He was subsequently transferred to [facility] for possible surgical intervention. While at [facility] he had his bowel stent removed. No further surgical intervention was pursued. He was discharged to home 8 days ago. Since then he has been doing fairly well, although he has been weak and not eating. He had some mild abdominal bloating but that has resolved. He is passing stools but describes them more as a "thick slime" which is relatively unchanged for the last few months. He denies fevers/chills/nausea/vomiting/CP/sob. He presents today with 2-3 days of abdominal discomfort. He describes it as bandlike burning and discomfort across the lower portion of his abdomen. He first experienced this discomfort after his Whipple. As above, he has not been eating much. He will occasionally drink Boost or Ensure but states that his appetite is quite poor. He developed nausea in the ER after receiving Dilaudid with multiple episodes of small volume vomiting. Patient is presently not undergoing chemotherapy. He has decided to stop chemo and pursue home hospice services. Hospice was scheduled to come to their home on Saturday. 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 with pain control for transition to palliative care Discharge Exam Constitutional well developed and average body habitus Eyes no conjunctival abnormality and no scleral abnormality Neck normal visual inspection and trachea midline Respiratory normal respiratory effort; no respiratory distress Auscultation: lungs clear to auscultation bilaterally Cardiovascular Rate/Rhythm: regular rhythm Heart Sounds: + murmur Gastrointestinal (Abdomen) Inspection/Auscultation: normal bowel sounds Percussion/Palpation: abdomen soft Discharge Data Allergies Allergy/AdvReac Type Severity Reaction Status Date / Time ezetimibe Allergy Intermediate "JUST Verified 10/05/18 20:05 DIDN'T FEEL RIGHT" gabapentin Allergy Intermediate "JUST Verified 10/05/18 20:05 DIDN'T FEEL RIGHT" Consultations 10/05/18 22:03 ED Decision to Admit Stat 10/06/18 01:05 Consult Case Management - Discharge Planning Routine Consult Palliative Care Routine Ordered Studies 10/05/18 19:31 CT abd pelvis IV con only Stat Hospital Course (1) Abdominal pain: Patient with 2-3 days of lower abdominal pain, CT Abdomen performed with no obstruction, stable findings from previous study. Post-surgical changes. He does have decrease in the size of the pelvic abscess abutting the bladder. Fistula to the bladder and sigmoid again considered. His colonic stent was removed at [facility]. His abdomen is not distended at time of discharge -Palliative Care consult - transition to hospice care at home (2) Pancreatic cancer: Patient is presently not on chemotherapy. He has decided to pursue home hospice services. Hospice is to come to the home on Saturday10/07/18. (3) Diabetes: Blood sugar well controlled at present, 132. Patient is not eating much. Has history of gastroparesis will not dishcharge on outpt diabetic meds (4) HTN (hypertension): no meds at discharge (5) GERD (gastroesophageal reflux disease): protonix and sulcrafate as needed (6) Hypokalemia: Code - DNR Total Time Total Time Spent Total Time Spent (In Minutes): greater than 30 minutes were required to prepare discharge I did spend at least 25 minutes face to face with family discussiong hospice care and end of life discussion in addition to usual visit and pre visit preparation Discharge Plan Discharge Items Patient Disposition: Hospice - Home Reason For Visit: ABDOMINAL PAIN Discharge Diagnosis: metastitic pancreatic cancer, pelvic abscess and enterovesicular fistulae Discharge Goals: Decrease discomfort and Improve disease control Activity: As commented below Activity Comment: no need to force activity Non-emergency contact: Specialist Call non-emergency contact if: you have any medication questions Diet: Regular Diet Comment: pt may eat what and when he wants Addtl Provider Instructions: Please follow up with home hospice services Prescriptions: New morphine concentrate 100 mg/5 mL (20 mg/mL) Solution 20 mg PO Q2H PRN (Reason: pain) Qty: 120 RF: 0 lorazepam [Ativan] 0.5 mg tablet 0.5 mg PO TID PRN (Reason: anxiety) Qty: 20 RF: 0 ondansetron HCl [Zofran] 4 mg tablet 4 mg PO Q8H 3 Days Qty: 9 RF: 0 Discontinued omeprazole 20 mg Tablet,Delayed Release (Dr/Ec) 20 mg PO DAILY PRN (Reason: Indigestion) RF: 0 magnesium oxide 400 mg capsule 400 mg PO BID Qty: 10 RF: 0 calcium carbonate-vitamin D3 [Calcium 500 With D] 500 mg(1,250mg) -400 unit tablet 1 tab PO DAILY Qty: 30 RF: 0 potassium chloride 20 mEq tablet extended release 20 meq PO DAILY PRN (Reason: "FEELING DRAINED") RF: 0 insulin glargine [Lantus U-100 Insulin] 100 unit/mL Solution SUBCUT HS PRN (Reason: DEPENDS ON BSG-SLIDING SCALE) RF: 0 sucralfate [Carafate] 1 gram Tablet 1 g PO QDB RF: 0 pregabalin [Lyrica] 225 mg Capsule 225 mg PO BID RF: 0 Stand-Alone Forms: [facility] Discharge Orders: Discharge Order (Routine); Ordered 10/07/18 Ordered By: Celso Armendariz Admission Data Admit Date/Time: 10/05/18 23:27 Attending Provider: Celso Armendariz Admit Provider: Bibi Marie Primary Care Provider: Dwain Gutierrez III Other Providers: Bibi Marie ; Samantha Mckay Service: Medical Other Interventions: Discharge Summary Assessment (RN) Last Done: 10/07/18 12:58 DC Date/Time DO NOT enter until pt leaves facility: 10/07/18 13:40
== END 2018-10-07 13:40 | disposition hospice, home (50) | DRG 372 ==
LOC: ED 19:16 → 4E 23:27 → SUATTDRO 23:27 → 4E 10-06 00:46